=== PATIENT | male | born 1930 | race Caucasian/White ===

== ENCOUNTER 2017-01-30 18:55 | Inpatient (IN) | payer MEDICARE ==
[2017-01-30] VITALS (7 sets, daily range): BP systolic 107–142; BP diastolic 37–59; PULSE 84–94; RESP 16–20; O2SAT 94–99
[~2017-01-30] VITALS: Ht 172.7 cm; Wt 78.3 kg
[~2017-01-30 18:55] MED LIST: ATOR40TA69 PO; CITA10TA9 PO; CLOP75TA28 PO; DORZ10DR20 BOTH_EYES; GLIP2.5T2 PO; METO25TA6 PO; OMEP20CA11 PO; PRD5T PO; WARF1TAB6 PO; ZYL100 PO
--- NOTE | 2017-01-30 19:24 | ED.REPORT ---
HPI-General Illness Date of Service January 30, 2017 ED Provider: Matt Wheat DO An 86 year old male on Coumadin with a history of cerebellar CVA, diabetes, atrial fibrillation and hyperlipidemia is brought to the ED via EMS due to a possible fall. The pt was found down in his bedroom by paramedics today, laying on the floor. The pt's ex last spoke to him two days ago and states that he was acting normally at that time. She did not hear from him yesterday but did not think anything of it. She called the pt several times today without a reply, and asked the pt's grandson to check on him. The grandson found his car in the driveway but there was no reply when he knocked on the door. Paramedics were called and found the pt on the floor in his bedroom. He was febrile and disoriented with no recollection of the event. Nursing Notes Stated Complaint: FOUND DOWN Chief Complaint: General Complaint Nursing Notes Reviewed: Yes Allergies: Coded Allergies: Penicillins (Verified Allergy, Severe, HIVES, 01/30/17) Scheduled Allopurinol (Allopurinol) 100 Mg Tablet 100 MG PO BID Atorvastatin Calcium (Atorvastatin Calcium) 40 Mg Tablet 40 MG PO DAILY Citalopram (Citalopram) 10 Mg Tablet 10 MG PO DAILY Clopidogrel (Clopidogrel) 75 Mg Tablet 75 MG PO DAILY Dorzolamide HCl/Timolol Maleat (Dorzolamide-Timolol Eye Drops) 10 Ml Drops 1 DROP BOTH_EYES BID Glipizide ER (Glipizide ER) 2.5 Mg Tab.er.24 2.5 MG PO QAM Metoprolol Tartrate (Metoprolol Tartrate) 25 Mg Tablet 12.5 MG PO BID Omeprazole (Omeprazole) 20 Mg Capsule.dr 20 MG PO BID Prednisone (PredniSONE) 5 Mg Tab 5 MG PO QAM Tamsulosin (Flomax) 0.4 Mg Capsule 0.4 MG PO DAILY Warfarin Sodium (Warfarin Sodium) 1 Mg Tablet 3.5 MG PO HS General Time Seen by MD: 19:20 Chief Complaint Other (Found down) Hx Obtained From: Patient, Other family..., EMS Arrived By: Ambulance Sudden in Onset?: Yes Recent Healthcare: Recent doctor visit, Recent hospitalization Similar Sx Previous: No Past Medical History Past Medical History cerebellar CVA type 2 diabetes mellitus atrial fibrillation on Coumadin Gout polymyalgia rheumatica and giant cell arteritis Reports: GERD, Hyperlipidemia Past Surgical History TURP Smoking History Unknown if Ever Smoker Social History Other Social History: Good social support, Local resident Ambulatory Status Independent Review of Systems Unable to Obtain ROS Patient condition Physical Exam Vital Signs Vital Signs Date Time Temp Pulse Resp B/P Pulse Ox O2 Delivery O2 Flow Rate FiO2 01/30/17 21:27 91 18 121/37 99 Nasal Cannula 2 01/30/17 19:11 39.1 94 16 135/46 97 Nasal Cannula 2 Initial VS: Reviewed General/Constitutional: Awake, Alert somnolent but arousable no recollection of what happened slow to respond Head / Eyes: Normocephalic, PERRL, EOMI bruising to the left side of the face exudate in eyelashes ENT: Atraumatic, Airway patent, Mucous membranes moist Neck: Atraumatic, Supple, No meningismus, Full range of motion Respiratory / Chest: Breath sounds NL, Breath sounds = bilat, No respiratory distress Cardiovascular: Heart rate NL, Regular rhythm, Heart sounds NL Abdomen: Atraumatic, Soft epigastric tenderness Back: Atraumatic, Full range of motion Upper Extremities Upper Extremity / MS: Atraumatic, Full range of motion Lower Extremity / Pelvis / MS: No deformity, Neurologic intact, Vascular intact pain with range of motion of the hips Skin: Color NL, No rash, Warm, Dry 10 cm x 4 cm area of erythema and blistering on the left lateral chest Neurologic: Speech NL, No motor deficits, No sensory deficits Psychiatric: Affect NL, Mood NL Interpretation & Diagnostics Interpretation & Diagnostics: Pelvis X-Ray: IMPRESSION: 1. No definite fracture or dislocation, with evaluation of the right femoral neck slightly limited. If clinical concern persists, recommend further evaluation with CT. Dictated by: Jacob Mckeon M.D. on 01/30/2017 at 20:48 Approved by: Jacob Mckeon M.D. on 01/30/2017 at 20:50 Lab Results Interpretation Result Diagram: 01/30/17190901/30/171909 Test 01/30/17 19:10 01/30/17 20:05 01/30/17 20:30 White Blood Count 10.8th/mm3 (3.8-10.1) Red Blood Count 4.18mil/mm3 (4.40-5.80) Hemoglobin 9.1g/dL (13.8-17.2) Hematocrit 31.0% (41.0-50.0) Mean Corpuscular Volume 74.2fL (81-100) Mean Corpuscular Hemoglobin 21.8pg (27.0-35.0) Mean Corpuscular Hemoglobin Concent 29.4% (32.0-37.0) Red Cell Distribution Width 17.4% (12.3-15.4) Platelet Count 328bil/L (150-400) Neutrophils (%) (Auto) 81.0% (40-74) Lymphocytes (%) (Auto) 8.4% (14-46) Monocytes (%) (Auto) 10.5% (4-12) Eosinophils (%) (Auto) 0% (0-5) Basophils (%) (Auto) 0.1% (0-3) Prothrombin Time 12.6sec (8.1-12.5) Prothromb Time International Ratio 1.17ratio Sodium Level 135mEq/L (134-144) Potassium Level 4.1mEq/L (3.5-5.2) Chloride Level 98mEq/L (97-108) Carbon Dioxide Level 19mmol/L (18-29) Blood Urea Nitrogen 25mg/dL (8-27) Creatinine 1.38mg/dL (0.76-1.27) Estimat Glomerular Filtration Rate 52mL/min (>59) Glucose Level 187mg/dL (60-99) Calcium Level 9.0mg/dL (8.5-10.1) Phosphorus Level 1.7mg/dL (2.5-4.9) Magnesium Level 2.2mg/dL (1.6-2.6) Total Bilirubin 0.9mg/dL (0.0-1.2) Aspartate Amino Transf (AST/SGOT) 43U/L (0-50) Alanine Aminotransferase (ALT/SGPT) 18U/L (0-44) Alkaline Phosphatase 66U/L (25-160) Total Creatine Kinase 996U/L (21-232) Troponin T < 0.010ug/L (0.0-0.011) Total Protein 7.7g/dL (6.4-8.4) Albumin 3.6g/dL (3.4-5.0) Procalcitonin 0.75ng/mL (0.00-0.08) Lactic Acid Level 1.9mmol/L (0.4-2.0) Urine Color Yellow (YELLOW) Urine Appearance Clear (CLEAR,HAZY) Urine pH 5.5 (5.0-8.0) Urine Specific [place] 1.030 (1.003-1.035) Urine Protein 100mg/dL (NEG,TRACE) Urine Glucose (UA) Negativemg/dL (NEGATIVE) Urine Ketones 15mg/dL (NEGATIVE) Urine Occult Blood Moderate (NEGATIVE) Urine Nitrite Negative (NEGATIVE) Urine Bilirubin Negative (NEGATIVE) Urine Urobilinogen Normalmg/dL (NORMAL) Urine Leukocyte Esterase Negative (NEGATIVE) Urine RBC 3-10/hpf (0-2) Urine WBC 0-5/hpf (0-5) Urine Epithelial Cells None/hpf (NONE-MOD) Urine Crystals None seen (NONE SEEN) Urine Bacteria Few/hpf (NONE-FEW) Urine Hyaline Casts None/lpf (NONE) Urine Granular Casts None seen (NONE SEEN) Urine Waxy Casts None seen (NONE SEEN) Urine Red Blood Cell Casts None seen (NONE SEEN) Urine White Blood Cell Casts None seen (NONE SEEN) Urine Mucus None seen (None Seen) Urine Trichomonas None seen (NONE SEEN) Urine Yeast None (NONE SEEN) Urinalysis Comment None Pulse Oximetry Interpretation Pulse Oximetry Interpretation: 97% on nasal cannula Pulse Oximetry: Pulse Ox normal ECG Interpretation ECG Interpretation: normal sinus rhythm with a rate of [address] segments no signs of ischemia Time: 19:34 Interpreted by: ED physician X-Ray Chest Interpretation Chest Xray Interpretation: IMPRESSION: 1. No acute traumatic abnormality. Dictated by: Jacob Mckeon M.D. on 01/30/2017 at 19:51 Approved by: Jacob Mckeon M.D. on 01/30/2017 at 19:51 Interpretation / Wet Read by: Interpret - Radiologist CT Head Interpretation IMPRESSION: 1. No acute intracranial abnormality. 2. Mild chronic white matter small vessel ischemic changes and moderate cerebral volume loss. 3. Mild sinus mucosal disease. Dictated by: Jacob Mckeon M.D. on 01/30/2017 at 20:01 Approved by: Jacob Mckeon M.D. on 01/30/2017 at 20:03 CT Abd / Pelvis Interpretation IMPRESSION: 1. Right lower lobe consolidation consistent with pneumonia given clinical history. Consider followup x-ray to demonstrate resolution. 2. 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 Dictated by: Jcaob Mckeon M.D. on 01/30/2017 at 21:06 Approved by: Jacob Mckeon M.D. on 01/30/2017 at 21:13 Interpretation / Wet Read by: Interpret - Radiologist Re-Eval/Medical Decision Source of Hx: Old records Time of Eval: 19:20 Patient Status: Condition improved Re-Evaluation/Progress Note: Pt and family informed of the plan for admission during the initial interview. The pt and his family understand and agree with the plan. All questions are addressed at this time. Consultation : Referral / Consult Name: Lesli Amor DO Consulted With: Hospitalist Call Returned at: 21:55 Staffing Coordinator: Agrees with eval, Agrees with plan, Accepts admit Note: Spoke with Dr. Amor, hospitalist, regarding pt's case. Dr. Amor agrees with the evaluation and agrees to admit the pt. Counseled Regarding: Diagnosis, Lab results, Need for admission Discharge & Departure Primary Impression: Sepsis Sepsis type: sepsis due to unspecified organism Qualified Code: A41.9 - Sepsis, unspecified organism Additional Impressions: Pneumonia Pneumonia type: due to unspecified organism Laterality: right Lung location : lower lobe of lung Qualified Code: J18.1 - Lobar pneumonia, unspecified organism Injury to chest wall Encounter type: initial encounter Qualified Code: S29.9XXA - Unspecified injury of thorax, initial encounter Disposition: ADMITTED TO HOSPITAL Discharge Condition All VS Reviewed: Yes Condition: Stable Referrals: Alexandro Lao MD (PCP) Crit Care Except Billable Proc Time Spent: 165-194 minutes Services Performed: Patient management by me, Time spent at bedside, Reviewing test results, Reviewing imaging, Discussing patient care, Documentation in record, Time with fam/surrogate Scribe Attestation Portions of this note were transcribed by Franco Pope. I, Dr. Wheat personally performed the history, physical exam and medical decision-making; I reviewed and confirmed the accuracy of the information in the transcribed note. Signed by: Jed Fam, 01/30/17 and 2245. copies to: Alexandro Lao MD, Todd P DO January 30, 2017 19:24 FRANCO POPE January 30, 2017 20:10
[2017-01-30] MEDS ORDERED: cefTRIAXone Inj 2,000 MG in Dextrose 5% Minibag Plus 50 ML IV ONE (19:25)
[2017-01-30] MEDS ORDERED: 0.9% Sodium Chloride 1,000 ML IV ONE (19:25)
[2017-01-30] MEDS ORDERED: TAMS0.4C98 PO (19:27)
[2017-01-30 19:29] LABS: BASOPHILS % (AUTO) 0.1 % (0-3); EOSINOPHILS % (AUTO) 0 % (0-5); MONOCYTES % (AUTO) 10.5 % (4-12); Mean Corpuscular Hemoglobin 21.8 pg (27.0-35.0); Mean Corpuscular Volume 74.2 fL (81-100); Platelet Count 328 bil/L (150-400)
--- NOTE | 2017-01-30 19:53 | DRSVH ---
PROCEDURE: X-RAY CHEST ONE VIEW, PORTABLE ([id number]) INDICATIONS: fall TECHNIQUE: One view of the chest was acquired. COMPARISON: [facility], CR, XR CHEST 1VW (PORTABLE), 08/20/2016, 16:24. FINDINGS: Surgical changes and devices: None. Lungs and pleura: No pleural effusions or pneumothorax. Lungs are clear. Mediastinum: Mediastinal contours appear normal. Heart size is normal. Bones and chest wall: No displaced fractures. No suspicious bony lesions. Overlying soft tissues a ppear unremarkable. IMPRESSION: 1. No acute traumatic abnormality. Dictated by: Jacob Mckeon M.D. on 01/30/2017 at 19:51 Approved by: Jacob Mckeon M.D. on 01/30/2017 at 19:51
[2017-01-30 19:55] LABS: INR 1.17 ratio
[2017-01-30 20:02] LABS: Magnesium 2.2 mg/dL (1.6-2.6)
[2017-01-30 20:03] LABS: TROPONIN T < 0.010 ug/L (0.0-0.011)
--- NOTE | 2017-01-30 20:05 | DRSVH ---
PROCEDURE: CT BRAIN WITHOUT CONTRAST ([id number]) INDICATIONS: altered mental status TECHNIQUE: Noncontrast 4.5 mm thick angled axial sections acquired from the foramen magnum to the vertex, with c oronal reformats. COMPARISON: [facility], CT, BRAIN W/O CONTRAST, 03/04/2009, 21:27. FINDINGS: Image quality: Excellent. CSF spaces: Basal cisterns are patent. No extra-axial fluid collections. The ventricles are symmet amos in size and shape. There is moderate cerebral volume loss, with resultant ventricular and sulcal prominence. Brain: No intracranial hemorrhage, mass, or mass effect. There are subcortical, periventricular and deep white matter hypodensities consistent with mild chronic small vessel ischemic changes. There i s intracranial internal carotid artery atherosclerosis. Skull and face: Calvarium and visualized facial bones appear intact, without suspicious lesions. Sinuses: Visualized sinuses demonstrate mild mucosal thickening in the frontal, ethmoid, and sphenoi d sinuses. Mastoid air cells are clear. IMPRESSION: 1. No acute intracranial abnormality. 2. Mild chronic white matter small vessel ischemic changes and moderate cerebral volume loss. 3. Mild sinus mucosal disease. Dictated by: Jacob Mckeon M.D. on 01/30/2017 at 20:01 Approved by: Jacob Mckeon M.D. on 01/30/2017 at 20:03
--- NOTE | 2017-01-30 20:57 | DRSVH ---
PROCEDURE: X-RAY PELVIS, ONE OR TWO VIEWS ([id number]) INDICATIONS: fall TECHNIQUE: 2 AP views of the pelvis acquired. COMPARISON: None. FINDINGS: Bones: No definite fractures or dislocations. Evaluation of right femoral neck is limited due to sl ight rotation. Soft tissues: Visualized bowel gas pattern is normal. No suspicious soft tissue calcifications. IMPRESSION: 1. No definite fracture or dislocation, with evaluation of the right femoral neck slightly limited. If clinical concern persists, recommend further evaluation with CT. Dictated by: Jacob Mckeon M.D. on 01/30/2017 at 20:48 Approved by: Jacob Mckeon M.D. on 01/30/2017 at 20:50
[2017-01-30 21:03] LABS: APPEARANCE,URINE CLEAR (CLEAR,HAZY); COLOR,URINE YELLOW (YELLOW); OCCULT BLOOD,URINE MODERATE (NEGATIVE); PH,URINE 5.5 (5.0-8.0); UROBILINOGEN,URINE NORMAL (NORMAL)
--- NOTE | 2017-01-30 21:20 | DRSVH ---
PROCEDURE: CT ABDOMEN AND PELVIS WITH CONTRAST ([id number]) INDICATIONS: sepsis, abdominal pain, epigastric region TECHNIQUE: After the administration of oral and intravenous contrast, 5 mm thick sections acquired from the diap hragms to the symphysis. 5 mm thick coronal and sagittal reformats were performed. For radiation do se reduction, the following was used: automated exposure control, adjustment of mA and/or kV accordi ng to patient size. COMPARISON: [facility], CR, XR CHEST 1VW (PORTABLE), 01/30/2017, 19:16. [facility], CT, ABD/PELVIS W/CON (PNL), 05/21/2008, 0:00. FINDINGS: Image quality: Excellent. ABDOMEN: Lung bases: There is confluent consolidation within the right lower lobe. Mild atelectasis is also d emonstrated bilaterally in the lung bases. Heart size is normal. Solid organs: Liver and spleen are normal in size and enhancement. Gallbladder is surgically absent . Biliary system is non-dilated. Pancreas enhances normally. No adrenal nodules. Kidneys are norm al in size and enhancement, without hydronephrosis. Peritoneum and bowel: Stomach, small bowel, and colon loops are normal in caliber and wall thickness . The appendix is not discretely identified and likely surgically absent. No free fluid or air. Nodes and vessels: No retroperitoneal or mesenteric adenopathy. Aorta and inferior vena cava are no rmal in caliber. There is a short segment dissection or penetrating atherosclerotic ulcer redemonstr ated in the infrarenal abdominal aorta with interval increased thrombosis within the false lumen. Miscellaneous: No ventral hernias. PELVIS: Genitourinary: Bladder wall thickness is normal. There is an enlarged prostate redemonstrated with a small surgical defect centrally. There is hypoattenuation of the peripheral zone of the prostate a gain noted. Miscellaneous: No inguinal hernias or adenopathy. Bones: No suspicious bony lesions. No vertebral body compression fractures. IMPRESSION: 1. Right lower lobe consolidation consistent with pneumonia given clinical history. Consider follow up x-ray to demonstrate resolution. 2. 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 Dictated by: Jacob Mckeon M.D. on 01/30/2017 at 21:06 Approved by: Jacob Mckeon M.D. on 01/30/2017 at 21:13
[2017-01-30] MEDS ORDERED: Polyethylene Glycol (PEG) 17 Gm Powder PO PRN (22:40)
[2017-01-30] MEDS ORDERED: Alum-Mag Hydrox-Simeth 30 mL Suspension PO PRN (22:40)
[2017-01-30] MEDS: 0.9% Sodium Chloride 1,000 ML IV SCH (23:54)
[2017-01-31] VITALS (9 sets, daily range): BP systolic 84–124; BP diastolic 42–62; PULSE 76–98; RESP 20–28; O2SAT 90–97
--- NOTE | 2017-01-31 00:24 | PCM.HPMED ---
Subjective Date of Service January 30, 2017 Primary Provider: Admitting Physician: Lesli Amor DO Primary Care Physician: Alexandro Lao MD Attending Physician: Lesli Amor DO Chief Complaint: Found down at home. History of Present Illness: Mr. Bao Russell (Ted) is an 86 year old gentleman on Coumadin with a history of cerebellar CVA, diabetes, NSTEMI with angioplasty 2016 to the RCA, atrial fibrillation and hyperlipidemia is brought to the ED via EMS due to being found down at home. The pt was found down in his bedroom by paramedics , laying face down on the floor. The pt's ex last spoke to him two days ago and states that he was acting normally at that time. She did not hear from him yesterday but did not think anything of it. She called the pt several times 01/29/17 without a reply, and asked the pt's grandson to check on him. The grandson found his car in the driveway but there was no reply when he knocked on the door. Paramedics were called and found the pt on the floor in his bedroom. He was febrile and disoriented with no recollection of the event. Upon interview on the [facility], patient was moderately alert, oriented to person and president (Trump) not time or place. Patient complains of no pain at this time nor has any other complaints when questioned. However on physical exam he has marked decreased strength and range of motion in his left shoulder and very tender to palpation on the anterior left shoulder. He has no recollection of events leading up to a possible fall or passing out. In the emergency department patient was febrile at 37.6, peak of 38.1 pulse remained around 90, respiratory rate 18, blood pressure 121/37 now stabilized at 142/60, 99% on 2 L nasal cannula. Initial labs white count 10.8, neutrophils 81%, lymphs 8.4, hemoglobin 9.1, electrolytes including calcium mag normal, creatinine 1.38, glucose 187, troponins negative TLT normal, phosphorus 1.7, lactic acid 1.9, CK 996 and pro calcitonin 0.75. Blood cultures 2 were taken and influenza screen was negative. Review of Systems: A comprehensive review of systems was conducted with the patient and found to be negative except as above in the History of Present Illness. Allergies Coded Allergies: Penicillins (Verified Allergy, Severe, HIVES, 01/30/17) Home Medications Allopurinol 100 mg Atorvastatin 40 mg daily Citalopram 10 mg daily Clopidogrel 75 mg daily Bernard some mild/timolol 10 mL drops both eyes twice a day Glipizide 2.5 mg by mouth every morning ER Metoprolol tartrate 25 mg twice a day Omeprazole 20 mg twice a day Prednisone 5 mg in the morning Tamsulosin 0.4 mg daily Warfarin 1 mg tablets at 3.5 mg at night PMH cerebellar CVA type 2 diabetes mellitus atrial fibrillation on Coumadin Gout polymyalgia rheumatica and giant cell arteritis Reports: GERD, Hyperlipidemia Surgical History TURP Family History Patient unable to relay family information at this time. Social History Hx Alcohol Use: No Hx Substance Use: No Hx Tobacco Use: No Smoking Status: Unknown if Ever Smoker Exam Vital Signs Vital Sign - Last Date Time Temp Pulse Resp B/P Pulse Ox O2 Delivery O2 Flow Rate FiO2 01/30/17 23:20 84 142/59 01/30/17 22:45 38.1 20 94 Nasal Cannula 2.00 Exam General: No acute distress unless palpated, well-developed, well-nourished, appropriately interactive HEENT: Normocephalic, atraumatic. External ears without defect. Pupils equal, round, and reactive to light and accommodation. Anicteric sclerae, moist conjunctivae, mildly encrusted discharge of eyelids bilaterally, and no lid lag. Oropharynx free of erythema, copious thrush of oral mucous. Neck: Supple with full range of motion. No jugular venous distension. No bruits. No lymphadenopathy or thyromegaly. Cardiovascular: Mildly tachycardic rate and regular rhythm with no murmurs, rubs , or gallops appreciated Pulmonary: Clear to auscultation bilaterally with no crackles, wheezes, or rhonchi. Normal respiratory effort with no use of accessory muscles. GI: Bowel tones present. Soft, nontender, nondistended. No hepatosplenomegaly or masses appreciated. Extremities: No clubbing, cyanosis, edema, or lymphadenopathy appreciated. Left shoulder TTP anteriorly with marked decrease in ROM. Skin: Normal temperature, turgor, and texture; no rash, ulcers, or subcutaneous nodules appreciated. Lymph: no cervical or supraclavicular lymphadenopathy Neurological: Cranial nerves grossly intact. Normal muscle strength on the right upper extremity, decreased in the left, tone, and bulk. Sensory function within normal limits. Walks with a cane to ambulate. Psychiatric: Normal mood and affect. Alert and oriented to person and presided ( POTUS), Not oriented to place, and time. Lab and Diagnostics Result Diagram: 01/30/17190901/30/171909 X-Rays, CTs and MRIs Patient Name: BAO RUSSELL MR#: [id number] [place] [facility] [place] Phys: Matt Wheat DO Date of Service: 01/30/172044 PROCEDURE: CT ABDOMEN AND PELVIS WITH CONTRAST ([id number]) INDICATIONS: sepsis, abdominal pain, epigastric region TECHNIQUE: After the administration of oral and intravenous contrast, 5 mm thick sections acquired from the diaphragms to the symphysis. 5 mm thick coronal and sagittal reformats were performed. For radiation dose reduction, the following was used : automated exposure control, adjustment of mA and/or kV according to patient size. COMPARISON: [facility], CR, XR CHEST 1VW (PORTABLE), 01/30/2017, 19: 16. [facility], CT, ABD/PELVIS W/CON (PNL), 05/21/2008, 0:00. FINDINGS: Image quality: Excellent. ABDOMEN: Lung bases: There is confluent consolidation within the right lower lobe. Mild atelectasis is also demonstrated bilaterally in the lung bases. Heart size is normal. Solid organs: Liver and spleen are normal in size and enhancement. Gallbladder is surgically absent. Biliary system is non-dilated. Pancreas enhances normally. No adrenal nodules. Kidneys are normal in size and enhancement, without hydronephrosis. Peritoneum and bowel: Stomach, small bowel, and colon loops are normal in caliber and wall thickness. The appendix is not discretely identified and likely surgically absent. No free fluid or air. Nodes and vessels: No retroperitoneal or mesenteric adenopathy. Aorta and inferior vena cava are normal in caliber. There is a short segment dissection or penetrating atherosclerotic ulcer redemonstrated in the infrarenal abdominal aorta with interval increased thrombosis within the false lumen. Miscellaneous: No ventral hernias. PELVIS: Genitourinary: Bladder wall thickness is normal. There is an enlarged prostate redemonstrated with a small surgical defect centrally. There is hypoattenuation of the peripheral zone of the prostate again noted. Miscellaneous: No inguinal hernias or adenopathy. Bones: No suspicious bony lesions. No vertebral body compression fractures. IMPRESSION: 1. Right lower lobe consolidation consistent with pneumonia given clinical history. Consider followup x-ray to demonstrate resolution. 2. 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 Dictated by: Jacob Mckeon M.D. on 01/30/2017 at 21:06 Approved by: Jacob Mckeon M.D. on 01/30/2017 at 21:13 Patient Name: BAO RUSSELL MR#: [id number] [place] [facility] [place]ing Phys: ANT GARCES MD Date of Service: 01/30/171918 PROCEDURE: X-RAY CHEST ONE VIEW, PORTABLE ([id number]) INDICATIONS: fall TECHNIQUE: One view of the chest was acquired. COMPARISON: [facility], CR, XR CHEST 1VW (PORTABLE), 08/20/2016, 16 :24. FINDINGS: Surgical changes and devices: None. Lungs and pleura: No pleural effusions or pneumothorax. Lungs are clear. Mediastinum: Mediastinal contours appear normal. Heart size is normal. Bones and chest wall: No displaced fractures. No suspicious bony lesions. Overlying soft tissues appear unremarkable. IMPRESSION: 1. No acute traumatic abnormality. Dictated by: Jacob Mckeon M.D. on 01/30/2017 at 19:51 Approved by: Jacob Mckeon M.D. on 01/30/2017 at 19:51 Assessment & Plan She did Mr. Bao Russell (Ted) is an 86 year old gentleman on Coumadin with a history of cerebellar CVA, diabetes, NSTEMI with angioplasty Aug 2016 to the RCA , atrial fibrillation and hyperlipidemia is brought to the ED via EMS due to being found down at home. The pt was found down in his bedroom by paramedics , laying face down on the floor. The pt's ex last spoke to him two days ago and states that he was acting normally at that time. She did not hear from him 01/28/17, Paramedics were called and found the pt on the floor in his bedroom. He was febrile and disoriented with no recollection of the event. Upon interview in the [facility], patient was moderately alert, oriented to person and president (Trthalia) not time or place. Patient complains of no pain at this time nor has any other complaints when questioned. However on physical exam he has marked decreased strength and range of motion in his left shoulder and very tender to palpation on the anterior left shoulder and wrist. He has no recollection of events leading up to a possible fall or passing out. In the emergency department patient was febrile at 37.6, peak of 38.1 pulse remained around 90, respiratory rate 18, blood pressure 121/37 now stabilized at 142/60, 99% on 2 L nasal cannula. Initial labs white count 10.8, neutrophils 81%, lymphs 8.4, hemoglobin 9.1, electrolytes including calcium mag normal, creatinine 1.38, glucose 187, troponins negative AST/ALT normal, phosphorus 1.7, lactic acid 1.9, CK 996 and procalcitonin 0.75. Blood cultures 2 were taken and influenza screen was negative. 1. Altered mental status, present on admission, improving. - Pelvis X-Ray negative,reviewed on admission - CT brain - no acute inter-cranial process - Blood Cx pending - Consider Swallow study in the AM, then Carb consistent diet. 2. Acute kidney Injury - Follow I/O's closely, Guallpa in place. - IV fluids as above. - Nephrology consult - Repeat AM labs 3. Pneumonia, present on admission, Active. - CT Abdomen - RLL consolidation consistent with pneumonia. - Sputum cx pending - Flu negative - Viral PCR - Procalcitonin - 0.75. - S. Pneumo / Legionella urine antigen - Received Ceftriaxone In ED. Started Ceftriaxone and Azithromycin. - Droplet precautions. 4. Rhabdomyolysis, present on admission. Active. - CK 996 - UA yellow, protein 100, RBC 3-10, occult blood moderate, - NS 500 ml bolus then maintenance NS at 150 ml / hour - Repeat CK in the AM. 5. Anemia, present on admission, Stable. - Hgb 9.1 - Type and cross. - CT abdomen negative. - Stool Guaiac ordered. - Follow H&H. 6. Aortic dissection, present on admission, active. - CT Abdomen - Short segment dissection or penetrating atherosclerotic ulcer redemonstrated within the aorta with increased thrombus within the false lumen. Previous imaging 05/20/2008 Focal dissection versus ulcerated plaque involving the distal abdominal aorta - Bilateral BPs/ pulses - Cardiology consult. 7. Non insulin using type II Diabetes, present on admission, active - Continue home glipizide. - Diabetic diet. - A1c pending. 8. Chronic Anticoagulation, Subtherapeutic, present on admission, Active. - Per records, placed on Warfarin for Afib, currently sinus rhythm - INR 1.17 - Continue home warfarin. - Hold Clopidgrel, Per Cardiology notes 3-6 mo of Clopidogrel from aug 2016, then d/c and restart ASA with warfarin. - Other chronic conditions Gout - Continue home allopurinol BPH - Continue home Flomax Chronic Afib - currently Sinus rhythm - On tele - continue home metoprolol when appropriate Acetaminophen for mild pain when necessary. Bowel regimen Senna and MiraLAX scheduled and PRN. Zofran when necessary for nausea and vomiting. SubQ heparin held for now. SCDs in place. Disposition: Likely here for > 2 midnights. Dependent upon functional status. Will be discharged home. Pain Evaluation: Adequate Pain Control Resuscitation Status: CPR: Attempt Resuscitation Attending Statement The patient was seen and examined together with house staff on 01/30/2017 and I agree with the history, exam and plan as outlined in the note above. HALI TEE DO January 30, 2017 23:35 Lesli Amor DO January 31, 2017 06:51
--- NOTE | 2017-01-31 01:19 | NUR ---
Admit Patient admitted to [facility] 2002 at 2230. Patient heavily somnolent on arrival and unable to follow directions, not arousable to repeated or painful stimuli. Shortly after arrival, patient did arouse to repeated stimuli and was able to answer some questions. Oriented to self; unable to give correct date. Knows he is in the hospital after being told. SpO2 stable on 2L O2 via nasal cannula. NS running at 150. Guallpa catheter placed for strict I&Os. Continue to monitor.
[2017-01-31] MEDS: 0.9% Sodium Chloride 1,000 ML IV SCH ×4 (05:53→23:39)
[2017-01-31] MEDS: cefTRIAXone Inj 1,000 MG in Dextrose 5% Minibag Plus 50 ML IV SCH ×2 (07:49→21:35)
[2017-01-31] MEDS: Azithromycin Inj 500 MG in Dextrose 5% w/Vial Mate 250 ML IV SCH (10:05)
--- NOTE | 2017-01-31 10:06 | DRSVH ---
PROCEDURE: X-RAY LEFT SHOULDER, MINIMUM TWO VIEWS ([id number]) INDICATIONS: decreased ROM and pain TECHNIQUE: 3 views of the shoulder were acquired. COMPARISON: None. FINDINGS: Bones: No fractures or dislocations. No suspicious bony lesions. Visualized ribs appear intact. S evere AC joint degeneration. There is glenohumeral degenerative spurring Soft tissues: No suspicious soft tissue calcifications. IMPRESSION: No fracture. Degenerative changes as above Dictated by: Joao Obrien M.D. on 01/31/2017 at 10:02 Approved by: Joao Obrien M.D. on 01/31/2017 at 10:04
--- NOTE | 2017-01-31 10:08 | DRSVH ---
PROCEDURE: X-RAY LEFT WRIST, TWO VIEWS ([id number]) INDICATIONS: decreased ROM and pain TECHNIQUE: 2 views of the wrist were acquired. COMPARISON: None. FINDINGS: Bones: No fractures or dislocations. No suspicious bony lesions. First CMC and triscaphe joint dege neration is present. Soft tissues: No suspicious soft tissue calcifications. IMPRESSION: No fracture Dictated by: Joao Obrien M.D. on 01/31/2017 at 10:04 Approved by: Joao Obrien M.D. on 01/31/2017 at 10:06
--- NOTE | 2017-01-31 11:24 | NUR ---
Social Work Note - Initial Assessment: D: See Initial Assessment. The Pt is an 86 y/o male that was admitted for sepsis, pneumonia, aortic dissection. The Pt's PCP is MD Alexandro Lao and his primary insurance is Medicare with an [employer] [facility] supplement, no LTC or VA benefits reported. EMR reviewed. SW met with the Pt and the Pt's to explain role and discuss discharge planning, SW telephone number written on white board. Pt resting, information provided to SW from the Pt's . The Pt does not have an Advanced Directive, Pt's reports that they have been given copies to complete. The Pt alone lives independently in [place]. The Pt has two homes, one mobile home with 3 steps leading into the home in [place] and another one story home in [place] where his resides. The Pt's reported that he will stay with her in the home in [place] after discharge. The Pt continues to drive, does not use any DME, and has no HH history. The Pt had a 19 day stay at [facility] in 2003. The Pt's is declining the need SNF services at this time, but would possibly be interested in HH if needed. Cardiology consult placed. Pt is currently on IV Abx. PT and swallow eval pending. SW will continue to follow. A: Pt who is independently at baseline. P: The Pt is not medically stable for discharge, likely to be hospitalized for another 2-3 days as per morning rounds. Cardiology to be involved. Pt currently on IV Abx. PT and swallow eval pending. SW will continue to follow. ANGELA Vargas Aircraft Engine Technician ANGELA Hdz Addendum: 01/31/17 at 1134 by [facility] Amended: Links added.
[2017-01-31 12:13] LABS: BASOPHILS % (AUTO) 0.2 % (0-3); EOSINOPHILS % (AUTO) 0 % (0-5); Mean Corpuscular Hemoglobin 21.8 pg (27.0-35.0); Mean Corpuscular Volume 75.4 fL (81-100); NEUTROPHILS % (AUTO) 82.6 % (40-74); Platelet Count 251 bil/L (150-400)
[2017-01-31 12:41] LABS: Phosphorus 1.1 mg/dL (2.5-4.9)
--- NOTE | 2017-01-31 13:23 | NUR ---
Evaluation completed. Please go to "Notes" then click on "Assessments and Notes" (bottom left corner of screen). Then select appropriate discipline tab on top of screen.
[2017-01-31] MEDS ORDERED: SODIUM PHOSPHATE IV ONE (14:35)
[2017-01-31] MEDS ORDERED: DEXTROSE 5% IV ONE (14:35)
--- NOTE | 2017-01-31 15:38 | NUR ---
Evaluation completed. Please go to "Notes" then click on "Assessments and Notes" (bottom left corner of screen). Then select appropriate discipline tab on top of screen.
--- NOTE | 2017-01-31 15:48 | PCM.PNMED ---
Subjective Date of Service January 31, 2017 Subjective Mr. Min Russell (Ted) is an 86 year old gentleman on Coumadin with a history of cerebellar CVA, diabetes, NSTEMI with angioplasty 2016 to the RCA, atrial fibrillation and hyperlipidemia is brought to the ED via EMS due to being found down at home. Today is hospital day 1. Mr. Russell states that he does not feel well. He is fatigued and has generalized weakness. He does not have any chest pain, abdominal pain, or dyspnea. He continues to be disoriented. He knows his name and age but does not know where he is located right now. Exam Vital Signs Vital Sign - Last Date Time Temp Pulse Resp B/P Pulse Ox O2 Delivery O2 Flow Rate FiO2 01/31/17 14:47 39.3 90 24 103/42 90 Nasal Cannula 2.00 Intake and Output 01/30/17 01/30/17 01/31/17 Cumulative From/Thru 15:00 23:00 07:00 01/30/17 19:11 - 01/31/17 06:03 Intake Total 1000 ml 881 ml 1881 ml Output Total 400 ml 400 ml Balance 1000 ml 481 ml 1481 ml Intake Oral 0 ml 0 ml IV Total 1000 ml 881 ml 1881 ml Output Urine Total 400 ml 400 ml # Voids 1 1 Exam General: Elderly man laying in bed, mild distress secondary to confusion, well- developed, well-nourished, appropriately interactive HEENT: Bruise left mosque. Normocephalic. External ears without defect. Anicteric sclerae, moist conjunctivae, mildly encrusted discharge of eyelids bilaterally, and no lid lag. Neck: Supple with full range of motion. Cardiovascular: Regular rate and rhythm with no murmurs, rubs, or gallops appreciated Pulmonary: Clear to auscultation bilaterally with no crackles, wheezes, or rhonchi. Normal respiratory effort with no use of accessory muscles. GI: Bowel tones present. Soft, nontender, nondistended. No hepatosplenomegaly or masses appreciated. Extremities: Left shoulder TTP anteriorly. Skin: Normal temperature, turgor, and texture; no rash appreciated. Neurological: Cranial nerves grossly intact. Normally walks with a cane to ambulate. Psychiatric: Normal mood and affect. Drowsy, oriented to person and his age, disoriented to place or to time. IVs and Medications Medications Reviewed: Medications were reviewed in detail Lab and Diagnostics Result Diagram: 01/31/17 1205 01/31/17 1205 X-Rays, CTs and MRIs PROCEDURE: CT ABDOMEN AND PELVIS WITH CONTRAST IMPRESSION: 1. Right lower lobe consolidation consistent with pneumonia given clinical history. Consider followup x-ray to demonstrate resolution. 2. 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 Approved by: Jacob Mckeon M.D. on 01/30/2017 at 21:13 PROCEDURE: X-RAY CHEST ONE VIEW, PORTABLE IMPRESSION: 1. No acute traumatic abnormality. Approved by: Jacob Mckeon M.D. on 01/30/2017 at 19:51 PROCEDURE: CT BRAIN WITHOUT CONTRAST IMPRESSION: 1. No acute intracranial abnormality. 2. Mild chronic white matter small vessel ischemic changes and moderate cerebral volume loss. 3. Mild sinus mucosal disease. Approved by: Jacob Mckeon M.D. on 01/30/2017 at 20:03 PROCEDURE: X-RAY PELVIS, ONE OR TWO VIEWS IMPRESSION: 1. No definite fracture or dislocation, with evaluation of the right femoral neck slightly limited. If clinical concern persists, recommend further evaluation with CT. Approved by: Jacob Mckeon M.D. on 01/30/2017 at 20:50 PROCEDURE: X-RAY LEFT WRIST, TWO VIEWS IMPRESSION: No fracture Approved by: Joao Obrien M.D. on 01/31/2017 at 10:06 PROCEDURE: X-RAY LEFT SHOULDER, MINIMUM TWO VIEWS IMPRESSION: No fracture. Degenerative changes as above Approved by: Joao Obrien M.D. on 01/31/2017 at 10:04 Assessment & Plan Mr. Min Russell (Ted) is an 86 year old gentleman on Coumadin with a history of cerebellar CVA, diabetes, NSTEMI with angioplasty Aug 2016 to the RCA , atrial fibrillation and hyperlipidemia is brought to the ED via EMS due to being found down at home. Hospital day 1. 1. Acute encephalopathy, present on admission, improving. - Most likely septic encephalopathy due to pneumonia below in combination with chronic small vessel ischemic changes as seen on CT brain - Pelvis X-Ray negative, reviewed on admission - CT brain - no acute intra-cranial process - Blood Cx pending - Swallow study ordered, then Carb consistent diet. 2. Acute kidney failure, present on admission, improving - Follow I/O's closely, Guallpa in place. - IV fluids as above. - Consider nephrology consult tomorrow - Repeat AM labs 3. Acute community acquired pneumonia, present on admission, Active. - CT Abdomen - RLL consolidation consistent with pneumonia. - Sputum cx pending - Flu negative - Viral PCR negative - S. Pneumo / Legionella urine antigens negative - Procalcitonin - 0.75. - MRSA presumptive positive - Received Ceftriaxone In ED. Continued Ceftriaxone and Azithromycin. If MRSA confirmed positive, will adjust antibiotics accordingly. - Continue droplet precautions until MRSA confirmed. 4. Rhabdomyolysis, present on admission. Active. - CK 996, increased to 1228 - UA yellow, protein 100, RBC 3-10, occult blood moderate, - NS 500 ml bolus then maintenance NS at 150 ml / hour - Repeat CK in the AM. - Consider nephrology consult tomorrow morning. 5. Anemia, present on admission, Stable. - Hgb 9.1 initially - Type and cross. - CT abdomen negative. - Stool Guaiac ordered. - Follow H&H and consider transfusing 6. Aortic dissection, present on admission, active. - CT Abdomen - Short segment dissection or penetrating atherosclerotic ulcer redemonstrated within the aorta with increased thrombus within the false lumen. Previous imaging 05/20/2008 Focal dissection versus ulcerated plaque involving the distal abdominal aorta - Bilateral BPs/ pulses - Consider cardiology consult tomorrow morning - Monitor blood pressure 7. Non insulin using type II Diabetes, present on admission, active - Hold home glipizide for now as patient was NPO and monitor blood glucose - Swallow evaluation as above - A1c pending. 8. Chronic Anticoagulation, Subtherapeutic, present on admission, Active. - Per records, placed on Warfarin for Afib, currently sinus rhythm - INR 1.17 - Continue home warfarin, pharmacy to order - Hold Clopidgrel, Per Cardiology notes 3-6 mo of Clopidogrel from aug 2016, then d/c and restart ASA with warfarin. 9. Status post possible ground level fall - Likely related to encephalopathy as above - Pt was found down on ground - CT brain without contrast did not show any intracranial hemorrhage - Chest, pelvic, left shoulder and left wrist x-rays did not show any fractures - Continue to monitor Other chronic conditions Gout - Hold home allopurinol due to possible JESSE as above BPH - Hold home Flomax and monitor urine output and blood pressure for now and resume if blood pressure stable Chronic Afib - currently Sinus rhythm - On tele - Hold home metoprolol and continue when appropriate Acetaminophen for mild pain when necessary. Bowel regimen Senna and MiraLAX scheduled and PRN. Zofran when necessary for nausea and vomiting. SubQ heparin held for now. SCDs in place. Disposition: Likely here for > 2 midnights. Dependent upon functional status. Will be discharged home. Pain Evaluation: Adequate Pain Control VTE Prophylaxis: SCDs Resuscitation Status: CPR: Attempt Resuscitation Attending Statement The patient was seen and examined together with Dr. Castañeda on 01/31/27 and I agree with the history, exam and plan as outlined in the note above. . Linda Castañeda DO January 31, 2017 15:03 Harry Negron MD January 31, 2017 17:26
--- NOTE | 2017-01-31 16:10 | PCM.CONPHA ---
Subjective Requesting Provider: Linda Castañeda DO Found down at home. Reason for Pharmacy Consult: Anticoagulation Management Assessment/Plan Assessment/Plan Pharmacy Warfarin Management: Patient with a history of A-Fib and current pneumonia admitted after being down for possibly as much as 2 days. INR is subtherapeutic at 1.17 today. The patient's home warfarin dose is 3.5mg every night. Orders have been entered for warfarin 5mg tonight, INRs have been ordered for 10 consecutive mornings. Pharmacy will monitor INR and dose warfarin daily until INR is within the goal range of 2-3. Drug/drug interaction with azithromycin will tend to raise INR. Preethi Will [facility] January 31, 2017 16:10
--- NOTE | 2017-01-31 19:53 | NUR ---
Neuro status/temperature/CBGs Pt will answer "yes" or "no" to questions but often does not appear to understand what you are asking. Very confused and lethargic. Difficult time pronouncing his name. Unsure of where he is or date or why. Temp this AM 38.8. MD notified. Temp increased to 39.4. 325mg APAP given per new MD order. APAP needed to be crushed. Pt able to swallow very small bites very slowly with much prompting. Temp increased to 39.6. An additional 325mg APAP given per order. Temp decreased to 39.0. notified that pt had a difficult time taking pills crushed PO. new order for IV APAP. Noc RN notified. Pt NPO most of shift. CBG 147, 152, and 173.
[2017-01-31] MEDS: Acetaminophen IV 1,000 MG in IV Premix 1 EACH IV PRN (21:57)
[2017-01-31] MEDS ORDERED: Linezolid Inj 600 MG in IV Premix 1 EACH IV SCH (23:08)
[2017-01-31] MEDS ORDERED: 0.9% Sodium Chloride 1,000 ML IV ONE (23:10)
[2017-01-31] MEDS: Linezolid Inj 600 MG in IV Premix 1 EACH IV SCH (23:39)
[2017-02-01] VITALS (9 sets, daily range): BP systolic 99–140; BP diastolic 45–96; PULSE 72–101; RESP 22–32; O2SAT 92–98
[2017-02-01 00:18] LABS: Phosphorus 2.7 mg/dL (2.5-4.9)
--- NOTE | 2017-02-01 01:05 | ABG ---
DateTimeAnalyzed 01:01:00 -_ pH ____7.373 - 7.350 7.450 pCO2 ___33.4__ -mmHg 35.0 45.0 pO2 ___78.8__ -mmHg 69.0 116 HCO3- ___19.0__ -mmol/L 22.0 26.0 ABE ___-5.2__ -mmol/L -2.0 2.0 tHb ____6.8__ -g/dL O2Hb ___94.2__ -% COHb ____1.8__ -% MetHb ____0.4__ -% sO2 ___96.3__ -% 25.0 FIO2 ___40.0__ -% Drawn By blf - Date/Time Notified____ 01:04:00 -_ Spontaneous_RR ___20.0__ -b/min Liter_Flow ____6.0__ -L/min Oxygen Device 1 _OXY MASK - Notified By blf - Notified Whom ___DR. MCCART - B 748 -mmHg tO2 ____9.2__ -Vol% Samir test _Positive -
[2017-02-01] MEDS ORDERED: 0.9% Sodium Chloride 1,000 ML IV ONE (01:20)
[2017-02-01 01:39] LABS: BASOPHILS % (AUTO) 0.3 % (0-3); EOSINOPHILS % (AUTO) 0 % (0-5); MONOCYTES % (AUTO) 7.9 % (4-12); Mean Corpuscular Hemoglobin 21.2 pg (27.0-35.0); Mean Corpuscular Volume 76.4 fL (81-100); NEUTROPHILS % (AUTO) 80.5 % (40-74); Platelet Count 222 bil/L (150-400)
[2017-02-01 04:41] LABS: BASOPHILS % (AUTO) 0.2 % (0-3); EOSINOPHILS % (AUTO) 0 % (0-5); MONOCYTES % (AUTO) 7.5 % (4-12); Mean Corpuscular Hemoglobin 21.3 pg (27.0-35.0); Mean Corpuscular Volume 75.8 fL (81-100); NEUTROPHILS % (AUTO) 82.9 % (40-74); Platelet Count 263 bil/L (150-400)
[2017-02-01] MEDS ORDERED: Furosemide 10 mg/mL 2 mL Inj IVPUSH ONE (04:45)
[2017-02-01 04:51] LABS: INR 1.2 ratio
[2017-02-01 05:02] LABS: Phosphorus 2.6 mg/dL (2.5-4.9)
--- NOTE | 2017-02-01 05:44 | NUR ---
Transfer to CCU At HS, oral temperature 39.5C; MD leyva, 1 gram IV Tylenol administered with temperature reassessment of 38.8C. Cool washcloths applied to forehead for additional comfort. Pt alert to self, does not verbalize needs though responds "yes" and "no" to questions. Follows commands but does not hold attention for longer than several seconds. At 2300, pt BP decreased to 84/50 despite IVF of NS @ 150ml/hr. pageesme, one-time 500ml fluid bolus administered and Linezolid ordered. BP remained largely unchanged on reassessment after bolus infusion; slight decrease in DBP to 41. Additional 500ml bolus ordered and administered, with increase in BP to 96/42 after completion. orders placed for transfer to CCU; pt transported via bed to CCU room 2020 - report given to Dottie Coyle and transfer of care initiated. Temperature and blood pressure on arrival to CCU room were 37.7C and 107/45.
--- NOTE | 2017-02-01 06:18 | NUR ---
CCU transfer Assumed care of pt after transferring to CCU ~ at 0045. Pt was transferred due to hypotension and possible septicemia. Pt received NS boluses prior to transfer (please refer to previous RN note). Pt BP improved after 1L NS bolus per DR. Hernandez's orders. Later on pt became SOB and appears on respiratory distress. Lungs crackly. Dr. Hernandez notified. Received order for Lasix. Pt improved after Lasix. Breathing effort improved. No further distress noted. VSS. No further overt complications noted. Please refer to CCU flowsheet, VS, nursing note for further details.
[2017-02-01] MEDS: Acetaminophen IV 1,000 MG in IV Premix 1 EACH IV PRN (07:36)
[2017-02-01] MEDS: cefTRIAXone Inj 1,000 MG in Dextrose 5% Minibag Plus 50 ML IV SCH ×2 (07:57→20:50)
[2017-02-01 08:18] LABS: Unsaturated Iron Binding 230.8 ug/dL
[2017-02-01] MEDS: Azithromycin Inj 500 MG in Dextrose 5% w/Vial Mate 250 ML IV SCH (08:53)
[2017-02-01] MEDS ORDERED: Sodium Chloride LOK Flush 10 mL Syringe IVFLUSH PRN ×2 (08:55)
--- NOTE | 2017-02-01 09:22 | DRSVH ---
PROCEDURE: X-RAY CHEST ONE VIEW, PORTABLE ([id number]) INDICATIONS: weezing TECHNIQUE: One view of the chest was acquired. COMPARISON: [facility], CR, XR CHEST 1VW (PORTABLE), 01/30/2017, 19:16. [facility], CT, CT ABD PELVIS W CON, 01/30/2017, 21:02. FINDINGS: Surgical changes and devices: Cholecystectomy clips. Lungs and pleura: No pleural effusions or pneumothorax. Bibasilar airspace opacity present, right g reater than left and there is chronic elevation of the right hemidiaphragm. Mediastinum: Mediastinal contours appear normal. Heart size is normal. Bones and chest wall: No suspicious bony lesions. Overlying soft tissues appear unremarkable. IMPRESSION: Bibasilar atelectasis versus aspiration or pneumonia. Correlate clinically. Dictated by: Cleveland Martinez A Interpreted: Michelle Mancia MD on 02/01/2017 at 9:19 Transcribed by: SHAHZAD on 02/01/2017 at 9:21 Approved by: Michelle Mancia MD, PhD on 02/01/2017 at 15:04
[2017-02-01] MEDS ORDERED: MethylprednisoLONE Sodium Succinate 62.5 mg/mL 2 mL Inj IVPUSH ONE (10:25)
--- NOTE | 2017-02-01 10:26 | NUR ---
Pt transferred to CCU. Discussed PO intake and pt's status with RN. RN reported no s/s of aspiration with breakfast. Pt scheduled for multiple procedures today. RN will call NET LEAD DEVELOPER when pt is ready and appropriate for follow up assessment.
[2017-02-01] MEDS: Linezolid Inj 600 MG in IV Premix 1 EACH IV SCH ×2 (10:58→22:09)
--- NOTE | 2017-02-01 11:09 | PCM.PNMED ---
Subjective Date of Service February 01, 2017 Subjective Mr. Min Russell (Ted) is an 86 year old gentleman on Coumadin with a history of cerebellar CVA, diabetes, NSTEMI with angioplasty 2016 to the RCA, atrial fibrillation and hyperlipidemia is brought to the ED via EMS due to being found down at home. Today is hospital day 2. Overnight: Blood cultures came back with gram positive cocci and his MRSA screen is presumptively positive. Linezolid was added. Patient's MAP was in the 60s and he received 2 fluid boluses without any improvement. An ABG was then done. A third fluid bolus was given and he improved. However, his lungs had crackles on exam. He then received a 20 mg Lasix dose once. His lungs improved. This morning, he does not have subjective fever, chest pain, dyspnea, cough, or abdominal pain. He is oriented to person and to place. He is not oriented to time. Exam Vital Signs Vital Sign - Last Date Time Temp Pulse Resp B/P Pulse Ox O2 Delivery O2 Flow Rate FiO2 02/01/17 04:30 37.5 85 30 127/96 92 OxyMask 6.00 Intake and Output 01/31/17 01/31/17 02/01/17 Cumulative From/Thru 15:00 23:00 07:00 01/30/17 19:11 - 02/01/17 06:03 Intake Total 1600 ml 3476 ml 6957 ml Output Total 900 ml 800 ml 2100 ml Balance 700 ml 2676 ml 4857 ml Intake Oral 0 ml 0 ml 0 ml IV Total 1600 ml 3476 ml 6957 ml Output Urine Total 900 ml 800 ml 2100 ml # Voids 0 1 Exam General: Elderly man laying in bed with oxymask in place, alert, no acute distress, well-developed, well-nourished, appropriately interactive HEENT: Ecchymosis left mu-ism. Normocephalic. External ears without defect. Anicteric sclerae, moist conjunctivae, mildly encrusted discharge of eyelids bilaterally with erythema, and no lid lag. Neck: Supple with full range of motion. Cardiovascular: Regular rate and rhythm with no murmurs, rubs, or gallops appreciated Pulmonary: Bilateral diffuse crackles worse on the left. Normal respiratory effort with no use of accessory muscles. GI: Bowel tones present. Soft, nontender, nondistended. Midline bruit. Extremities: Left shoulder TTP anteriorly. Skin: 4 cm abrasion on lateral left forearm with surrounding erythema and warmth extending from lateral wrist to mid forearm. Neurological: Cranial nerves grossly intact. Normally walks with a cane to ambulate. Psychiatric: Normal mood and affect. Alert, oriented to person and to place, disoriented to time. IVs and Medications Medications Reviewed: Medications were reviewed in detail Lab and Diagnostics Result Diagram: 02/01/1742402/01/17424 X-Rays, CTs and MRIs PROCEDURE: CT ABDOMEN AND PELVIS WITH CONTRAST IMPRESSION: 1. Right lower lobe consolidation consistent with pneumonia given clinical history. Consider followup x-ray to demonstrate resolution. 2. 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 Approved by: Jacob Mckeon M.D. on 01/30/2017 at 21:13 PROCEDURE: X-RAY CHEST ONE VIEW, PORTABLE IMPRESSION: 1. No acute traumatic abnormality. Approved by: Jacob Mckeon M.D. on 01/30/2017 at 19:51 PROCEDURE: CT BRAIN WITHOUT CONTRAST IMPRESSION: 1. No acute intracranial abnormality. 2. Mild chronic white matter small vessel ischemic changes and moderate cerebral volume loss. 3. Mild sinus mucosal disease. Approved by: Jacob Mckeon M.D. on 01/30/2017 at 20:03 PROCEDURE: X-RAY PELVIS, ONE OR TWO VIEWS IMPRESSION: 1. No definite fracture or dislocation, with evaluation of the right femoral neck slightly limited. If clinical concern persists, recommend further evaluation with CT. Approved by: Jacob Mckeon M.D. on 01/30/2017 at 20:50 PROCEDURE: X-RAY LEFT WRIST, TWO VIEWS IMPRESSION: No fracture Approved by: Joao Obrien M.D. on 01/31/2017 at 10:06 PROCEDURE: X-RAY LEFT SHOULDER, MINIMUM TWO VIEWS IMPRESSION: No fracture. Degenerative changes as above Approved by: Joao Obrien M.D. on 01/31/2017 at 10:04 PROCEDURE: X-RAY CHEST ONE VIEW, PORTABLE IMPRESSION: Bibasilar atelectasis versus aspiration or pneumonia. Correlate clinically. Approved by: Michelle Mancia MD, PhD on 02/01/2017 at 15:04 Assessment & Plan Mr. Min Russell (Ted) is an 86 year old gentleman on Coumadin with a history of cerebellar CVA, diabetes, NSTEMI with angioplasty Aug 2016 to the RCA , atrial fibrillation and hyperlipidemia is brought to the ED via EMS due to being found down at home. Hospital day 2. Septic shock, acute. - Patient met criteria with fever, respiratory rate, and heart rate. Patient has positive blood cultures and pneumonia. - Patient was hypotensive on 01/31/17 in the evening and remained hypotensive until receiving 3 liters of fluid - Patient initially started on ceftriaxone and azithromycin. Linezolid was added last night (01/31/17) because of presumptive MRSA. - Continue antibiotics per infectious disease - Infectious disease consulted and following, their time and recommendations are appreciated. Acute encephalopathy, present on admission, improving. - Most likely septic encephalopathy due to pneumonia below in combination with chronic small vessel ischemic changes as seen on CT brain. Possible encephalitis. - Pelvis x-ray negative, reviewed on admission - CT brain - no acute intra-cranial process - Blood cultures are positive for gram positive cocci, probable coagulase negative Staph - Swallow study ordered and puree diet currently - Antibiotics as above - Consider a lumbar puncture if patient's mental status does not continue to improve Acute community acquired pneumonia, present on admission, Active. - CT Abdomen - Right lower lobe consolidation consistent with pneumonia. - Sputum cultures ordered - Flu negative - Viral PCR negative - S. Pneumo / Legionella urine antigens negative - Procalcitonin - 0.75 and decreased to 0.54 - MRSA presumptive positive - Received Ceftriaxone In ED. Continued Ceftriaxone and Azithromycin. Linezolid added 01/31/2017. - Continue droplet precautions until MRSA confirmed. Bacteremia, acute. - Blood cultures shows gram positive cocci, probable coagulase negative Staph - HIV and hepatitis C screens ordered - Repeat blood cultures today - Echocardiogram to evaluate for possible endocarditis Possible left forearm cellulitis, acute. - Erythema and edema surrounding an abrasion on his left forearm - Wound consultation requested - Continue to monitor - Antibiotics as above Rhabdomyolysis, present on admission. Active. - CK 996, increased to 1240 - Initial UA yellow, protein 100, RBC 3-10, occult blood moderate, - NS 500 ml bolus then maintenance NS at 150 ml / hour - Repeat CK in the AM. Acute kidney failure, present on admission, improving - Follow I/O's closely, Guallpa in place. - IV fluids as above. - Repeat AM labs Anemia, present on admission, stable. - Iron studies show low iron and low TIBC, more consistent with anemia of chronic disease - Hgb 9.1 initially - Veronica and christy. - CT abdomen negative. - Stool Guaiac negative - Follow H&H and consider transfusing Chronic polymyalgia rheumatica and giant cell arteritis - Patient was taking 5 mg prednisone daily intermediate card tender. Possibly adrenal insufficiency contributing to above hypotension. - Pt started on stress dosing of steroids today. Given 1 dose of methylprednisolone 125 mg IV once and then 40 mg IV every 8 hours. - Monitor patient's response to steroids and will adjust dose accordingly Aortic dissection, present on admission, active. - CT Abdomen - Short segment dissection or penetrating atherosclerotic ulcer redemonstrated within the aorta with increased thrombus within the false lumen. Previous imaging 05/20/2008 Focal dissection versus ulcerated plaque involving the distal abdominal aorta - Bilateral BPs/ pulses - Consider cardiology consult - Monitor blood pressure Non insulin using type II Diabetes, present on admission, active - Swallow evaluation as above - HgbA1c 6.2%. - Hold home glipizide for now as patient was NPO and monitor blood glucose Chronic Anticoagulation, Subtherapeutic, present on admission, Active. - Per records, placed on Warfarin for Afib, currently sinus rhythm - INR 1.17 initially - Continue home warfarin, pharmacy to order - Hold Clopidgrel, Per Cardiology notes 3-6 mo of Clopidogrel from aug 2016, then d/c and restart ASA with warfarin. Status post possible ground level fall - Likely related to encephalopathy as above - Pt was found down on ground - CT brain without contrast did not show any intracranial hemorrhage - Chest, pelvic, left shoulder and left wrist x-rays did not show any fractures - Continue to monitor Other chronic conditions: Gout - Hold home allopurinol due to possible acute kidney injury as above BPH - Hold home Flomax and monitor urine output and blood pressure for now and resume if blood pressure stable Chronic Atrial fibrillation - currently sinus rhythm - on telemetry - Hold home metoprolol and continue when appropriate Acetaminophen for mild pain when necessary. Bowel regimen Senna and MiraLAX scheduled and PRN. Zofran when necessary for nausea and vomiting. SubQ heparin held for now. SCDs in place. Disposition: Likely here for > 2 midnights. Dependent upon functional status. Pain Evaluation: Adequate Pain Control VTE Prophylaxis: SCDs VTE Mechanical Devices: Intermittant Pneumatic CD Resuscitation Status: CPR: Attempt Resuscitation Attending Statement The patient was seen and examined together with Dr. Castañeda on 02/01/2017 and I agree with the history, exam and plan as outlined in the note above. . Linda Castañeda DO February 01, 2017 06:47 Harry Negron MD February 01, 2017 16:03
--- NOTE | 2017-02-01 11:20 | NUR ---
Social Work Note - Continued Discharge Planning: D/A: The Pt is an 86 y/o male that was admitted for sepsis, pneumonia, aortic dissection. PT eval completed 01/31/17, recommending discharge to SNF. SW met with the Pt and the Pt's to review PT recommendations, SNF choice list provided to . declining the need for this service but would be agreeable to HH if needed. would like time to review list, SW to follow up with the Pt and regarding HH choice. ID following, Pt currently on IV Abx. SW to follow up regarding IV Abx needs. Swallow study completed, see note. Progress notes also reflect the consideration of Cardiology and Nephrology. SW will continue to follow. P: The Pt is not medically stable for discharge, will likely discharge home with family POV and HH when medically stable. PT eval completed, declining the need for this service but agreeable to HH if needed. HH list provided, SW to follow up with regarding choice. ID following, SW to follow for IV Abx needs. SW will continue to follow. Scott Block MSW Dianetic Counselor ANGELA Hdz
--- NOTE | 2017-02-01 11:42 | NUR ---
NUTRITION ASSESSMENT Assess: 86 YO M admitted with sepsis, pneumonia, and aortic dissection. Pt transferred to CCU for hypotension and sepsis. Pt confused and lethargic per notes. PMHX: Cerebellar CVA, type 2 DM, afib, gout, polymyalgia rheumatica, GERD, HLD. DIET: Pureed, nectar thick liquids. PO intake refusal X [address] LABS: Cr 1.36, Glu 152, Ca 7.2, AST 59, Alb 3.0 MEDICATIONS: Reviewed. Coumadin. GI: No BM noted. SKIN: No issues noted. ANTHROPOMETRICS: Wt 80.3 kg, BMI 26.9 kg/m2, Admit wt: 74.6 kg. ESTIMATED NEEDS: Calories: 7222-6678 kcal/day (25-30 kcal/kg BW) Protein: 64-120 g/day (0.8-1.5 g/kg BW) NUTRITION DIAGNOSIS: 1) Inadequate oral intake related to decreased ability to consume sufficient energy as evidenced by poor PO intake. INTERVENTION: 1) Diet advancement per speech therapy. 2) If pt's PO intake remains poor, will add nutrition supplements to encourage adequate nutrition. MONITOR/EVALUATE: PO intake, diet advance/tolerance, labs, GI/nutrition status. Follow per moderate nutrition risk guidelines.
--- NOTE | 2017-02-01 12:48 | CONS ---
[address] [address] CONSULTATION REPORT PATIENT: BAO SAN : 1930 MR#: [id number] ADMIT: 01/30/2017 JOB ID: [id number] DATE OF SERVICE: 02/01/2017 REQUESTING PHYSICIAN: I thank Dr. Castañeda for this timely consult. REASON FOR CONSULTATION: High fevers in a gentleman who was found on floor in his home two days ago. HISTORY OF PRESENT ILLNESS: The patient is an 86-year-old gentleman with multiple medical problems, but his , who is with him in the room, states that he is usually very functional and gets around and is able to do things on his own without difficulty. His past medical history is notable for a variety of problems, but particularly diabetes, some atrial fibrillation, and a history of CVA. He is also on chronic low-dose prednisone for temporal arteritis. The patient's said she saw him Tuesday which was January 28, and he was doing extremely well. She did not see him again until the and then became concerned when she was unable to get a hold of him and had a grandson go over and check on him. Grandson was unable to get him to answer the doorbell, so paramedics were called, and they eventually found the patient on the floor face down. It was unknown how long he had been down with the longus possible interval being two days, but possible of course he was there a much shorter period of time. When he was found on the floor, he had a profoundly altered mental status and was, therefore, emergently transported to the hospital where an extensive series of investigations have taken place over the past 36 hours. These investigations have turned up evidence that he may have a right lower lobe pneumonia, but he has continued to have rather severe hypotension, as well as high fevers which are very sustained in an almost linear fashion. Today, the patient has awakened from whatever occurred to him over the weekend. He tells us he has very little in the way of symptoms. He denies headache or any visual change. Denies pain. Denies sore throat. Denies stiff neck or confusion. He likewise states that he has minimal cough or shortness of breath. No chest pain. He does have a bit of a cough, but this is not impressive or terribly disconcerting to him. He denies nausea, vomiting, or diarrhea. He denies having had dysuria, urgency, or frequency before admission, and since then he has had a Guallpa. He denies pain in his legs or arms or other focal complaints. PAST MEDICAL HISTORY: 1. Organic heart disease. a. Atrial fibrillation. b. Coronary artery disease, status post stent placement in the RCA in August 30. 2. Cerebral CVA. 3. Insulin-dependent diabetes. 4. Gout. 5. PMR/temporal arteritis controlled with prednisone 5 a day. 6. GERD. SOCIAL HISTORY: The patient is a nonsmoker for 40 years and currently a nondrinker. He lives with his off and on, as they have two residences, and sometimes they co-existence sometimes they live separately which unfortunately was the case over this weekend when they were not together. The patient has never resided outside the [place]. He did serve in the [place] during the [place] but did not leave the [address] [place] [address]. FAMILY HISTORY: Negative for tuberculosis according to the , but she is not clear about which relatives are negative. REVIEW OF SYSTEMS: Done. The patient states he has no headache, no acute visual change. No sore throat. No stiff neck. He has a cough which is minimally productive and not especially severe. No pleuritic chest pain. No substernal chest pain. No nausea, vomiting, diarrhea. No dysuria or urgency prior to the Guallpa insertion. No new problems with his joints. Remainder of the review of systems is negative. PHYSICAL EXAMINATION: Reveals a febrile gentleman, temperature 38.6 this morning. He has had sustained high fevers over the past 40 hours, starting off at 39 degrees and basically bouncing between 38 to 39.5 degrees. He has essentially never been afebrile which is interesting. The patient's mental status is alert and oriented x1. Though he is able to provide some history, he is not clear on location or dates. Examination of the head reveals no trauma or temporal wasting. Eyes without conjunctivitis, though he does have some conjunctival pallor. Nose is normal. Oral cavity: No thrush or hairy leukoplakia. Neck is supple without JVD or adenopathy. His lungs are notable for decreased breath sounds and rales at the right base posteriorly. Cardiac tones: Regular rate and rhythm. I do not appreciate a murmur but the isolation quality stethoscope. Patient's abdomen is distended and perhaps a bit doughy. Despite this, he insists it is nontender except right in the epigastrium where there is some very minimal tenderness with horrendous palpation. No organomegaly is noted. No obvious ascites. No abnormalities of the penis or scrotum. A Guallpa catheter is present. His extremities are free of synovitis or cellulitis with two notable exceptions. In the left lateral chest, there is about a 6 x 5 area of erythematous nontender scan with a large fluid-filled bullous present over the inferior portion of this lesion. He also has a left forearm similar-appearing erythematous lesion with a much smaller bullae. No peripheral stigmata of endocarditis. Patient is neurologically grossly intact, and he can move everything, but we did not do a formal neuro exam. No skin rashes appreciated except for those two erythematous areas with bullae as mentioned above. LABORATORIES: Include white count 8800, hematocrit 30, platelet count 263. Creatinine 1.36. AST is 59, ALT 34, alk phos 55. CPK was 12,200. When he came in, it has really not changed much since then. Procalcitonin 0.54 down from 0.75 two days ago. Urinalysis without white cells. Serologic studies include hep C studies which are pending. It is unclear why a genotype and has been ordered in addition to the hep C, as I am not aware of any history of hep C. HIV has been ordered as well. Urine Legionella and pneumococcal antigens are negative. MRSA screen of the nares positive. 2/4 of initial blood cultures, both from one set, are growing a coag-negative staph. Influenza screen and respiratory viral PCR panel negative, and repeat blood cultures pending. X-rays include a chest x-ray which shows bibasilar atelectasis or pneumonia. The abdominal CT is more interesting in that one can clearly see right lower lobe consolidation. 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 Brain CT was unremarkable. IMPRESSION: This is a complex case of an 86-year-old gentleman whose overall health is fair. He was found down after an extended absence from his family without clear etiology. The differential diagnosis here includes altered mental status and loss of consciousness due to right lower lobe pneumonia or perhaps infection of the abdominal aortic aneurysm. I doubt that the abdominal aortic aneurysm is infected, as one would expect relatively constant and consistently positive blood cultures, and we only have 2/4 so far and these are growing coagulase-negative Staphylococcus. Another possibility in this patient as he has underlying clot such as a PE, as he is under-anticoagulated. Yet another possibility here is that his fevers are on the basis of abrupt steroid withdrawal. The tells us he has been on steroids for many years and that he gets quickly ill once steroids are stopped. His sustained fevers could be consistent with this diagnosis, but I think they are bit high for steroid withdrawal, and his electrolytes do not look addisonian, but I do think that it is important get him back on replacement doses of steroids. RECOMMENDATIONS: 1. I concur with the current antibiotics which includes Zyvox and ceftriaxone. 2. We await our cultures and studies which are pending. 3. I would strongly consider adding in stress dose steroids such as 100 mg q.8 h. of hydrocortisone or some similar replacement regimen while we sort this case out. If his fevers and other symptoms abruptly resolve with the replacement steroids, that would give us the diagnosis basically of acute adrenal insufficiency. 4. Ordinarily, patients with fever and confusion would get a lumbar puncture, but I think we do have another explanation that he does appear to have an infiltrate producing his fever and elevated procalcitonin. It would not be wrong, however, to subject the patient to a lumbar puncture and send it for the BioFire assay as well as cell count, glucose, and protein. The possibility of encephalitis is difficult to exclude in a patient like this. 5. Will continue to closely follow this patient with you. FORTUNATO
--- NOTE | 2017-02-01 13:41 | DRSVH ---
PROCEDURE: X-RAY PICC LINE PLACEMENT BY NURSE ([id number]) INDICATIONS: IV access for possible vasopressors COMPARISON: [facility], , PICC LINE PLACE BY NURSE (RISA), 05/21/2008, 11:27. FINDINGS: PICC was placed by the intravenous therapy team from the right side. Fluoroscopic spot fi lm demonstrates tip projected over the cavoatrial junction. IMPRESSION: Tip of PICC projected over the cavoatrial junction. Dictated by: Cleveland Martinez [facility] Interpreted: Michelle Mancia MD on 02/01/2017 at 13:40 Transcribed by: SHAHZAD on 02/01/2017 at 13:41 Approved by: Michelle Mancia MD, PhD on 02/01/2017 at 15:11
--- NOTE | 2017-02-01 15:02 | NUR ---
spiritual care; follow up supportive listening to pt's spouse as she shared updates and coping. continuing to follow as needed
--- NOTE | 2017-02-01 16:38 | PCM.PHAPRO ---
Progress Date of Service: February 01, 2017 Found down at home. Warfarin management per pharmacy Indication: atrial fibrillation Home warfarin dose: 3.5 mg daily Pertinent info: - Admitted to CCU. - Pneumonia, JESSE, rhabdo Date February 01-January INR 1.17 1.2 INR change 0.03 Warf Dose 5mg XXXXX INR remains subtherapeutic. Will order additional bolus dose. Give warfarin 5 mg PO once this evening. Pharmacy to continue to monitor and dose warfarin daily. Thank you, Emely Lanier Pharmacist Emely Lanier February 01, 2017 16:38
--- NOTE | 2017-02-01 18:02 | DRSVH ---
[facility] [address] [place] [address] Echocardiogram Report Name: BAO SAN Date: Height: 68 in Hospital Exam Location: [facility] Weight: 177 lb Gender: Male BSA: 1.9 m2 : 1930 Age: 86 yrs BP: 95/48 mm Hg Reason For Study: Pneumonia Ordering Physician: HOSPITALIST [facility] Performed By: Veronica Boyle Referring Physician: Dr. Jose Genao Interpretation Summary The left ventricle is normal in size, wall thickness, and systolic function without any focal wall motion abnormalities with the ejection fraction visually estimated to be 65-70%. Assessment of diastolic parameters indicates normal left ventricular diastolic function and normal filling pressures. There has been no significant change since the previous study. The right ventricle is normal in size and function and is unchanged compared to the previous study. The right ventricular systolic pressure is estimated at 30 mmHg assuming a right atrial pressure of 3 mm Hg. Comparison with the previous study is not possible because this was unable to be assessed on the previous study. The left atrium is mildly dilated and the right atrium is borderline dilated. Both atria have mildly increased in size since the prior echo exam. There is no significant valvular heart disease. There is trace mitral regurgitation that is less prominent compared to the previous study. Procedure: A two-dimensional transthoracic echocardiogram with color flow and Doppler was performed. The study quality was technically adequate. Comparison is made with the echocardiogram of 08-22-16. The patient was in normal sinus rhythm during the exam. Left Ventricle: The left ventricle is normal in size, wall thickness, and systolic function without any focal wall motion abnormalities. The ejection fraction is estimated to be 65-70%. Assessment of diastolic parameters indicates normal left ventricular diastolic function and normal filling pressures. There has been no significant change since the previous study. Right Ventricle: The right ventricle is normal in size and function. This is unchanged compared to the previous study. Atria: The left atrium is mildly dilated. Both atria have mildly increased in size since the prior echo exam. The right atrium is borderline dilated. The interatrial septum is intact with no evidence for an atrial septal defect. Mitral Valve: There is mild mitral annular calcification. The mitral valve leaflets appear mildly thickened, but open well. There is trace mitral regurgitation. This is less prominent compared to the previous study. Aortic Valve: The aortic valve is trileaflet. The aortic valve is slightly calcified. The aortic valve opens well. No aortic regurgitation is present. Tricuspid Valve: The tricuspid valve is normal in structure and function. There is a trace or physiologic amount of tricuspid regurgitation. The right ventricular systolic pressure is estimated at 30 mmHg assuming a right atrial pressure of 3 mm Hg. Comparison with the previous study is not possible because this was unable to be assessed on the previous study. Pulmonic Valve: The pulmonic valve is not well seen, but is grossly normal. There is no pulmonic valvular regurgitation. There is no significant valvular heart disease. Great Vessels: The aortic root is normal size. The dimensions of the ascending aorta are normal. The IVC is of normal diameter and collapses greater than 50% with a sniff. This suggests a low right atrial pressure of 3 mm Hg. Pericardium/ Pleura There is no pericardial effusion. There is no pleural effusion. MMode/2D Measurements & Calculations LVIDd: 4.4 cm LA dimension: 4.0 cm RA long axis Ao root diam LVIDs: 2.5 cm FS: 42.0 % LA A2 area: 22.4 cm RA area Aortic Jxn: 2.7 cm IVSd: 1.00 cm LA A4 area: 21.2 cm asc Aorta Diam LVPWd: 0.69 cm LA length (vol) : 19.3 cm RA vol Ao Arch Diam (Prox LA vol: 73.5 ml : 60.4 ml Trans): 2.8 cm LA vol index RA : 31.1 mm/ RVDd major IVC diam: 1.4 cm : 5.6 cm LV zheng. diameter/BSA LV sys. diameter/BSA RVD1 (basal) RVD2 (mid): 3.0 cm (cm/m^2): 2.2 (cm/m^2): 1.3 Doppler Measurements & Calculations Ao V2 max MV E max geoffrey MV E/A: 1.0 TR max geoffrey : 133.2 cm/sec : 121.7 cm/sec Med Peak E' Geoffrey : 262.0 cm/sec Ao max PG MV A max geoffrey TR max PG : 7.1 mmHg : 119.0 cm/sec E/E' med: 16.5 : 27.4 mmHg Ao mean PG MV P1/2t: 64.6 msec Lat Peak E' Geoffrey PA V2 max : 4.0 mmHg : 123.9 cm/sec E/E' lat: 13.0 PA mean PG E/e' average: 14.8 MV A dur: 0.12 sec PA Accel Time : 0.16 sec MV dec time MV P1/2t max geoffrey Ao V2 mean PA V2 mean : 0.22 sec : 92.7 cm/sec : 84.7 cm/sec MVA(P1/2t): 3.4 cm2 Ao V2 VTI: 29.8 cm Reading Physician:06:01 PM
--- NOTE | 2017-02-01 18:41 | NUR ---
Wound Care Wound orders for left forearm skin issue received. 86 yo male found down at home for unknown period of time. left volar forearm presents with open area probably related to a blister formation, measures 3 cm x 2 cm x 0.1 cm, this was cleaned and covered with xeroform and wrapped with gauze, can be changed prn. Patient also has a large blister at his left pectoral area into his axilla, this was drained, loose skin to act as dressing for now. Wound will follow up in 24 hours.
[2017-02-01] MEDS ORDERED: MethylprednisoLONE Sodium Succinate 40 mg/mL Inj IVPUSH SCH (20:30)
[2017-02-02] VITALS (8 sets, daily range): BP systolic 111–140; BP diastolic 44–98; PULSE 70–83; RESP 17–24; O2SAT 95–98
[2017-02-02 05:01] LABS: BASOPHILS % (AUTO) 0 % (0-3); EOSINOPHILS % (AUTO) 0 % (0-5); MONOCYTES % (AUTO) 2.7 % (4-12); Mean Corpuscular Hemoglobin 21.5 pg (27.0-35.0); Mean Corpuscular Volume 75.1 fL (81-100); NEUTROPHILS % (AUTO) 92.5 % (40-74); Platelet Count 215 bil/L (150-400)
--- NOTE | 2017-02-02 05:14 | NUR ---
Tele/pain/Mentation Oriented to self and place not time , [facility] [employer] [facility] [employer]лександр Ernandez was President, seems to be in good spirits, does not express pain, says he feels lousy . Has diverse bruising , skin tears , . NS@ TKO, Oxy Mask @ 5 L O2 Telemetry SR-80's.
[2017-02-02 05:18] LABS: INR 1.58 ratio
[2017-02-02] MEDS: MethylprednisoLONE Sodium Succinate 40 mg/mL Inj IVPUSH SCH ×2 (06:43→14:51)
[2017-02-02] MEDS: Linezolid Inj 600 MG in IV Premix 1 EACH IV SCH ×2 (08:30→21:43)
[2017-02-02] MEDS: Azithromycin Inj 500 MG in Dextrose 5% w/Vial Mate 250 ML IV SCH (09:41)
[2017-02-02] MEDS ORDERED: 0.9% Sodium Chloride 250 ML ONE ×2 (11:45→21:39)
[2017-02-02] MEDS: cefTRIAXone Inj 1,000 MG in Dextrose 5% Minibag Plus 50 ML IV SCH ×2 (11:52→21:43)
[2017-02-02] MEDS ORDERED: Glucose 40% Oral Gel 15 Gm Tube PO PRN (12:10)
[2017-02-02] MEDS: Insulin LISPRO 300 Unit/3 mL Inj SUBQ SCH ×3 (14:01→21:59)
--- NOTE | 2017-02-02 16:04 | NUR ---
SW - Continued Discharge Planning SW met with pt at bedside to attempt follow up re: PT's SNF recommendation. Pt's was not present and pt appeared disoriented, stated that it was best SW speak to . Pt stated will be back in room mid-late tomorrow morning (02/03). SW will follow up again tomorrow. ANGELA Gutierrez
--- NOTE | 2017-02-02 16:15 | NUR ---
Insulin, Orthostatic Blood Pressures, Multidisciplinary Communication 1207 - Noted his blood glucose at breakfast was 206 and at lunch was about 305. He was asymptomatic and did not have any insulin ordered. Spoke to Dr. Castañeda on the phone who said she would order some. It was ordered. 1240 - Asked Pharmacist Harsha Minor to change the insulin order to start at lunch instead of dinner like it had been ordered. Asked if it could be sent up as soon as possible for his high blood glucose. 1401 - His insulin came and was given to him by Divya Franz RN after she rechecked his blood glucose which was 251. This nurse was on a lunch break. 1545 - The CONTROL PANEL ASSEMBLER went in to assist him and attempted to take a set of orthostatic blood pressures. He was unable to sit and they were not completed. Notified Dr. Castañeda at 1600 and said the blood pressures could be attempted again tomorrow. Care continues.
--- NOTE | 2017-02-02 16:57 | PCM.PNMED ---
Subjective Date of Service February 02, 2017 Subjective Mr. Min Russell (Ted) is an 86 year old gentleman on Coumadin with a history of cerebellar CVA, diabetes, NSTEMI with angioplasty 2016 to the RCA, atrial fibrillation and hyperlipidemia is brought to the ED via EMS due to being found down at home. Today is hospital day 3. Today, he feels better. He continues to have a cough. He does not have fever, chills, chest pain, dyspnea, or abdominal pain. He states that he remembers falling from his bed and people breaking into his house. He is oriented to person, place, and time today. He was missing his eye glasses until his brought them in this morning. Exam Vital Signs Vital Sign - Last Date Time Temp Pulse Resp B/P Pulse Ox O2 Delivery O2 Flow Rate FiO2 02/02/17 03:47 37.2 78 20 113/48 97 OxyMask 5.00 Intake and Output 02/01/17 02/01/17 02/02/17 Cumulative From/Thru 15:00 23:00 07:00 01/30/17 19:11 - 02/02/17 06:54 Intake Total 850 ml 404 ml 8211 ml Output Total 1050 ml 450 ml 3600 ml Balance -200 ml -46 ml 4611 ml Intake Oral 0 ml IV Total 850 ml 404 ml 8211 ml Output Urine Total 1050 ml 450 ml 3600 ml # Voids 1 Exam General: Elderly man siting in bed with oxymask in place, alert, no acute distress, well-developed, well-nourished, appropriately interactive HEENT: Ecchymosis left buddhist. Normocephalic. External ears without defect. Anicteric sclerae, moist conjunctivae, mildly encrusted discharge of eyelids bilaterally with erythema, and no lid lag. Neck: Supple with full range of motion. Cardiovascular: Regular rate and rhythm with no murmurs, rubs, or gallops appreciated Pulmonary: Diffuse crackles on the right. Normal respiratory effort with no use of accessory muscles. GI: Bowel tones present. Soft, nontender, nondistended. Midline bruit. Extremities: Left shoulder TTP anteriorly. Skin: 4 cm abrasion on lateral left forearm with surrounding erythema and warmth extending from lateral wrist to mid forearm now with wound dressing in place. Mild erythema left pectoralis approximately 6 cm in diameter. Neurological: Cranial nerves grossly intact. Normally walks with a cane to ambulate. Psychiatric: Normal mood and affect. Alert, oriented to person, place. and time. IVs and Medications Medications Reviewed: Medications were reviewed in detail Lab and Diagnostics Result Diagram: 02/02/1744402/02/17444 X-Rays, CTs and MRIs PROCEDURE: CT ABDOMEN AND PELVIS WITH CONTRAST IMPRESSION: 1. Right lower lobe consolidation consistent with pneumonia given clinical history. Consider followup x-ray to demonstrate resolution. 2. 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 Approved by: Jacob Mckeon M.D. on 01/30/2017 at 21:13 PROCEDURE: X-RAY CHEST ONE VIEW, PORTABLE IMPRESSION: 1. No acute traumatic abnormality. Approved by: Jacob Mckeon M.D. on 01/30/2017 at 19:51 PROCEDURE: CT BRAIN WITHOUT CONTRAST IMPRESSION: 1. No acute intracranial abnormality. 2. Mild chronic white matter small vessel ischemic changes and moderate cerebral volume loss. 3. Mild sinus mucosal disease. Approved by: Jacob Mckeon M.D. on 01/30/2017 at 20:03 PROCEDURE: X-RAY PELVIS, ONE OR TWO VIEWS IMPRESSION: 1. No definite fracture or dislocation, with evaluation of the right femoral neck slightly limited. If clinical concern persists, recommend further evaluation with CT. Approved by: Jacob Mckeon M.D. on 01/30/2017 at 20:50 PROCEDURE: X-RAY LEFT WRIST, TWO VIEWS IMPRESSION: No fracture Approved by: Joao Obrien M.D. on 01/31/2017 at 10:06 PROCEDURE: X-RAY LEFT SHOULDER, MINIMUM TWO VIEWS IMPRESSION: No fracture. Degenerative changes as above Approved by: Joao Obrien M.D. on 01/31/2017 at 10:04 PROCEDURE: X-RAY CHEST ONE VIEW, PORTABLE IMPRESSION: Bibasilar atelectasis versus aspiration or pneumonia. Correlate clinically. Approved by: Michelle Mancia MD, PhD on 02/01/2017 at 15:04 Cardiac Echo Impressions Echocardiogram Report Interpretation Summary The left ventricle is normal in size, wall thickness, and systolic function without any focal wall motion abnormalities with the ejection fraction visually estimated to be 65-70%. Assessment of diastolic parameters indicates normal left ventricular diastolic function and normal filling pressures. There has been no significant change since the previous study. The right ventricle is normal in size and function and is unchanged compared to the previous study. The right ventricular systolic pressure is estimated at 30 mmHg assuming a right atrial pressure of 3 mm Hg. Comparison with the previous study is not possible because this was unable to be assessed on the previous study. The left atrium is mildly dilated and the right atrium is borderline dilated. Both atria have mildly increased in size since the prior echo exam. There is no significant valvular heart disease. There is trace mitral regurgitation that is less prominent compared to the previous study. Reading Physician:06: 01 PM Assessment & Plan Mr. Min Russell (Ted) is an 86 year old gentleman on Coumadin with a history of cerebellar CVA, diabetes, NSTEMI with angioplasty Aug 2016 to the RCA , atrial fibrillation and hyperlipidemia is brought to the ED via EMS due to being found down at home. Hospital day 3. Septic shock, acute, improving. - Patient met criteria with fever, respiratory rate, and heart rate. Patient has positive blood cultures and pneumonia. - Patient was hypotensive on 01/31/17 in the evening and remained hypotensive until receiving 3 liters of fluid - Patient initially started on ceftriaxone and azithromycin. Linezolid was added (01/31/17) for MRSA coverage - Infectious disease consulted and following, their time and recommendations are appreciated. Acute community acquired pneumonia, present on admission, Active. - CT Abdomen - Right lower lobe consolidation consistent with pneumonia. - Sputum cultures ordered - Flu negative - Viral PCR negative - S. Pneumo / Legionella urine antigens negative - Procalcitonin - 0.75 initially and 0.82 today - MRSA presumptive positive - Received Ceftriaxone In ED. Continued Ceftriaxone and Azithromycin. Linezolid added 01/31/2017. - Continue droplet precautions Acute encephalopathy, present on admission, improving. - Most likely septic encephalopathy due to pneumonia below in combination with chronic small vessel ischemic changes as seen on CT brain. Possible encephalitis. - Pelvis x-ray negative, reviewed on admission - CT brain - no acute intra-cranial process - Blood cultures are positive for gram positive cocci, probable coagulase negative Staph but repeat blood cultures show no growth to date - Swallow study ordered and puree diet currently - Antibiotics as above - Consider a lumbar puncture if patient's mental status does not continue to improve - Physical therapy to help with pt's weakness and mobility. Consider brain MRI if any focal neurological deficits noted with pt walking. Bacteremia, acute. - Blood cultures shows gram positive cocci, probable coagulase negative Staph - HIV and hepatitis C screens ordered - Repeat blood cultures show no growth to date - Echocardiogram as above did not show any signs of endocarditis Possible left forearm cellulitis and left anterior chest blister, acute, improving. - Erythema and edema surrounding an abrasion on his left forearm - Wound consulted and following. Their time and recommendations are appreciated. - Continue to monitor - Antibiotics as above Rhabdomyolysis, present on admission. improving. - CK 996, decreased to 545 today - Initial UA yellow, protein 100, RBC 3-10, occult blood moderate, - Discontinue normal saline - Repeat CK in the AM Acute kidney failure, present on admission, improving - Follow I/O's closely, Guallpa in place. - Repeat AM labs Anemia, present on admission, stable. - Iron studies show low iron and low TIBC, more consistent with anemia of chronic disease and likely a dilutional component from the amount of fluids patient has received. - Hgb 9.1 initially - Type and cross. - CT abdomen as above - Stool Guaiac negative - Follow H&H and consider transfusing Chronic polymyalgia rheumatica and giant cell arteritis - Patient was taking 5 mg prednisone daily snf. Possibly adrenal insufficiency contributing to above hypotension. - Pt started on stress dosing of steroids today. Given 1 dose of methylprednisolone 125 mg IV once and then 40 mg IV every 12 hours now - Monitor patient's response to steroids and will adjust dose accordingly Aortic dissection, present on admission, active. - CT Abdomen - Short segment dissection or penetrating atherosclerotic ulcer redemonstrated within the aorta with increased thrombus within the false lumen. Previous imaging 05/20/2008 Focal dissection versus ulcerated plaque involving the distal abdominal aorta - Consider cardiology consult - Monitor blood pressure Non insulin using type II Diabetes, present on admission, active - Swallow evaluation as above - HgbA1c 6.2%. - Hold home glipizide for now as patient was NPO and monitor blood glucose Chronic Anticoagulation, Subtherapeutic, present on admission, Active. - Per records, placed on Warfarin for Afib, currently sinus rhythm - INR 1.17 initially - Continue home warfarin, pharmacy to order - Hold Clopidgrel, Per Cardiology notes 3-6 mo of Clopidogrel from aug 2016, then d/c and restart ASA with warfarin. Status post possible ground level fall - Likely related to encephalopathy as above - Pt was found down on ground - CT brain without contrast did not show any intracranial hemorrhage - Chest, pelvic, left shoulder and left wrist x-rays did not show any fractures - Continue to monitor - Orthostatic vital signs when pt is able to stand Low phosphorus level, acute, present on admission, resolved. -Phosphorous level 1.1 but increased to 2.7 -Replenished with IV phosphorous Other chronic conditions: Gout - Hold home allopurinol due to possible acute kidney injury as above BPH - Hold home Flomax and monitor urine output and blood pressure for now and resume if blood pressure stable Chronic Atrial fibrillation - currently sinus rhythm - Hold home metoprolol and continue when appropriate Depression - Continue citalopram 10 mg once daily Acetaminophen for mild pain when necessary. Bowel regimen Senna and MiraLAX scheduled and PRN. Zofran when necessary for nausea and vomiting. SubQ heparin held for now. SCDs in place. Disposition: Likely here for > 2 midnights. Dependent upon functional status. Pain Evaluation: Adequate Pain Control VTE Prophylaxis: SCDs VTE Mechanical Devices: Intermittant Pneumatic CD Resuscitation Status: CPR: Attempt Resuscitation Attending Statement The patient was seen and examined together with Dr. Castañeda on 02/02/2017 and I agree with the history, exam and plan as outlined in the note above. . Linda Castañeda DO February 02, 2017 08:28 Harry Negron MD February 04, 2017 07:54
[2017-02-03 03:27] VITALS: BP 126/43; PULSE 65; RESP 20; O2SAT 97
[2017-02-03 05:49] LABS: BASOPHILS % (AUTO) 0.1 % (0-3); EOSINOPHILS % (AUTO) 0 % (0-5); MONOCYTES % (AUTO) 5.4 % (4-12); Mean Corpuscular Hemoglobin 21.5 pg (27.0-35.0); Mean Corpuscular Volume 74.8 fL (81-100); NEUTROPHILS % (AUTO) 88.8 % (40-74); Platelet Count 237 bil/L (150-400)
--- NOTE | 2017-02-03 06:05 | NUR ---
Fluid/No Tele NS @ TKO, 5 L O2 per NC , A&O x 3 , 02/03/17, triple lumen PICC , No C/O pain Not on Telemetry, could transfer t Addendum: 02/03/17 at 0607 by FRANKY OWENS RN Could transfer to another floor
[2017-02-03 06:12] LABS: INR 2.14 ratio
[2017-02-03 08:30] VITALS: BP 136/44; PULSE 61; RESP 18; O2SAT 100
[2017-02-03] MEDS ORDERED: MethylprednisoLONE Sodium Succinate 40 mg/mL Inj IVPUSH SCH (08:30)
[2017-02-03] MEDS: Insulin LISPRO 300 Unit/3 mL Inj SUBQ SCH ×4 (08:33→19:57)
[2017-02-03] MEDS: Azithromycin Inj 500 MG in Dextrose 5% w/Vial Mate 250 ML IV SCH (08:34)
[2017-02-03] MEDS: cefTRIAXone Inj 1,000 MG in Dextrose 5% Minibag Plus 50 ML IV SCH (08:34)
[2017-02-03] MEDS: Linezolid Inj 600 MG in IV Premix 1 EACH IV SCH ×2 (09:22→19:57)
--- NOTE | 2017-02-03 09:55 | PCM.PHAPRO ---
Progress Found down at home. WARFARIN Indication: AFIB Home dose 3.5mg/d Date February 01-February 02-February 03-February 04-February 05-February 06-February 07-February 08-January INR 1.17 1.2 1.58 2.14 INR change 0.03 0.38 0.56 Warf Dose 5mg 5 MG 3.5 2 a/ INR jump >0.5. Concern for overshooting on home dose. Perhaps related to 2 x 5mg doses earlier this week. p/ Two mg today, likely to resume home dose tomorrow./Sunny Hubbard S Pharm D February 03, 2017 09:55
[2017-02-03] MEDS: Piper-Tazo 3.375 Gm/50 mL D5W Minibag Plus - Q8H over 4 hrs IV SCH ×4 (10:19→17:30)
--- NOTE | 2017-02-03 11:01 | PROG NOTE ---
[address] [address] PROGRESS NOTE PATIENT: BAO SAN : 1930 MR#: [id number] ADMIT: 01/30/2017 JOB ID: [id number] DATE: 02/03/2017 INFECTIOUS DISEASE FOLLOW UP NOTE: REASON FOR FOLLOW UP: A right-sided pulmonary infiltrate in a patient who was found down at home. INTERVAL HISTORY: Today, the patient is much more awake and conversant though he still has some trouble piecing together his recent history and a bit of trouble with word finding. He states today he has no fevers, chills or sweats. He states his breathing is better though he still has some cough. He denies abdominal pain, nausea, vomiting or diarrhea. The fact he denies diarrhea is a bit problematic because the nurse's report he actually does have diarrhea. PHYSICAL EXAMINATION: Reveals an afebrile gentleman, recalling he had high spiking fevers for about two days, and since then, for the last few days has been completely afebrile. Pulse 65, respiratory rate 20, blood pressure 126/43, saturating well but on 4 L. He is awake, alert, conversational. Still has some facial discoloration secondary to being face-down in his home for an extended period. Eyes without conjunctivitis. Oral cavity negative. Lungs: Crackles at the right base. Cardiac tones without new murmur. Abdomen benign, but distended. The patient is just finishing up a fairly hearty breakfast at the time we examined him. No skin rash noted. LABORATORIES: Include white count 9000, platelets 237. He has 89% segs, but he is on steroids. Creatinine 1.3. AST and ALT both around 50. Otherwise alk phos and bilirubin are normal. Procalcitonin is 0.6 today, which is about what it has been since admission on four separate measurements. His urinalysis had no white cells. Hep C is pending. HIV is negative. Micro reveals two of four blood cultures positive for coag-negative Staph on admission. This is oxacillin sensitive coag-negative Staph. Respiratory viral PCR panel negative. MRSA PCR screen is positive. Follow up blood cultures all negative. IMAGING: Shows unimpressive bibasilar infiltrates which look to me more like atelectasis than pneumonia. IMPRESSION: This is a confusing case of an elderly gentleman who is apparently estranged from his and, therefore, live in different homes. He was found down after a period of somewhere between 12 and 48 hours. After his admission, the patient was found to have pulmonary infiltrates as well as high spiking fevers. The patient is on chronic steroids for temporal arteritis and so one consideration yesterday was whether he may have suffered an addisonian crisis related to sudden withdrawal of steroids or whether he more likely had a pulmonary infection due to aspiration. The patient was started on Zyvox and ceftriaxone on the basis of his positive PCR screen and he has improved dramatically over the past couple days. At this point, it is not completely clear to me what is going on though I think it is reasonable to treat him for a short course for aspiration pneumonia while we work up his diarrhea and replace his steroids. RECOMMENDATIONS: 1. Continues Zyvox and ceftriaxone for a few more days. 2. Will add in some Flagyl with dual intent. Flagyl will help complete the treatment for aspiration pneumonia and will also be a treatment for possible C. difficile. 3. Will check stool for C. difficile. 4. Will continue to follow this patient with you.
[2017-02-03 11:11] VITALS: BP 133/56; PULSE 63; RESP 18; O2SAT 96
[2017-02-03] MEDS: Vancomycin 125 mg Oral Capsule PO SCH ×3 (11:35→19:57)
[2017-02-03 12:30] VITALS: BP 133/56; PULSE 63; RESP 18; O2SAT 96
--- NOTE | 2017-02-03 14:12 | NUR ---
P: Weakness I: Up to chair with meals and with PT. Pt uses walker and is stronger today then yesterday. Pt is very tired. O2 at 4L/NC with sats stable. No tele. Right PICC patent. NS TKOx2 with IV meds. No stool yet to guaiac or send for c-diff. Taking bites of pureed diet. Taking pills in applesauce without difficulty. Ex is insistent that the pt will not go to a SNF and will be coming home. No c/o pain. No SOB with activity. VSS. blood sugars 171 and 247 with sliding scale insulin. Pt has some scrotal swelling. E: Stable and getting stronger S: Alert and forgetful, somewhat confused at times. Uses call light appropriately. Frequent rounding.
--- NOTE | 2017-02-03 14:23 | NUR ---
Social Work: Continued Discharge Planning D: Pt discussed in am rounds. Pt is not medically stable for discharge at this time but is anticipated to be ready in 1-2 days. EMR reviewed; current recommendation is for SNF as pt is ambulating less than 10 feet. Per MD and previous case management notes, pt's is not agreeable to SNF and wishes to take the pt home with HH. FILTER WORKER attempted to engage the pt however he is confused and disoriented. Pt's was not present at bedside. FILTER WORKER left a message for pt's requesting return phone call to discuss HH preference and discuss SNF recommendation. A: Pt who lives with his in [place]. P: Anticipate pt to discharge home with HH versus SNF once medically stable; FILTER WORKER to continue to attempt to make contact with pt's for planning purposes. ANGELA Keane
--- NOTE | 2017-02-03 15:52 | PCM.PNMED ---
Subjective Date of Service February 03, 2017 Subjective Mr. Mni Russell (Ted) is an 86 year old gentleman on Coumadin with a history of cerebellar CVA, diabetes, NSTEMI with angioplasty 2016 to the RCA, atrial fibrillation and hyperlipidemia is brought to the ED via EMS due to being found down at home. Today is hospital day 4. This morning, he reports that he feels better. He did not sleep well last night. He has a cough but does not feel like he has trouble breathing. He does not have a good appetite. He feels weak when trying to walk. He reports a loose bowel movement but does not think he has diarrhea. Exam Vital Signs Vital Sign - Last Date Time Temp Pulse Resp B/P Pulse Ox O2 Delivery O2 Flow Rate FiO2 02/03/17 12:55 Nasal Cannula 4.00 02/03/17 12:30 36.6 63 18 133/56 96 Intake and Output 02/02/17 02/02/17 02/03/17 Cumulative From/Thru 15:00 23:00 07:00 01/30/17 19:11 - 02/03/17 05:31 Intake Total 838 ml 379 ml 9428 ml Output Total 350 ml 425 ml 4375 ml Balance 488 ml -46 ml 5053 ml Intake Oral 150 ml 250 ml 400 ml IV Total 688 ml 129 ml 9028 ml Output Urine Total 350 ml 425 ml 4375 ml # Voids 1 # Bowel Movements 2 2 4 Exam General: Elderly man siting in bed with nasal cannula in place, alert, no acute distress, well-developed, well-nourished, appropriately interactive HEENT: Ecchymosis left bahai and right cheek. Normocephalic. External ears without defect. Anicteric sclerae, moist conjunctivae, mildly encrusted discharge of eyelids bilaterally, and no lid lag. Neck: Supple with full range of motion. Cardiovascular: Regular rate and rhythm with no murmurs, rubs, or gallops appreciated Pulmonary: Diffuse crackles on the right. Normal respiratory effort with no use of accessory muscles. GI: Bowel tones present. Soft, nontender, nondistended. Midline bruit. Extremities: Left shoulder TTP anteriorly. Skin: 4 cm abrasion on lateral left forearm with wound dressing in place. Trace erythema left pectoralis approximately 6 cm in diameter. Neurological: Cranial nerves grossly intact. Normally walks with a cane to ambulate. Psychiatric: Normal mood and affect. Alert, oriented to person, place, and time. Lab and Diagnostics Result Diagram: 02/03/17 0502/03/17 0520 X-Rays, CTs and MRIs PROCEDURE: CT ABDOMEN AND PELVIS WITH CONTRAST IMPRESSION: 1. Right lower lobe consolidation consistent with pneumonia given clinical history. Consider followup x-ray to demonstrate resolution. 2. 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 Approved by: Jacob Mckeon M.D. on 01/30/2017 at 21:13 PROCEDURE: X-RAY CHEST ONE VIEW, PORTABLE IMPRESSION: 1. No acute traumatic abnormality. Approved by: Jacob Mckeon M.D. on 01/30/2017 at 19:51 PROCEDURE: CT BRAIN WITHOUT CONTRAST IMPRESSION: 1. No acute intracranial abnormality. 2. Mild chronic white matter small vessel ischemic changes and moderate cerebral volume loss. 3. Mild sinus mucosal disease. Approved by: Jacob Mckeon M.D. on 01/30/2017 at 20:03 PROCEDURE: X-RAY PELVIS, ONE OR TWO VIEWS IMPRESSION: 1. No definite fracture or dislocation, with evaluation of the right femoral neck slightly limited. If clinical concern persists, recommend further evaluation with CT. Approved by: Jacob Mckeon M.D. on 01/30/2017 at 20:50 PROCEDURE: X-RAY LEFT WRIST, TWO VIEWS IMPRESSION: No fracture Approved by: Joao Obrien M.D. on 01/31/2017 at 10:06 PROCEDURE: X-RAY LEFT SHOULDER, MINIMUM TWO VIEWS IMPRESSION: No fracture. Degenerative changes as above Approved by: Joao Obrien M.D. on 01/31/2017 at 10:04 PROCEDURE: X-RAY CHEST ONE VIEW, PORTABLE IMPRESSION: Bibasilar atelectasis versus aspiration or pneumonia. Correlate clinically. Approved by: Michelle Mancia MD, PhD on 02/01/2017 at 15:04 Cardiac Echo Impressions Echocardiogram Report Interpretation Summary The left ventricle is normal in size, wall thickness, and systolic function without any focal wall motion abnormalities with the ejection fraction visually estimated to be 65-70%. Assessment of diastolic parameters indicates normal left ventricular diastolic function and normal filling pressures. There has been no significant change since the previous study. The right ventricle is normal in size and function and is unchanged compared to the previous study. The right ventricular systolic pressure is estimated at 30 mmHg assuming a right atrial pressure of 3 mm Hg. Comparison with the previous study is not possible because this was unable to be assessed on the previous study. The left atrium is mildly dilated and the right atrium is borderline dilated. Both atria have mildly increased in size since the prior echo exam. There is no significant valvular heart disease. There is trace mitral regurgitation that is less prominent compared to the previous study. Reading Physician:06: 01 PM Assessment & Plan Mr. Min Russell (Ted) is an 86 year old gentleman on Coumadin with a history of cerebellar CVA, diabetes, NSTEMI with angioplasty Aug 2016 to the RCA , atrial fibrillation and hyperlipidemia is brought to the ED via EMS due to being found down at home. Hospital day 3. Acute community acquired pneumonia, present on admission, Active. - CT Abdomen - Right lower lobe consolidation consistent with pneumonia. - Sputum cultures ordered - Flu negative - Viral PCR negative - S. Pneumo / Legionella urine antigens negative - Procalcitonin - 0.75 initially and 0.57 today - MRSA positive - Received Ceftriaxone In ED. Continued Ceftriaxone and Azithromycin. Linezolid added 01/31/2017. - Continue droplet precautions Septic shock, acute, resolved. - Patient met criteria with fever, respiratory rate, and heart rate. Patient has positive blood cultures and pneumonia. - Patient was hypotensive on 01/31/17 in the evening and remained hypotensive until receiving 3 liters of fluid - Patient initially started on ceftriaxone and azithromycin. Linezolid was added (01/31/17) for MRSA coverage. Pt started on Zosyn and PO vancomycin today to cover for aspiration pneumonia and possible C.difficile infection today.. - Infectious disease consulted and following, their time and recommendations are appreciated. - C.difficile PCR ordered Acute encephalopathy, present on admission, improving. - Most likely septic encephalopathy due to pneumonia below in combination with chronic small vessel ischemic changes as seen on CT brain. Possible encephalitis. - Pelvis x-ray negative, reviewed on admission - CT brain - no acute intra-cranial process - Blood cultures are positive for gram positive cocci, probable coagulase negative Staph but repeat blood cultures show no growth to date - Swallow study ordered and puree diet currently - Antibiotics per infectious disease - Consider a lumbar puncture if patient's mental status does not continue to improve - Physical therapy to help with pt's weakness and mobility. Consider brain MRI if any focal neurological deficits noted with pt walking. Bacteremia, acute, improved. - Blood cultures shows gram positive cocci, probable coagulase negative Staph - HIV and hepatitis C screens ordered - Repeat blood cultures show no growth to date - Echocardiogram as above did not show any signs of endocarditis Anemia, present on admission, stable. - Iron studies show low iron and low TIBC, more consistent with anemia of chronic disease and likely a dilutional component from the amount of fluids patient has received. - Hgb 9.1 initially - Type and cross. - CT abdomen as above - Stool Guaiac negative - Follow H&H and consider transfusing Acute kidney failure, present on admission, improving - Follow I/O's closely - Repeat AM labs - Discontinued Ugallpa Chronic polymyalgia rheumatica and giant cell arteritis - Patient was taking 5 mg prednisone daily mcfp. Possibly adrenal insufficiency contributing to above hypotension. - Pt started on stress dosing of steroids. Given 1 dose of methylprednisolone 125 mg IV once and then 40 mg IV every 12 hours. Started taper to prednisone 40 mg once daily. - Monitor patient's response to steroids and will adjust dose accordingly Rhabdomyolysis, present on admission, resolved. - CK 996, decreased to 192 on 02/03/17 - Initial UA yellow, protein 100, RBC 3-10, occult blood moderate - Discontinued normal saline Non insulin using type II Diabetes, present on admission, active - Swallow evaluation as above - HgbA1c 6.2%. - Hold home glipizide during hospital stay - Low dose correctional Lispro insulin scale with basal insulin Lantus 5 units once daily Possible left forearm cellulitis and left anterior chest blister, acute, improving. - Erythema and edema surrounding an abrasion on his left forearm. Pt also had a blister on his left upper chest. - Wound consulted and following. Their time and recommendations are appreciated. - Continue to monitor - Antibiotics as above Aortic dissection, present on admission, active. - CT Abdomen - Short segment dissection or penetrating atherosclerotic ulcer redemonstrated within the aorta with increased thrombus within the false lumen. Previous imaging 05/20/2008 Focal dissection versus ulcerated plaque involving the distal abdominal aorta - Monitor blood pressure Chronic Anticoagulation, Subtherapeutic, present on admission, Active. - Per records, placed on Warfarin for Afib, currently sinus rhythm - INR 1.17 initially - Continue home warfarin, pharmacy to order - Hold Clopidgrel, Per Cardiology notes 3-6 mo of Clopidogrel from aug 2016, then d/c and restart ASA with warfarin. Status post possible ground level fall - Likely related to encephalopathy as above - Pt was found down on ground - CT brain without contrast did not show any intracranial hemorrhage - Chest, pelvic, left shoulder and left wrist x-rays did not show any fractures - Continue to monitor - Orthostatic vital signs when pt is able to stand Low phosphorus level, acute, present on admission, resolved. -Phosphorous level 1.1 but increased to 2.7 -Replenished with IV phosphorous Other chronic conditions: Gout - Hold home allopurinol due to possible acute kidney injury as above BPH - Hold home Flomax and monitor urine output and blood pressure for now and resume if blood pressure stable Chronic Atrial fibrillation - currently sinus rhythm - Hold home metoprolol and continue when appropriate Depression - Continue citalopram 10 mg once daily Acetaminophen for mild pain when necessary. Bowel regimen Senna and MiraLAX scheduled and PRN. Zofran when necessary for nausea and vomiting. SCDs in place. Pain Evaluation: Adequate Pain Control VTE Prophylaxis: SCDs VTE Mechanical Devices: Intermittant Pneumatic CD Resuscitation Status: CPR: Attempt Resuscitation Attending Statement The patient was seen and examined together with Dr. Castañeda on 02/03/2017 and I agree with the history, exam and plan as outlined in the note above. . Linda Castañeda DO February 03, 2017 15:52 Harry Negron MD February 04, 2017 07:54
[2017-02-03 16:12] VITALS: BP 114/48; PULSE 80; RESP 18; O2SAT 100
--- NOTE | 2017-02-03 18:37 | NUR ---
Assumed care Assumed care of Pt from Sarah Rodríguez RN at ~1430 this afternoon, Pt sleeping comfortably on 4L O2 via nasal cannula with not s/s of resp distress/pain. Addendum: 02/03/17 at 1933 by JELANI PEARSON RN Pt's dickson catheter removed at ~1745, Pt in brief, denies bladder discomfort, oncflorencia WAN RN made aware.
[2017-02-03 19:52] VITALS: BP 121/47; PULSE 68; RESP 14; O2SAT 100
[2017-02-03] MEDS: Insulin GLARgine 100 Unit/mL Syringe SUBQ SCH (19:57)
[2017-02-03] MEDS ORDERED: predniSONE 20 mg Tablet PO SCH (20:30)
[2017-02-04] MEDS: Piper-Tazo 3.375 Gm/50 mL D5W Minibag Plus - Q8H over 4 hrs IV SCH ×8 (00:48→23:44)
[2017-02-04 01:11] LABS: BASOPHILS % (AUTO) 0.1 % (0-3); EOSINOPHILS % (AUTO) 0 % (0-5); MONOCYTES % (AUTO) 7.2 % (4-12); Mean Corpuscular Hemoglobin 21.5 pg (27.0-35.0); Mean Corpuscular Volume 74.8 fL (81-100); NEUTROPHILS % (AUTO) 83.3 % (40-74); Platelet Count 269 bil/L (150-400)
--- NOTE | 2017-02-04 01:32 | NUR ---
MENTATION Pt had an uneventful night, no pain, VVS. Pt slightly confused but able to answer questions appropriately. Pt cooperative with care, but still very weak throughout the night.
[2017-02-04 03:00] LABS: INR 2.56 ratio
[2017-02-04 03:16] VITALS: BP 138/55; PULSE 71; O2SAT 96
[2017-02-04] MEDS: Vancomycin 125 mg Oral Capsule PO SCH (05:56)
[2017-02-04] MEDS: Insulin LISPRO 300 Unit/3 mL Inj SUBQ SCH ×4 (08:00→20:38)
[2017-02-04] MEDS ORDERED: predniSONE 20 mg Tablet PO SCH (08:30)
[2017-02-04 08:55] VITALS: BP 157/64; PULSE 75; RESP 18; O2SAT 96
[2017-02-04] MEDS: Azithromycin Inj 500 MG in Dextrose 5% w/Vial Mate 250 ML IV SCH (09:07)
[2017-02-04] MEDS: Linezolid Inj 600 MG in IV Premix 1 EACH IV SCH ×2 (09:10→20:35)
--- NOTE | 2017-02-04 10:18 | DRSVH ---
PROCEDURE: X-RAY CHEST ONE VIEW, PORTABLE ([id number]) INDICATIONS: dyspnea TECHNIQUE: One view of the chest was acquired. COMPARISON: [facility], CR, XR CHEST 1VW (PORTABLE), 02/01/2017, 4:41. FINDINGS: Surgical changes and devices: Cholecystectomy clips. Right PICC present projected over the mid super ior vena cava Lungs and pleura: No pleural effusions or pneumothorax. Bibasilar airspace opacity present, right g reater than left and there is chronic elevation of the right hemidiaphragm. Mediastinum: Mediastinal contours appear normal. Heart size is normal. Bones and chest wall: No suspicious bony lesions. Overlying soft tissues appear unremarkable. IMPRESSION: 1. Placement right PICC and persistent biasilar patchy consolidative opacity, right greater than left suggestive of pneumonia. Dictated by: Cleveland Martinez [facility] Interpreted: Joao Obrien MD on 02/04/2017 at 10:17 Transcribed by: ROYER on 02/04/2017 at 10:18 Approved by: Joao Obrien M.D. on 02/04/2017 at 14:28
[2017-02-04] MEDS ORDERED: Iron Sucrose Inj 200 MG in 0.9% Sodium Chloride 100 ML IV ONE (10:20)
--- NOTE | 2017-02-04 11:08 | NUR ---
NUTRITION FOLLOW-UP: Assess: 86 YO M admitted with sepsis, pneumonia, bacteremia, hypotension, JESSE and aortic dissection after being found down at home. Rhabdo, sepsis resolved. Acute encephalopathy, JESSE improved somewhat. He is not tolerating his pureed diet well, bites - 25% trays. PMHX:Cerebellar CVA, type 2 DM, A-fib, gout, polymyalgia rheumatica, GERD, HLD. DIET: Pureed, thin liquids, per ST order. PO intake poor, bites - 25% trays. LABS: BUN 29, Glu 178, Ca 7.6, AST 167, ALT 126, Alb 2.8. MEDICATIONS: Reviewed. Coumadin, insulin, prednisone. GI: Loose BM (02/03). SKIN: Left volar forearm presents with open area probably related to a blister formation, measures 3 cm x 2 cm x 0.1 cm, cleaned and covered with xeroform. Patient also has a large blister at his left pectoral area into his axilla, which was drained, ANTHROPOMETRICS: Wt 79.3 kg, BMI 26.0 kg/m2, Admit wt: 74.6 kg. ESTIMATED NEEDS: Calories: 8677-5489 kcal/day (25-30 kcal/kg BW) Protein: 64-120 g/day (0.8-1.5 g/kg BW) NUTRITION DIAGNOSIS: 1) Inadequate oral intake related to decreased ability to consume sufficient energy as evidenced by poor PO intake - PERSISTS. INTERVENTION: 1) Diet advancement per speech therapy. 2) Will add Glucerna to all trays. MONITOR/EVALUATE: PO intake, diet advance/tolerance, labs, GI/nutrition status. Follow per high nutrition risk guidelines.
--- NOTE | 2017-02-04 11:18 | PROG NOTE ---
[address] [address] PROGRESS NOTE PATIENT: BAO SAN : 1930 MR#: [id number] ADMIT: 01/30/2017 JOB ID: [id number] DATE: 02/04/2017 INFECTIOUS DISEASE FOLLOW UP NOTE: REASON FOR FOLLOWUP: Right greater than left pulmonary infiltrate possibly secondary to aspiration pneumonia. INTERVAL HISTORY: The patient reports he has no fevers, chills or sweats. This morning he is still having a cough and some respiratory difficulty and using nasal oxygen. He denies abdominal pain, but it is noted that he does have episodic loose bowel movements. No abdominal pain. No . No nausea, vomiting, and no skin rash. PHYSICAL EXAMINATION: Reveals an afebrile gentleman, temperature 36.6. He was very febrile the first 2-1/2 days in the hospital and has now been 2-1/2 days completely afebrile. Temperature 36.6, as mentioned. Pulse 71, respiratory rate 14-18, blood pressure 138/55. He is saturating well but on 4 L. Even across the room, one can hear the upper airway rattles on this patient. Though he does not appear to be in any respiratory distress really. Mental status is clear. Eyes without conjunctivitis. The oral cavity without thrush. Lungs with lots of transmitted upper airway sounds and rales at the right base. Cardiac tones: Regular rate and rhythm. The abdomen is distended but soft and relatively nontender. He does not have significant peripheral edema or evidence of cellulitis. LABORATORIES: Include white count 7000, platelet count 269. Creatinine is 1.19 and declining. Liver function tests continue to rise. AST is 167, ALT 126. Alk phos normal at 67. This is a cholestatic hepatitis. Procalcitonin is falling, highest though was 0.8 and now it is 0.4 so it is a little hard to know how significant all that is. Urinalysis did not have white cells. Hep C is pending. C difficile was done twice yesterday for unclear reasons. Both are negative. Blood cultures negative. Respiratory viral PCR negative. A single blood culture back on the day of admission, now five days ago, yielded 1/4 for coag-negative staph, which was a contaminant. MRSA screen of the nares was positive. IMAGING: Includes a chest x-ray last done now three days ago shows bibasilar atelectasis versus pneumonia. IMPRESSION: Confusing case of an elderly gentleman who was found down at home after a period of half a day to two days on the ground. The patient had pulmonary infiltrates with fevers when he came in and has improved considerably. It is also notable that he is on chronic steroids for temporal arteritis which were stopped and now restarted so it is unclear if his problem was mainly a steroid withdrawal, aspiration pneumonia or something else. RECOMMENDATIONS: 1. Will stop the azithromycin tomorrow after five days of therapy. 2. We are continuing with Zyvox but this could be changed to oral at any time. Anticipated course of Zyvox would be 10 days for possible MRSA pneumonia. 3. Will continue with Zosyn in the short term as well. 4. The patient remains on prednisone as part of his steroid replacement program. 5. No oral vanco as C. difficile negative x2. 6. Repeat chest x-ray would be reasonable at this point. 7. Ultrasound of the right upper quadrant will be indicated if his liver function tests continue to climb.
--- NOTE | 2017-02-04 14:31 | NUR ---
Social Work: Readiness for Discharge D: Pt discussed in am rounds. Pt is not medically stable for discharge at this time but is anticipated to be ready to go in another day. Per MD and team at rounds, recommendation still remains for skilled rehab. The pt's has been resistant to the idea of SNF. FINANCE BUSINESS PARTNER met with pt and at bedside. Pt's states that the pt has a history at [facility] and that experience is why she is resistant to rehab. FINANCE BUSINESS PARTNER reviewed SNF CHOICE LIST and [employer] SNF ratings with the pt's . She is willing to consider taking a tour of [facility] as they have the highest star rating and is close to the pt's PCP. [facility] has provided referral to [facility] PPW on Chart PASSR Completed A: Pt who would qualify for skilled rehab for continued strengthening and functional mobility improvement. P: [facility]; [facility] is reviewing. FINANCE BUSINESS PARTNER to follow up with pt's after she tours facility. Pt to either d/c to SNF versus home with home health. ANGELA Keane
--- NOTE | 2017-02-04 14:36 | NUR ---
Gave access and faxed facehseet to [facility] per [employer]
[2017-02-04 15:16] VITALS: PULSE 63; RESP 24; O2SAT 93
[2017-02-04 16:31] VITALS: BP 136/66; PULSE 64; RESP 24; O2SAT 93
--- NOTE | 2017-02-04 19:27 | PCM.PNMED ---
Subjective Date of Service February 04, 2017 Subjective Mr. Min Russell (Ted) is an 86 year old gentleman on Coumadin with a history of cerebellar CVA, diabetes, NSTEMI with angioplasty 2016 to the RCA, atrial fibrillation and hyperlipidemia is brought to the ED via EMS due to being found down at home. Today is hospital day 5. He reports increased fatigue today and lightheadedness with positional changes. He also continues to have a cough with some trouble breathing. He does not have any abdominal pain, nausea, or vomiting. Exam Vital Signs Vital Sign - Last Date Time Temp Pulse Resp B/P Pulse Ox O2 Delivery O2 Flow Rate FiO2 02/04/17 05:29 Supplement Oxygen 02/04/17 03:16 71 138/55 96 4.00 02/03/17 19:52 36.6 14 Intake and Output 02/03/17 02/03/17 02/04/17 Cumulative From/Thru 15:00 23:00 07:00 01/30/17 19:11 - 02/04/17 06:21 Intake Total 1085 ml 450 ml 80148 ml Output Total 600 ml 350 ml 5325 ml Balance 485 ml 100 ml 5638 ml Intake Oral 240 ml 100 ml 740 ml IV Total 845 ml 350 ml 42111 ml Output Urine Total 600 ml 350 ml 5325 ml # Voids 1 # Bowel Movements 1 3 8 Exam General: Elderly man siting in bed with nasal cannula in place, alert, no acute distress, well-developed, well-nourished, appropriately interactive HEENT: Ecchymosis left christian and right cheek. Normocephalic. External ears without defect. Anicteric sclerae, moist conjunctivae, mildly encrusted discharge of eyelids bilaterally, and no lid lag. Neck: Supple with full range of motion. Cardiovascular: Regular rate and rhythm with no murmurs, rubs, or gallops appreciated Pulmonary: Upper airway congestion. Diffuse crackles on the right and crackles at left base. Normal respiratory effort with no use of accessory muscles. GI: Bowel tones present. Soft, nontender, nondistended. Midline bruit. Skin: Abrasion on lateral left forearm with wound dressing in place. Trace erythema left pectoralis approximately 6 cm in diameter that is stable. Neurological: Cranial nerves grossly intact. Normally walks with a cane to ambulate. Psychiatric: Normal mood and affect. Alert, oriented to person, place, and time. IVs and Medications Medications Reviewed: Medications were reviewed in detail Lab and Diagnostics Result Diagram: 02/04/17 01002/04/17 010 X-Rays, CTs and MRIs PROCEDURE: CT ABDOMEN AND PELVIS WITH CONTRAST IMPRESSION: 1. Right lower lobe consolidation consistent with pneumonia given clinical history. Consider followup x-ray to demonstrate resolution. 2. 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 Approved by: Jacob Mckeon M.D. on 01/30/2017 at 21:13 PROCEDURE: X-RAY CHEST ONE VIEW, PORTABLE IMPRESSION: 1. No acute traumatic abnormality. Approved by: Jacob Mckeon M.D. on 01/30/2017 at 19:51 PROCEDURE: CT BRAIN WITHOUT CONTRAST IMPRESSION: 1. No acute intracranial abnormality. 2. Mild chronic white matter small vessel ischemic changes and moderate cerebral volume loss. 3. Mild sinus mucosal disease. Approved by: Jacob Mckeon M.D. on 01/30/2017 at 20:03 PROCEDURE: X-RAY PELVIS, ONE OR TWO VIEWS IMPRESSION: 1. No definite fracture or dislocation, with evaluation of the right femoral neck slightly limited. If clinical concern persists, recommend further evaluation with CT. Approved by: Jacob Mckeon M.D. on 01/30/2017 at 20:50 PROCEDURE: X-RAY LEFT WRIST, TWO VIEWS IMPRESSION: No fracture Approved by: Joao Obrien M.D. on 01/31/2017 at 10:06 PROCEDURE: X-RAY LEFT SHOULDER, MINIMUM TWO VIEWS IMPRESSION: No fracture. Degenerative changes as above Approved by: Joao Obrien M.D. on 01/31/2017 at 10:04 PROCEDURE: X-RAY CHEST ONE VIEW, PORTABLE IMPRESSION: Bibasilar atelectasis versus aspiration or pneumonia. Correlate clinically. Approved by: Michelle Mancia MD, PhD on 02/01/2017 at 15:04 PROCEDURE: X-RAY CHEST ONE VIEW, PORTABLE IMPRESSION: 1. Placement right PICC and persistent biasilar patchy consolidative opacity, right greater than left suggestive of pneumonia. Approved by: Joao Obrien M.D. on 02/04/2017 at 14:28 Cardiac Echo Impressions Echocardiogram Report Interpretation Summary The left ventricle is normal in size, wall thickness, and systolic function without any focal wall motion abnormalities with the ejection fraction visually estimated to be 65-70%. Assessment of diastolic parameters indicates normal left ventricular diastolic function and normal filling pressures. There has been no significant change since the previous study. The right ventricle is normal in size and function and is unchanged compared to the previous study. The right ventricular systolic pressure is estimated at 30 mmHg assuming a right atrial pressure of 3 mm Hg. Comparison with the previous study is not possible because this was unable to be assessed on the previous study. The left atrium is mildly dilated and the right atrium is borderline dilated. Both atria have mildly increased in size since the prior echo exam. There is no significant valvular heart disease. There is trace mitral regurgitation that is less prominent compared to the previous study. Reading Physician:06: 01 PM Assessment & Plan Mr. Min Russell (Ted) is an 86 year old gentleman on Coumadin with a history of cerebellar CVA, diabetes, NSTEMI with angioplasty Aug 2016 to the RCA , atrial fibrillation and hyperlipidemia is brought to the ED via EMS due to being found down at home. Hospital day 3. Acute community acquired pneumonia or possible aspiration pneumonia, present on admission, Active. - CT Abdomen - Right lower lobe consolidation consistent with pneumonia. - Repeat CXR did not show significant change today - MRSA positive - Sputum cultures ordered - Flu negative - Viral PCR negative - S. Pneumo / Legionella urine antigens negative - Procalcitonin - 0.75 initially and 0.38 today - Swallow study ordered and puree diet currently - Received Ceftriaxone In ED. Discontinued ceftriaxone 02/03/17 and azithromycin on 02/04/17. Linezolid added 01/31/2017 and will continue for total of 10 days. IV Zosyn added 02/03/17 for aspiration pneumonia coverage - Continue droplet precautions - Started incentive spirometer and acapella Acute encephalopathy, present on admission, improving. - Most likely septic encephalopathy due to pneumonia below in combination with chronic small vessel ischemic changes as seen on CT brain. Possible encephalitis. - Pelvis x-ray negative, reviewed on admission - CT brain - no acute intra-cranial process - Blood cultures are positive for gram positive cocci, probable coagulase negative Staph but repeat blood cultures show no growth to date - Antibiotics per infectious disease - Physical therapy to help with pt's weakness and mobility. Consider brain MRI if any focal neurological deficits noted with pt walking. Iron deficiency anemia, present on admission, stable. - Iron studies show low iron and low TIBC. - Hgb 9.1 initially - Typed and crossed. - CT abdomen as above - Stool Guaiac negative - Follow H&H - IV iron infusion 200 mg once today - Start PO ferrous 325 mg once daily with vitamin C 500 mg once daily on - Scheduled Senna to prevent constipation from iron supplement Transaminitis, acute, active. - AST 167, ALT 126 - Alk phos within normal limits - Likely toxic hepatitis - Pt does not have abdominal pain or abdominal tenderness on exam - Discontinued acetaminophen - Possibly secondary to Zosyn - Discuss with pharmacy other possible medications that could contribute - Continue to monitor - Consider abdominal ultrasound if continued concern Acute kidney failure, present on admission, improving - Follow I/O's closely - Repeat AM labs - Discontinued Guallpa Septic shock, acute, resolved. - Patient met criteria with fever, respiratory rate, and heart rate. Patient has positive blood cultures and pneumonia. - Patient was hypotensive on 01/31/17 in the evening and remained hypotensive until receiving 3 liters of fluid - Patient initially started on ceftriaxone and azithromycin both now discontinued. Linezolid was added (01/31/17) for MRSA coverage. Pt started on Zosyn and PO vancomycin today to cover for aspiration pneumonia and possible C.difficile infection on 02/03/17. - Infectious disease consulted and following, their time and recommendations are appreciated. - Discontinued PO vancomycin because C.diff was negative times two Status post possible ground level fall - Likely related to encephalopathy as above - Pt was found down on ground - CT brain without contrast did not show any intracranial hemorrhage - Chest, pelvic, left shoulder and left wrist x-rays did not show any fractures - Continue to monitor - Orthostatic vital signs to assess for possible orthostatic hypotension Chronic polymyalgia rheumatica and giant cell arteritis - Patient was taking 5 mg prednisone daily technician terminal and repeater. Possibly adrenal insufficiency contributing to above hypotension. - Pt started on stress dosing of steroids. Given 1 dose of methylprednisolone 125 mg IV once and then 40 mg IV every 12 hours. Started taper to prednisone 40 mg once daily, then prednisone 20 mg once daily. - Monitor patient's response to steroids and will adjust dose accordingly Bacteremia, acute, improved. - Blood cultures shows gram positive cocci, probable coagulase negative Staph - HIV and hepatitis C screens ordered - Repeat blood cultures show no growth to date - Echocardiogram as above did not show any signs of endocarditis Rhabdomyolysis, present on admission, resolved. - CK 996, decreased to 192 on 02/03/17 - Initial UA yellow, protein 100, RBC 3-10, occult blood moderate - Discontinued normal saline Non insulin using type II Diabetes, present on admission, active - Swallow evaluation as above - HgbA1c 6.2%. - Hold home glipizide during hospital stay - Low dose correctional Lispro insulin scale with basal insulin Lantus 5 units once daily Possible left forearm cellulitis and left anterior chest blister, acute, improving. - Erythema and edema surrounding an abrasion on his left forearm. Pt also had a blister on his left upper chest. - Wound consulted and following. Their time and recommendations are appreciated. - Continue to monitor - Antibiotics as above Aortic dissection, present on admission, active. - CT Abdomen - Short segment dissection or penetrating atherosclerotic ulcer redemonstrated within the aorta with increased thrombus within the false lumen. Previous imaging 05/20/2008 Focal dissection versus ulcerated plaque involving the distal abdominal aorta - Monitor blood pressure Chronic Anticoagulation, Subtherapeutic, present on admission, Active. - Per records, placed on Warfarin for Afib, currently sinus rhythm - INR 1.17 initially - Continue home warfarin, pharmacy to order - Hold Clopidgrel, Per Cardiology notes 3-6 mo of Clopidogrel from aug 2016, then d/c and restart ASA with warfarin. Low phosphorus level, acute, present on admission, resolved. -Phosphorous level 1.1 but increased to 2.7 -Replenished with IV phosphorous Other chronic conditions: Gout - Hold home allopurinol due to possible acute kidney injury as above BPH - Hold home Flomax and monitor urine output and blood pressure for now and resume if blood pressure stable Chronic Atrial fibrillation - currently sinus rhythm - Hold home metoprolol and continue when appropriate Depression - Continue citalopram 10 mg once daily Acetaminophen for mild pain when necessary. Bowel regimen Senna and MiraLAX scheduled and PRN. Zofran when necessary for nausea and vomiting. SCDs in place. Disposition: Discharge to SNF for physical therapy in the next 1-3 days pending continued improvement. Pain Evaluation: Adequate Pain Control VTE Prophylaxis: SCDs VTE Mechanical Devices: Intermittant Pneumatic CD Resuscitation Status: CPR: Attempt Resuscitation Attending Statement The patient was seen and examined together with Dr. Castañeda on 02/04/2017 and I agree with the history, exam and plan as outlined in the note above. . Linda Castañeda DO February 04, 2017 07:17 Harry Negron MD February 05, 2017 16:44
[2017-02-04 20:30] VITALS: BP 143/53; PULSE 63; RESP 20; O2SAT 95
[2017-02-04] MEDS: Insulin GLARgine 100 Unit/mL Syringe SUBQ SCH (20:38)
[2017-02-05] VITALS (11 sets, daily range): BP systolic 143–173; BP diastolic 60–75; PULSE 58–69; RESP 18–21; O2SAT 89–96
--- NOTE | 2017-02-05 01:32 | NUR ---
REST Pt had a good night sleep, uneventful night. Pt extremely weak and needing 2PA @ times. VSS, no pain, no issues noted at this time.
[2017-02-05 02:30] LABS: INR 3.36 ratio
[2017-02-05] MEDS: Insulin LISPRO 300 Unit/3 mL Inj SUBQ SCH ×4 (08:00→20:53)
--- NOTE | 2017-02-05 08:06 | PCM.PHAPRO ---
Progress Found down at home. Date February 01-February 02-February 03-February 04-February 05-January INR 1.17 1.2 1.58 2.14 2.56 3.36 INR change 0.03 0.38 0.56 0.42 0.8 Warf Dose 5mg 5 MG 3.5 2 1 HOLD Andrew Torres Pharm.D February 05, 2017 08:06
[2017-02-05] MEDS: Ascorbic Acid 500 mg Tablet PO SCH (08:12)
[2017-02-05] MEDS: Piper-Tazo 3.375 Gm/50 mL D5W Minibag Plus - Q8H over 4 hrs IV SCH ×6 (08:12→23:53)
[2017-02-05] MEDS: Linezolid Inj 600 MG in IV Premix 1 EACH IV SCH ×2 (08:13→19:49)
[2017-02-05] MEDS: predniSONE 20 mg Tablet PO SCH (08:22)
--- NOTE | 2017-02-05 09:05 | NUR ---
[facility] Llanos to follow.
[2017-02-05] MEDS ORDERED: diphenhydrAMINE 25 mg Capsule PO ONE (10:25)
[2017-02-05] MEDS ORDERED: Furosemide 10 mg/mL 2 mL Inj IV ONE ×2 (10:25→18:50)
[2017-02-05] MEDS: 0.9% Sodium Chloride 250 ML IV SCH (11:57)
--- NOTE | 2017-02-05 14:03 | PCM.PNMED ---
Subjective Date of Service February 05, 2017 Subjective Mr. Min Russell (Ted) is an 86 year old gentleman on Coumadin with a history of cerebellar CVA, diabetes, NSTEMI with angioplasty 2016 to the RCA, atrial fibrillation and hyperlipidemia is brought to the ED via EMS due to being found down at home. Today is hospital day 6. He continues to feel fatigued and generalized weakness. He has some lightheadedness with walking. He does not have chest pain or abdominal pain. He continues to have a productive cough. Exam Vital Signs Vital Sign - Last Date Time Temp Pulse Resp B/P Pulse Ox O2 Delivery O2 Flow Rate FiO2 02/05/17 13:03 36.9 68 20 152/64 02/05/17 12:53 96 Nasal Cannula 4.00 Intake and Output 02/04/17 02/04/17 02/05/17 Cumulative From/Thru 15:00 23:00 07:00 01/30/17 19:11 - 02/05/17 06:38 Intake Total 250 ml 708 ml 520 ml 70936 ml Output Total 275 ml 250 ml 5850 ml Balance 250 ml 433 ml 270 ml 6591 ml Intake Oral 100 ml 60 ml 900 ml IV Total 250 ml 608 ml 460 ml 16767 ml Output Urine Total 275 ml 250 ml 5850 ml # Voids 3 2 6 # Bowel Movements 2 1 11 Exam General: Elderly man siting in bed with nasal cannula in place, alert, no acute distress, well-developed, well-nourished, appropriately interactive HEENT: Ecchymosis left yazdanism and right cheek that are improving. Normocephalic. External ears without defect. Anicteric sclerae, moist conjunctivae, minimally encrusted discharge of eyelids bilaterally, and no lid lag. Neck: Supple with full range of motion. Cardiovascular: Regular rate and rhythm with no murmurs, rubs, or gallops appreciated Pulmonary: Upper airway congestion. Diffuse crackles bilaterally. Normal respiratory effort with no use of accessory muscles. GI: Bowel tones present. Soft, nontender, nondistended. Midline bruit. Skin: Abrasion on lateral left forearm with wound dressing in place. Trace round area of erythema without warmth on left pectoralis approximately 6 cm in diameter that is stable. Neurological: Cranial nerves grossly intact. Normally walks with a cane to ambulate. Psychiatric: Normal mood and affect. Alert, oriented to person, place, and time. IVs and Medications Medications Reviewed: Medications were reviewed in detail Lab and Diagnostics Result Diagram: 02/05/17 [id number] X-Rays, CTs and MRIs PROCEDURE: CT ABDOMEN AND PELVIS WITH CONTRAST IMPRESSION: 1. Right lower lobe consolidation consistent with pneumonia given clinical history. Consider followup x-ray to demonstrate resolution. 2. 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 Approved by: Jacob Mckeon M.D. on 01/30/2017 at 21:13 PROCEDURE: X-RAY CHEST ONE VIEW, PORTABLE IMPRESSION: 1. No acute traumatic abnormality. Approved by: Jacob Mckeon M.D. on 01/30/2017 at 19:51 PROCEDURE: CT BRAIN WITHOUT CONTRAST IMPRESSION: 1. No acute intracranial abnormality. 2. Mild chronic white matter small vessel ischemic changes and moderate cerebral volume loss. 3. Mild sinus mucosal disease. Approved by: Jacob Mckeon M.D. on 01/30/2017 at 20:03 PROCEDURE: X-RAY PELVIS, ONE OR TWO VIEWS IMPRESSION: 1. No definite fracture or dislocation, with evaluation of the right femoral neck slightly limited. If clinical concern persists, recommend further evaluation with CT. Approved by: Jacob Mckeon M.D. on 01/30/2017 at 20:50 PROCEDURE: X-RAY LEFT WRIST, TWO VIEWS IMPRESSION: No fracture Approved by: Joao Obrien M.D. on 01/31/2017 at 10:06 PROCEDURE: X-RAY LEFT SHOULDER, MINIMUM TWO VIEWS IMPRESSION: No fracture. Degenerative changes as above Approved by: Joao Obrien M.D. on 01/31/2017 at 10:04 PROCEDURE: X-RAY CHEST ONE VIEW, PORTABLE IMPRESSION: Bibasilar atelectasis versus aspiration or pneumonia. Correlate clinically. Approved by: Michelle Mancia MD, PhD on 02/01/2017 at 15:04 PROCEDURE: X-RAY CHEST ONE VIEW, PORTABLE IMPRESSION: 1. Placement right PICC and persistent biasilar patchy consolidative opacity, right greater than left suggestive of pneumonia. Approved by: Joao Obrien M.D. on 02/04/2017 at 14:28 Cardiac Echo Impressions Echocardiogram Report Interpretation Summary The left ventricle is normal in size, wall thickness, and systolic function without any focal wall motion abnormalities with the ejection fraction visually estimated to be 65-70%. Assessment of diastolic parameters indicates normal left ventricular diastolic function and normal filling pressures. There has been no significant change since the previous study. The right ventricle is normal in size and function and is unchanged compared to the previous study. The right ventricular systolic pressure is estimated at 30 mmHg assuming a right atrial pressure of 3 mm Hg. Comparison with the previous study is not possible because this was unable to be assessed on the previous study. The left atrium is mildly dilated and the right atrium is borderline dilated. Both atria have mildly increased in size since the prior echo exam. There is no significant valvular heart disease. There is trace mitral regurgitation that is less prominent compared to the previous study. Reading Physician:06: 01 PM Assessment & Plan Mr. Min Russell (Ted) is an 86 year old gentleman on Coumadin with a history of cerebellar CVA, diabetes, NSTEMI with angioplasty Aug 2016 to the RCA , atrial fibrillation and hyperlipidemia is brought to the ED via EMS due to being found down at home. Hospital day 3. Acute community acquired pneumonia or possible aspiration pneumonia, present on admission, Active. - CT Abdomen - Right lower lobe consolidation consistent with pneumonia. - Repeat CXR did not show significant change today - MRSA positive - Sputum cultures ordered - Flu negative - Viral PCR negative - S. Pneumo / Legionella urine antigens negative - Procalcitonin - 0.75 initially and 0.38 today - Swallow study ordered and puree diet currently - Received Ceftriaxone In ED. Discontinued ceftriaxone on 02/03/17 and azithromycin on 02/04/17. Linezolid added 01/31/2017 and will continue for total of 10 days. IV Zosyn added on 02/03/17 for aspiration pneumonia coverage. Linezolid IV for MRSA coverage on 01/31/17. - Continue droplet precautions - Continue incentive spirometer and acapella Iron deficiency anemia, present on admission, stable. - Iron studies show low iron and low TIBC. - Hgb 9.1 initially - Typed and crossed. - CT abdomen as above - Stool Guaiac negative - Follow H&H - IV iron infusion 200 mg once today - Start PO ferrous 325 mg once daily with vitamin C 500 mg once daily on - Scheduled Senna to prevent constipation from iron supplement - Blood transfusion of two units of PRBCs. Consent obtained from patient and verbal consent from patient's obtained over the phone at 12:31 PM on 2016. - Recheck hemoglobin and hematocrit today after transfusion and continue to monitor Transaminitis, acute, improving. - AST 167, ALT 126 on 02/04/17, AST 79, ALT 131 today - Alk phos within normal limits - Patient had a previous cholecystectomy - Likely toxic hepatitis - Possibly secondary to Zosyn - Pt does not have abdominal pain or abdominal tenderness on exam - Discuss with pharmacy other possible medications that could contribute - Hold acetaminophen - Continue to monitor - Consider abdominal ultrasound if continued concern or no improvement Orthostatic hypotension - Orthostatic vital signs showed BP taken in sitting 133/56, standing 99/46 during physical therapy on 02/05/17, which is at least a 20 mmHg fall in systolic pressure and at least a 10 mmHg fall in diastolic pressure - Continue to hold beta td at this time - Continue to encourage PO intake with supplements and snacks Status post possible ground level fall - Pt was found down on ground - Likely related to septic encephalopathy and orthostatic hypotension - CT brain without contrast did not show any intracranial hemorrhage - Chest, pelvic, left shoulder and left wrist x-rays did not show any fractures - Continue to monitor Acute encephalopathy, present on admission, improved. - Most likely septic encephalopathy due to pneumonia below in combination with chronic small vessel ischemic changes as seen on CT brain. Possible encephalitis. - Pelvis x-ray negative, reviewed on admission - CT brain - no acute intra-cranial process - Blood cultures are positive for gram positive cocci, probable coagulase negative Staph but repeat blood cultures show no growth to date - Antibiotics per infectious disease - Physical therapy to help with pt's weakness and mobility. Consider brain MRI if any focal neurological deficits noted with pt walking. - Continue to monitor Acute kidney failure, present on admission, resolved. - Cr 1.38 on admission, 1.01 today - Follow I/O's closely - Repeat AM labs - Discontinued [place]pa Septic shock, acute, resolved. - Patient met criteria with fever, respiratory rate, and heart rate. Patient has positive blood cultures and pneumonia. - Patient was hypotensive on 01/31/17 in the evening and remained hypotensive until receiving 3 liters of fluid - Patient initially started on ceftriaxone and azithromycin both now discontinued. Linezolid was added (01/31/17) for MRSA coverage. Pt started on Zosyn and PO vancomycin today to cover for aspiration pneumonia and possible C.difficile infection on 02/03/17. - Infectious disease consulted and following, their time and recommendations are appreciated. 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 Possibly adrenal insufficiency contributing to above hypotension. - Pt started on stress dosing of steroids. Given 1 dose of methylprednisolone 125 mg IV once on 01/31/17 and then 40 mg IV every 12 hours. Started taper to prednisone 40 mg once daily, then prednisone 20 mg once daily on 02/05/17. 02/05 would be day 5 of a prednisone burst, consider decreasing to patient's baseline prednisone of 5 mg once daily tomorrow - Monitor patient's response to steroids and will adjust dose accordingly Bacteremia, acute, resolved. - Blood cultures showed gram positive cocci, probable coagulase negative Staph , which was likely a contaminant - HIV and hepatitis C screens ordered - Repeat blood cultures show no growth to date - Echocardiogram as above did not show any signs of endocarditis Rhabdomyolysis, present on admission, resolved. - CK 996, decreased to 192 on 02/03/17 - Initial UA yellow, protein 100, RBC 3-10, occult blood moderate - Discontinued normal saline Non insulin using type II Diabetes, present on admission, active - Swallow evaluation as above - HgbA1c 6.2%. - Hold home glipizide during hospital stay - Low dose correctional Lispro insulin scale with basal insulin Lantus 5 units once daily Possible left forearm cellulitis and left anterior chest blister, acute, improving. - Erythema and edema surrounding an abrasion on his left forearm. Pt also had a blister on his left upper chest. - Wound consulted and following. Their time and recommendations are appreciated. - Continue to monitor - Antibiotics as above Aortic dissection, present on admission, active. - CT Abdomen - Short segment dissection or penetrating atherosclerotic ulcer redemonstrated within the aorta with increased thrombus within the false lumen. Previous imaging 05/20/2008 Focal dissection versus ulcerated plaque involving the distal abdominal aorta - Monitor blood pressure Chronic anticoagulation, Subtherapeutic, present on admission, Active. - Per records, placed on Warfarin for Afib, currently sinus rhythm - INR 1.17 initially - Continue home warfarin, pharmacy to order - Hold Clopidgrel, Per Cardiology notes 3-6 mo of Clopidogrel from aug 2016, then d/c and restart ASA with warfarin. Low phosphorus level, acute, present on admission, resolved. - Phosphorous level 1.1 but increased to 2.7 - Replenished with IV phosphorous Other chronic conditions: Coronary artery disease - NSTEMI in 08/2016 with 1 drug eluting stent to the RCA - Pt was discharged on atorvastatin, metoprolol, and clopidogrel - Hold Clopidgrel, Per Cardiology notes 3-6 mo of Clopidogrel from aug 2016, then d/c and restart ASA with warfarin. - Hold metoprolol as heart rate is in the 60s - Consider starting an ACEI/ARB now that kidney function has returned to normal Gout - Hold home allopurinol due to possible acute kidney injury as above BPH - Hold home Flomax and monitor urine output and blood pressure for now and resume if blood pressure stable Chronic Atrial fibrillation - currently sinus rhythm - Hold home metoprolol and continue when appropriate Depression - Continue citalopram 10 mg once daily Acetaminophen for mild pain when necessary. Bowel regimen Senna and MiraLAX scheduled and PRN. Zofran when necessary for nausea and vomiting. SCDs in place. Disposition: Discharge to SNF for physical therapy in the next 1-3 days pending continued improvement. Pain Evaluation: Adequate Pain Control VTE Prophylaxis: SCDs VTE Mechanical Devices: Intermittant Pneumatic CD Resuscitation Status: CPR: Attempt Resuscitation Attending Statement The patient was seen and examined together with Dr. Castañeda on 02/05/2017 and I agree with the history, exam and plan as outlined in the note above. . Linda Castañeda DO February 05, 2017 14:03 Harry Negron MD February 05, 2017 16:45
--- NOTE | 2017-02-05 16:35 | NUR ---
H&H/Blood tx Pt H&H 04/12 this morning. 2units PRBCs ordered, second unit infusing at this time; labs to be drawn post transfusion. Pt dizzy and orthostatic for PT this morning, has been bedrest for duration of transfusions. When up pt was 1PA with FWW.
[2017-02-05] MEDS: Insulin GLARgine 100 Unit/mL Syringe SUBQ SCH (20:53)
--- NOTE | 2017-02-05 21:35 | NUR ---
H&H Pt had 2 units PRBC during day shift, rechecked labs...7 Hg/25 Hct to 11 Hg/35.5 Hct after transfusion. Pt still very weak & tired @ this time.
[2017-02-06 04:20] LABS: INR 2.49 ratio
[2017-02-06 04:33] LABS: MONOCYTES % (AUTO) 9 % (4-12); Mean Corpuscular Hemoglobin 24.2 pg (27.0-35.0); Mean Corpuscular Volume 77.1 fL (81-100); NEUTROPHILS % (AUTO) 72 % (40-74); Platelet Count 340 bil/L (150-400)
[2017-02-06 04:34] LABS: BASOPHILS % (AUTO) 0 % (0-3); EOSINOPHILS % (AUTO) 0 % (0-5)
--- NOTE | 2017-02-06 06:36 | NUR ---
POTASSIUM/WBC Pt still very weak, morning labs showed a decrease in K+ 3.2 and an increase in WBC from 7 to 11.5.
--- NOTE | 2017-02-06 07:25 | PCM.PHAPRO ---
Progress Found down at home. Date February 01-February 02-February 03-February 04-February 05-February 06-January INR 1.17 1.2 1.58 2.14 2.56 3.36 2.49 INR change 0.03 0.38 0.56 0.42 0.8 -0.87 Warf Dose 5mg 5 MG 3.5 2 1 HOLD 0.5 Andrew Torres Pharm.D February 06, 2017 07:25
[2017-02-06] MEDS: Insulin LISPRO 300 Unit/3 mL Inj SUBQ SCH ×4 (08:00→21:35)
[2017-02-06 09:10] VITALS: BP 157/59; PULSE 65; RESP 22; O2SAT 95
[2017-02-06] MEDS: Ascorbic Acid 500 mg Tablet PO SCH (09:17)
[2017-02-06] MEDS: Piper-Tazo 3.375 Gm/50 mL D5W Minibag Plus - Q8H over 4 hrs IV SCH ×4 (09:17→17:53)
[2017-02-06] MEDS: predniSONE 20 mg Tablet PO SCH (09:17)
[2017-02-06] MEDS: Linezolid Inj 600 MG in IV Premix 1 EACH IV SCH (09:26)
[2017-02-06] MEDS ORDERED: KCl 40 mEq/D5W 500 mL 40 MEQ in IV Premix 500 EACH IV ONE (11:05)
[2017-02-06 11:45] VITALS: BP 151/64; PULSE 66; RESP 20; O2SAT 94
[2017-02-06] MEDS: 0.9% Sodium Chloride 250 ML IV SCH (11:55)
--- NOTE | 2017-02-06 12:04 | NUR ---
Verbal Consent for ISELA PEER TUTOR spoke with pt's over the phone to discuss ISELA. She states that she does not want PEER TUTOR to continue to contact her regarding pt's ISELA and that she understands his rights.
--- NOTE | 2017-02-06 13:40 | PROG NOTE ---
[address] [address] PROGRESS NOTE PATIENT: BAO SAN : 1930 MR#: [id number] ADMIT: 01/30/2017 JOB ID: [id number] DATE: 02/06/2017 REASON FOR FOLLOWUP: Aspiration pneumonia. INTERVAL HISTORY: Over the past couple days, the patient reports he is much improved. He denies any fevers, chills, or sweats. He states he has a minimal but productive cough and he does not examine the sputum but rather just throws it away. He states he has no abdominal pain and his appetite is quite good. He did have a bit of left-sided abdominal pain, either last night or yesterday but that is resolved completely, and at this point, he is feeling pretty good and able to get up and around the room some with a walker. PHYSICAL EXAMINATION: Reveals a comfortable gentleman, no acute distress. Temp 36.9, pulse 65, respiratory rate 22, blood pressure 157/59. Pulse ox, saturating 95% on 3 L. Examination of mental status reveals he is completely clear though he is hard of hearing. Oral cavity is negative. Lungs: A few crackles at the right base but not impressive. Cardiac tones without new murmur. Abdomen soft and nontender. No skin rash. LABORATORIES: Include white count 11,000, which actually has bumped up over the past day or so. Platelet count 340. Differential: White count interestingly includes two metamyelocytes. Creatinine 0.98 which is steadily declining. LFTs which had gone up late last week are now improving. AST has come all the way down to normal at 36. ALT is dropping but still 90. Procalcitonin 0.93. Serologic studies include negative HIV. Hep C is pending. Micro studies basically negative. We did have a single positive blood culture in the beginning for coag-negative staph, which was a contaminant almost certainly, and a nasal PCR positive for MRSA. Otherwise negative blood cultures and urine antigens. His most recent chest x-ray was done February 04. It shows persistent bibasilar patchy opacities, more so on the right. I examined this film and agree that this could be compatible with pneumonia, and if so, probably aspiration in this patient who was found down. IMPRESSION: The patient continues to steadily improve in this, his 8th hospital day. He probably has an aspiration type pneumonia. He received a full course of azithromycin, which has stopped, and he is continuing on Zyvox as well as Zosyn. RECOMMENDATIONS: 1. I would continue with the Zyvox through February 09, which would complete a 10-day course. Note that this can be changed to oral and I have asked the pharmacy to make this switch. 2. The Zosyn could reasonably be stopped as early as tomorrow, February 07, as this will complete eight days of broad-spectrum antibiotics, which would be pretty standard for an aspiration pneumonia. I would give the Zyvox a bit longer because there is some suggestion in the literature that MRSA pneumonia requires a bit longer course of therapy if, in fact, MRSA is the prevailing organism here. 3. I think the patient could be considered for discharge as early as tomorrow to complete a couple days of oral Zyvox at home or at the rehab facility, or wherever he is headed. The IV antibiotics could almost certainly be stopped tomorrow if the patient is stable and his procalcitonin continues its downward trend. 4. ID will go ahead and sign off at this time as there are no active issues, but thank you very much for this consult.
--- NOTE | 2017-02-06 15:56 | NUR ---
Social Work: Readiness for Discharge D: Pt discussed in am rounds. Pt is not medically stable for discharge at this time. Per MD, pt will require at least one more night of hospitalization before discharge to nursing home. MD will place order for PERSONAL LINES ACCOUNT MANAGER to arrange skilled rehab. Pt has already been accepted at [facility] with Dr. Llanos to follow if MD agrees with this plan. PPW and PASSR are completed. PERSONAL LINES ACCOUNT MANAGER spoke with patient's who continues to be in agreement that the patient will require skilled rehab at time of discharge and that their preference is for [facility]. At this time, PT recommendation is for SNF via BLS. A: pt who is from [place] with his . P: Evolving; Awaiting MD orders to finalize SNF referral. Pt has been accepted at [facility] with Dr. Llanos to follow ANGELA Keane
[2017-02-06 17:54] VITALS: BP 155/72; PULSE 64; RESP 20; O2SAT 96
--- NOTE | 2017-02-06 18:24 | NUR ---
Activity Patient up with PT, unable to to do more than stand due to dizziness. BP check SBP >130 and DBP >70s. MD made aware order to round on pt frequently. Ongoing care.
--- NOTE | 2017-02-06 19:53 | PCM.PNMED ---
Subjective Date of Service February 06, 2017 [facility] daily. No acute events overnight with the exception of continued mild to moderate hypertension, and the patient continues on nasal cannula oxygen supplementation. Please note that he did receive 2 units PRBC yesterday to which he had a significant good response on hemoglobin and hematocrit. Today he reports that he feels quite weak, and continues to just not feeling he has any strength. Physical therapy did work with him and noted that he was somewhat more tired than yesterday. He did have the very brief (30 seconds to 1 minute) episode of sharp, focal left-sided chest pain which resolved without intervention. He denies further complications or complaints. ROS otherwise negative Exam Vital Signs Vital Sign - Last Date Time Temp Pulse Resp B/P Pulse Ox O2 Delivery O2 Flow Rate FiO2 02/06/17 17:54 36.8 64 20 155/72 96 Nasal Cannula 02/06/17 09:10 3.00 Intake and Output 02/05/17 02/05/17 02/06/17 Cumulative From/Thru 15:00 23:00 07:00 01/30/17 19:11 - 02/06/17 06:49 Intake Total 350 ml 1544 ml 620 ml 46543 ml Output Total 825 ml 1100 ml 7775 ml Balance 350 ml 719 ml -480 ml 7180 ml Intake Oral 320 ml 200 ml 1420 ml IV Total 50 ml 904 ml 420 ml 54371 ml Packed Cells 300 ml 320 ml 620 ml Output Urine Total 825 ml 1100 ml 7775 ml # Voids 6 # Bowel Movements 11 Exam General: Elderly man siting in bed with nasal cannula in place, alert, no acute distress, well-developed, well-nourished, appropriately interactive HEENT: Ecchymosis left sikh and right cheek that are improving. Normocephalic. External ears without defect. Anicteric sclerae, moist conjunctivae, minimally encrusted discharge of eyelids bilaterally, and no lid lag. Neck: Supple with full range of motion. Cardiovascular: Regular rate and rhythm with no murmurs, rubs, or gallops appreciated Pulmonary: Upper airway congestion. Diffuse crackles bilaterally. Normal respiratory effort with no use of accessory muscles. GI: Bowel tones present. Soft, nontender, nondistended. Midline bruit. Skin: Abrasion on lateral left forearm with wound dressing in place. Trace round area of erythema without warmth on left pectoralis approximately 6 cm in diameter that is stable. Neurological: Cranial nerves grossly intact. Normally walks with a cane to ambulate. Psychiatric: Normal mood and affect. Alert, oriented to person, place, and time. Lab and Diagnostics Result Diagram: 02/06/17 0325 02/06/17 0325 X-Rays, CTs and MRIs PROCEDURE: CT ABDOMEN AND PELVIS WITH CONTRAST IMPRESSION: 1. Right lower lobe consolidation consistent with pneumonia given clinical history. Consider followup x-ray to demonstrate resolution. 2. 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 Approved by: Jacob Mckeon M.D. on 01/30/2017 at 21:13 PROCEDURE: X-RAY CHEST ONE VIEW, PORTABLE IMPRESSION: 1. No acute traumatic abnormality. Approved by: Jacob Mckeon M.D. on 01/30/2017 at 19:51 PROCEDURE: CT BRAIN WITHOUT CONTRAST IMPRESSION: 1. No acute intracranial abnormality. 2. Mild chronic white matter small vessel ischemic changes and moderate cerebral volume loss. 3. Mild sinus mucosal disease. Approved by: Jacob Mckeon M.D. on 01/30/2017 at 20:03 PROCEDURE: X-RAY PELVIS, ONE OR TWO VIEWS IMPRESSION: 1. No definite fracture or dislocation, with evaluation of the right femoral neck slightly limited. If clinical concern persists, recommend further evaluation with CT. Approved by: Jacob Mckeon M.D. on 01/30/2017 at 20:50 PROCEDURE: X-RAY LEFT WRIST, TWO VIEWS IMPRESSION: No fracture Approved by: Joao Obrien M.D. on 01/31/2017 at 10:06 PROCEDURE: X-RAY LEFT SHOULDER, MINIMUM TWO VIEWS IMPRESSION: No fracture. Degenerative changes as above Approved by: Joao Obrien M.D. on 01/31/2017 at 10:04 PROCEDURE: X-RAY CHEST ONE VIEW, PORTABLE IMPRESSION: Bibasilar atelectasis versus aspiration or pneumonia. Correlate clinically. Approved by: Michelle Mancia MD, PhD on 02/01/2017 at 15:04 PROCEDURE: X-RAY CHEST ONE VIEW, PORTABLE IMPRESSION: 1. Placement right PICC and persistent biasilar patchy consolidative opacity, right greater than left suggestive of pneumonia. Approved by: Joao Obrien M.D. on 02/04/2017 at 14:28 Cardiac Echo Impressions Echocardiogram Report Interpretation Summary The left ventricle is normal in size, wall thickness, and systolic function without any focal wall motion abnormalities with the ejection fraction visually estimated to be 65-70%. Assessment of diastolic parameters indicates normal left ventricular diastolic function and normal filling pressures. There has been no significant change since the previous study. The right ventricle is normal in size and function and is unchanged compared to the previous study. The right ventricular systolic pressure is estimated at 30 mmHg assuming a right atrial pressure of 3 mm Hg. Comparison with the previous study is not possible because this was unable to be assessed on the previous study. The left atrium is mildly dilated and the right atrium is borderline dilated. Both atria have mildly increased in size since the prior echo exam. There is no significant valvular heart disease. There is trace mitral regurgitation that is less prominent compared to the previous study. Reading Physician:06: 01 PM Assessment & Plan Mr. Min Russell ([place]) is an 86 year old gentleman on Coumadin with a history of cerebellar CVA, diabetes, NSTEMI with angioplasty Aug 2016 to the RCA , atrial fibrillation and hyperlipidemia is brought to the ED via EMS due to being found down at home. Hospital day 3. Acute community acquired pneumonia or possible aspiration pneumonia, present on admission, Active. - CT Abdomen - Right lower lobe consolidation consistent with pneumonia. - Repeat CXR did not show significant change today - MRSA positive - Sputum cultures ordered - Flu negative - Viral PCR negative - S. Pneumo / Legionella urine antigens negative - Procalcitonin - 0.75 initially and 0.38 today - Swallow study ordered and puree diet currently - Received Ceftriaxone In ED. Discontinued ceftriaxone on 02/03/17 and azithromycin on 02/04/17. Linezolid added 01/31/2017 and will continue for total of 10 days. IV Zosyn added on 02/03/17 for aspiration pneumonia coverage. Linezolid IV for MRSA coverage on 01/31/17. Please note that per ID recommendations, Zyvox can be switched to by mouth (has been today), and Zosyn stopped. - Continue droplet precautions - Continue incentive spirometer and acapella Iron deficiency anemia, present on admission, stable. - Iron studies show low iron and low TIBC. - Hgb 9.1 initially - Typed and crossed. - CT abdomen as above - Stool Guaiac negative - Follow H&H - IV iron infusion 200 mg once today - Start PO ferrous 325 mg once daily with vitamin C 500 mg once daily on - Scheduled Senna to prevent constipation from iron supplement - Blood transfusion of two units of PRBCs. Consent obtained from patient and verbal consent from patient's obtained over the phone at 12:31 PM on 2016. Transaminitis, acute, improving. - AST 167, ALT 126 on 02/04/17, AST 79, ALT 131 today - Alk phos within normal limits - Patient had a previous cholecystectomy - Likely toxic hepatitis - Possibly secondary to Zosyn - Pt does not have abdominal pain or abdominal tenderness on exam - Discuss with pharmacy other possible medications that could contribute - Hold acetaminophen - Continue to monitor - Consider abdominal ultrasound if continued concern or no improvement Orthostatic hypotension - Orthostatic vital signs showed BP taken in sitting 133/56, standing 99/46 during physical therapy on 02/05/17, which is at least a 20 mmHg fall in systolic pressure and at least a 10 mmHg fall in diastolic pressure - Continue to hold beta td at this time - Continue to encourage PO intake with supplements and snacks Status post possible ground level fall - Pt was found down on ground - Likely related to septic encephalopathy and orthostatic hypotension - CT brain without contrast did not show any intracranial hemorrhage - Chest, pelvic, left shoulder and left wrist x-rays did not show any fractures - Continue to monitor Acute encephalopathy, present on admission, improved. - Most likely septic encephalopathy due to pneumonia below in combination with chronic small vessel ischemic changes as seen on CT brain. Possible encephalitis. - Pelvis x-ray negative, reviewed on admission - CT brain - no acute intra-cranial process - Blood cultures are positive for gram positive cocci, probable coagulase negative Staph but repeat blood cultures show no growth to date - Antibiotics per infectious disease - Physical therapy to help with pt's weakness and mobility. Consider brain MRI if any focal neurological deficits noted with pt walking. - Continue to monitor Acute kidney failure, present on admission, resolved. - Cr 1.38 on admission, 1.01 today - Follow I/O's closely - Repeat AM labs - Discontinued Guallpa Septic shock, acute, resolved. - Patient met criteria with fever, respiratory rate, and heart rate. Patient has positive blood cultures and pneumonia. - Patient was hypotensive on 01/31/17 in the evening and remained hypotensive until receiving 3 liters of fluid - Patient initially started on ceftriaxone and azithromycin both now discontinued. Linezolid was added (01/31/17) for MRSA coverage. Pt started on Zosyn and PO vancomycin today to cover for aspiration pneumonia and possible C.difficile infection on 02/03/17. - Infectious disease consulted and following, their time and recommendations are appreciated. - Discontinued PO vancomycin because C.diff was negative times two Chronic polymyalgia rheumatica and giant cell arteritis - Patient was taking 5 mg prednisone daily alf. Possibly adrenal insufficiency contributing to above hypotension. - Pt started on stress dosing of steroids. Given 1 dose of methylprednisolone 125 mg IV once on 01/31/17 and then 40 mg IV every 12 hours. Started taper to prednisone 40 mg once daily, then prednisone 20 mg once daily on 02/05/17. 02/05 would be day 5 of a prednisone burst, consider decreasing to patient's baseline prednisone of 5 mg once daily tomorrow - Monitor patient's response to steroids and will adjust dose accordingly Bacteremia, acute, resolved. - Blood cultures showed gram positive cocci, probable coagulase negative Staph , which was likely a contaminant - HIV and hepatitis C screens ordered - Repeat blood cultures show no growth to date - Echocardiogram as above did not show any signs of endocarditis Rhabdomyolysis, present on admission, resolved. - CK 996, decreased to 192 on 02/03/17 - Initial UA yellow, protein 100, RBC 3-10, occult blood moderate - Discontinued normal saline Non insulin using type II Diabetes, present on admission, active - Swallow evaluation as above - HgbA1c 6.2%. - Hold home glipizide during hospital stay - Low dose correctional Lispro insulin scale with basal insulin Lantus 5 units once daily Possible left forearm cellulitis and left anterior chest blister, acute, improving. - Erythema and edema surrounding an abrasion on his left forearm. Pt also had a blister on his left upper chest. - Wound consulted and following. Their time and recommendations are appreciated. - Continue to monitor - Antibiotics as above Aortic dissection, present on admission, active. - CT Abdomen - Short segment dissection or penetrating atherosclerotic ulcer redemonstrated within the aorta with increased thrombus within the false lumen. Previous imaging 05/20/2008 Focal dissection versus ulcerated plaque involving the distal abdominal aorta - Monitor blood pressure Chronic anticoagulation, Subtherapeutic, present on admission, Active. - Per records, placed on Warfarin for Afib, currently sinus rhythm - INR 1.17 initially - Continue home warfarin, pharmacy to order - Hold Clopidgrel, Per Cardiology notes 3-6 mo of Clopidogrel from aug 2016, then d/c and restart ASA with warfarin. Low phosphorus level, acute, present on admission, resolved. - Phosphorous level 1.1 but increased to 2.7 - Replenished with IV phosphorous Other chronic conditions: Coronary artery disease - NSTEMI in 08/2016 with 1 drug eluting stent to the RCA - Pt was discharged on atorvastatin, metoprolol, and clopidogrel - Hold Clopidgrel, Per Cardiology notes 3-6 mo of Clopidogrel from aug 2016, then d/c and restart ASA with warfarin. - Hold metoprolol as heart rate is in the 60s - Consider starting an ACEI/ARB now that kidney function has returned to normal Gout - Hold home allopurinol due to possible acute kidney injury as above BPH - Hold home Flomax and monitor urine output and blood pressure for now and resume if blood pressure stable Chronic Atrial fibrillation - currently sinus rhythm - Hold home metoprolol and continue when appropriate Depression - Continue citalopram 10 mg once daily Acetaminophen for mild pain when necessary. Bowel regimen Senna and MiraLAX scheduled and PRN. Zofran when necessary for nausea and vomiting. Patient is admitted under inpatient status with expected length of stay greater than 2 midnights due to severity of presenting symptoms, risk of adverse event, and complexity of treatment plan. Disposition: Discharge to SNF for physical therapy and nursing support in the next 1-2 days pending continued improvement. Pain Evaluation: Adequate Pain Control VTE Prophylaxis: SCDs VTE Mechanical Devices: Intermittant Pneumatic CD Resuscitation Status: CPR: Attempt Resuscitation Attending Statement The patient was seen and examined together with Dr. Dueñas on 02/06/2017 and I agree with the history, exam and plan as outlined in the note above. . North Webb DO February 06, 2017 19:53 Harry Negron MD February 07, 2017 14:54
[2017-02-06] MEDS ORDERED: Linezolid Inj 600 MG in IV Premix 1 EACH IV SCH (20:30)
[2017-02-06 21:14] VITALS: BP 155/61; PULSE 68; RESP 20; O2SAT 94
[2017-02-06] MEDS: Insulin GLARgine 100 Unit/mL Syringe SUBQ SCH (21:35)
--- NOTE | 2017-02-06 23:00 | NUR ---
Transfer [place] [facility] Report given to NATA HARDWICK. Transferred via own bed. All belongings with pt. Pt alert and orientated. No telemetry.
[2017-02-07] MEDS: Piper-Tazo 3.375 Gm/50 mL D5W Minibag Plus - Q8H over 4 hrs IV SCH ×6 (01:08→16:54)
[2017-02-07 01:09] VITALS: BP 184/76; PULSE 54; RESP 18; O2SAT 97
[2017-02-07 06:09] VITALS: BP 184/73; PULSE 53; RESP 18; O2SAT 95
--- NOTE | 2017-02-07 06:47 | NUR ---
NOC note: Pt was able to sleep much of the night. Turned and positioned in bed with assistance, although pt also noted to be turning independently. Bed alarm on for safety. Calmoseptine applied to buttock for maceration.
[2017-02-07 07:32] LABS: BASOPHILS % (AUTO) 0.2 % (0-3); EOSINOPHILS % (AUTO) 0 % (0-5); MONOCYTES % (AUTO) 6.1 % (4-12); Mean Corpuscular Hemoglobin 24.5 pg (27.0-35.0); Mean Corpuscular Volume 78.3 fL (81-100); NEUTROPHILS % (AUTO) 73.9 % (40-74); Platelet Count 312 bil/L (150-400)
[2017-02-07 07:44] LABS: Magnesium 1.8 mg/dL (1.6-2.6); Phosphorus 2.7 mg/dL (2.5-4.9)
[2017-02-07] MEDS: Insulin LISPRO 300 Unit/3 mL Inj SUBQ SCH ×4 (07:44→22:00)
[2017-02-07] MEDS: predniSONE 20 mg Tablet PO SCH (07:45)
[2017-02-07] MEDS: Ascorbic Acid 500 mg Tablet PO SCH (07:45)
[2017-02-07 07:56] LABS: INR 2.12 ratio
[2017-02-07] MEDS: 0.9% Sodium Chloride 250 ML IV SCH (10:53)
[2017-02-07 14:52] VITALS: BP 148/73; PULSE 64; RESP 18; O2SAT 96
--- NOTE | 2017-02-07 15:56 | NUR ---
NUTRITION FOLLOW-UP: Assess: 86 YO male admitted with sepsis, pneumonia, bacteremia, hypotension, JESSE and aortic dissection after being found down at home. Pt diet has been advanced to dysphagia Mechanical with supplements on all trays. PO intake is 25-50%. PMHX:Cerebellar CVA, type 2 DM, A-fib, gout, polymyalgia rheumatica, GERD, HLD. DIET: Dysphagia Mechanical, Ensure all trays. PO intake now 25-50%. LABS: Reviewed. Alb 2.7. MEDICATIONS: Reviewed. GI: BM x 2 (02/06/17) SKIN: Left forearm presents with open area, large blister at his left pectoral area. ANTHROPOMETRICS: Wt 78.3 kg. Admit wt: 74.6 kg. ESTIMATED NEEDS: Calories: 2328-7078 kcal/day (25-30 kcal/kg BW) Protein: 64-120 g/day (0.8-1.5 g/kg BW) NUTRITION DIAGNOSIS: 1) Inadequate oral intake related to decreased ability to consume sufficient energy as evidenced by PO intake of 25-50% - PERSISTS. 2.) Chewing / swallowing difficulties related to motor causes as evidenced by current need for mechanically altered diet texture INTERVENTION: 1.) Continue to send ensure all trays. 2.) Diet advancement per speech therapy. MONITOR/EVALUATE: PO intake, labs, GI/nutrition status. Follow per moderate nutrition risk guidelines.
--- NOTE | 2017-02-07 16:00 | PCM.PHAPRO ---
Progress Found down at home. WARFARIN DOSING PER PHARMACY [facility] Date February 01-February 02-February 03-February 04-February 05-February 06-February 07-January INR 1.17 1.2 1.58 2.14 2.56 3.36 2.49 2.12 INR change 0.03 0.38 0.56 0.42 0.8 -0.87 -0.37 Warf Dose 5mg 5 MG 3.5 2 1 HOLD 0.5 3.5 A/P -Therapeutic INR following held and decreased doses past few days. Suspect effects of prior higher doses have worn off at this stage. -No acute s/s of bleeding noted. -Will increase back to home dose of warfarin 3.5mg this evening. Henrry Lance, PharmD Henrry Lance February 07, 2017 16:00
--- NOTE | 2017-02-07 18:05 | NUR ---
Activity Pt. stated, "I want to walk, I have been here." PT came. Pt. and PT ambulated in room and hallway. Pt. was assisted to sit on chair twice this shift. No pain. Pt. was forgetful at times. He was reorientated easily.
[2017-02-07 22:20] VITALS: BP 151/71; PULSE 65; RESP 20; O2SAT 95
[2017-02-07] MEDS: Insulin GLARgine 100 Unit/mL Syringe SUBQ SCH (23:07)
--- NOTE | 2017-02-07 23:10 | PCM.PNMED ---
Subjective Date of Service February 07, 2017 Subjective The patient has no new complaints. He is resting comfortably supine in bed. Exam Vital Signs Vital Sign - Last Date Time Temp Pulse Resp B/P Pulse Ox O2 Delivery O2 Flow Rate FiO2 02/07/17 22:20 36.8 65 20 151/71 95 Nasal Cannula 2.50 Intake and Output 02/06/17 02/06/17 02/07/17 Cumulative From/Thru 15:00 23:00 07:00 01/30/17 19:11 - 02/07/17 06:42 Intake Total 765 ml 142 ml 08719 ml Output Total 325 ml 950 ml 9050 ml Balance 440 ml -808 ml 6812 ml Intake Oral 390 ml 0 ml 1810 ml IV Total 375 ml 142 ml 16284 ml Packed Cells 620 ml Output Urine Total 325 ml 950 ml 9050 ml # Voids 6 # Bowel Movements 2 0 13 Exam General: Patient is resting comfortably supine in bed in no apparent distress. HEENT: Head is atraumatic and normocephalic. Eyes: Pupils are equally round and reactive to light and accommodation. Extraocular muscles are intact. Sclera are white, anicteric. Subconjunctival mucosa is pink. Ears and nose are unremarkable. Oropharynx: There is no mucosal lesions, there is no thrush, there is no pharyngitis. Neck: Is supple, there are no nodes, or masses or tenderness. Chest: Is to give consent for some scattered crackles at the bases. Heart: Rate, rhythm is regular. There is no murmur, rub or gallop. Abdomen: Good bowel sounds are present. Abdomen is soft, nontender, no organomegaly or masses were appreciated. Extremities: Are symmetrical and well perfused. There is no edema, there is no cellulitis, no rash. Neurologic: There are no focal neurological deficits. Cranial nerves II through XII are intact. There are no sensory or motor deficits. Psychiatric: Patients mood is calm and shows no sign of agitation. However, he is anxious to go home. Genital: Deferred Rectal: Deferred Lab and Diagnostics Result Diagram: 02/07/17 0630 02/07/17 0630 X-Rays, CTs and MRIs PROCEDURE: CT ABDOMEN AND PELVIS WITH CONTRAST IMPRESSION: 1. Right lower lobe consolidation consistent with pneumonia given clinical history. Consider followup x-ray to demonstrate resolution. 2. 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 Approved by: Jacob Mckeon M.D. on 01/30/2017 at 21:13 PROCEDURE: X-RAY CHEST ONE VIEW, PORTABLE IMPRESSION: 1. No acute traumatic abnormality. Approved by: Jacob Mckeon M.D. on 01/30/2017 at 19:51 PROCEDURE: CT BRAIN WITHOUT CONTRAST IMPRESSION: 1. No acute intracranial abnormality. 2. Mild chronic white matter small vessel ischemic changes and moderate cerebral volume loss. 3. Mild sinus mucosal disease. Approved by: Jacob Mckeon M.D. on 01/30/2017 at 20:03 PROCEDURE: X-RAY PELVIS, ONE OR TWO VIEWS IMPRESSION: 1. No definite fracture or dislocation, with evaluation of the right femoral neck slightly limited. If clinical concern persists, recommend further evaluation with CT. Approved by: Jacob Mckeon M.D. on 01/30/2017 at 20:50 PROCEDURE: X-RAY LEFT WRIST, TWO VIEWS IMPRESSION: No fracture Approved by: Joao Obrien M.D. on 01/31/2017 at 10:06 PROCEDURE: X-RAY LEFT SHOULDER, MINIMUM TWO VIEWS IMPRESSION: No fracture. Degenerative changes as above Approved by: Joao Obrien M.D. on 01/31/2017 at 10:04 PROCEDURE: X-RAY CHEST ONE VIEW, PORTABLE IMPRESSION: Bibasilar atelectasis versus aspiration or pneumonia. Correlate clinically. Approved by: Michelle Mancia MD, PhD on 02/01/2017 at 15:04 PROCEDURE: X-RAY CHEST ONE VIEW, PORTABLE IMPRESSION: 1. Placement right PICC and persistent biasilar patchy consolidative opacity, right greater than left suggestive of pneumonia. Approved by: Joao Obrien M.D. on 02/04/2017 at 14:28 Cardiac Echo Impressions Echocardiogram Report Interpretation Summary The left ventricle is normal in size, wall thickness, and systolic function without any focal wall motion abnormalities with the ejection fraction visually estimated to be 65-70%. Assessment of diastolic parameters indicates normal left ventricular diastolic function and normal filling pressures. There has been no significant change since the previous study. The right ventricle is normal in size and function and is unchanged compared to the previous study. The right ventricular systolic pressure is estimated at 30 mmHg assuming a right atrial pressure of 3 mm Hg. Comparison with the previous study is not possible because this was unable to be assessed on the previous study. The left atrium is mildly dilated and the right atrium is borderline dilated. Both atria have mildly increased in size since the prior echo exam. There is no significant valvular heart disease. There is trace mitral regurgitation that is less prominent compared to the previous study. Reading Physician:06: 01 PM Assessment & Plan Mr. Min Russell ([place]) is an 86 year old gentleman on Coumadin with a history of cerebellar CVA, diabetes, NSTEMI with angioplasty Aug 2016 to the RCA , atrial fibrillation and hyperlipidemia is brought to the ED via EMS due to being found down at home. Hospital day 3. Acute community acquired pneumonia or possible aspiration pneumonia, present on admission, Active. - CT Abdomen - Right lower lobe consolidation consistent with pneumonia. - Repeat CXR did not show significant change today - MRSA positive - Sputum cultures ordered. However, there is no specimen in the lab. Likely unable to be obtained. - Flu negative - Viral PCR negative - S. Pneumo / Legionella urine antigens negative - Procalcitonin - 0.75 initially and 0.38 today - Swallow study ordered and puree diet currently - Received Ceftriaxone In ED. Discontinued ceftriaxone on 02/03/17 and azithromycin on 02/04/17. Linezolid added 01/31/2017 and will continue for total of 10 days. IV Zosyn added on 02/03/17 for aspiration pneumonia coverage. Linezolid IV for MRSA coverage on 01/31/17. Please note that per ID recommendations, Zyvox can be switched to by mouth (has been today), and Zosyn stopped. We will need to see if patient and his will be able to afford outpatient oral Zyvox therapy prior to discharge. - Continue droplet precautions - Continue incentive spirometer and acapella Iron deficiency anemia, present on admission, stable. - Iron studies show low iron and low TIBC. - Hgb 9.1 initially - Typed and crossed. - CT abdomen as above - Stool Guaiac negative - Follow H&H - IV iron infusion 200 mg once has been given - Started PO ferrous 325 mg once daily with vitamin C 500 mg once daily on 02/05. We will continue - Scheduled Senna to prevent constipation from iron supplement - Blood transfusion of two units of PRBCs was given. Consent obtained from patient and verbal consent from patient's obtained over the phone at 12:31 PM on 02/05/2017. Transaminitis, acute, improving. - Liver function tests continue to normalize - Alk phos within normal limits - Patient had a previous cholecystectomy - Likely toxic hepatitis - Possibly secondary to Zosyn. However, this is unlikely - Pt does not have abdominal pain or abdominal tenderness on exam - Discuss with pharmacy other possible medications that could contribute - We will continue to Hold acetaminophen for now - Continue to monitor Orthostatic hypotension - Orthostatic vital signs showed BP taken in sitting 133/56, standing 99/46 during physical therapy on 02/05/17, which is at least a 20 mmHg fall in systolic pressure and at least a 10 mmHg fall in diastolic pressure - Continue to hold beta td at this time - Continue to encourage PO intake with supplements and snacks Status post possible ground level fall - Pt was found down on ground - Likely related to septic encephalopathy and orthostatic hypotension - CT brain without contrast did not show any intracranial hemorrhage - Chest, pelvic, left shoulder and left wrist x-rays did not show any fractures - Continue to monitor Acute encephalopathy, present on admission, improved. - Most likely septic encephalopathy due to pneumonia below in combination with chronic small vessel ischemic changes as seen on CT brain. Possible encephalitis. - Pelvis x-ray negative, reviewed on admission - CT brain - no acute intra-cranial process - Blood cultures are positive for gram positive cocci, probable coagulase negative Staph but repeat blood cultures show no growth to date - Antibiotics per infectious disease - Physical therapy to help with pt's weakness and mobility. Consider brain MRI if any focal neurological deficits noted with pt walking. - Continue to monitor Acute kidney failure, present on admission, resolved. - Cr 1.38 on admission, 1.01 today - Follow I/O's closely - Repeat AM labs - Discontinued Ramu Septic shock, acute, resolved. - Patient met criteria with fever, respiratory rate, and heart rate. Patient has positive blood cultures and pneumonia. - Patient was hypotensive on 01/31/17 in the evening and remained hypotensive until receiving 3 liters of fluid - Patient initially started on ceftriaxone and azithromycin both now discontinued. Linezolid was added (01/31/17) for MRSA coverage. Pt started on Zosyn and PO vancomycin to cover for aspiration pneumonia and possible C.difficile infection on 02/03/17. - Infectious disease consulted and following, their time and recommendations are appreciated. - Discontinued PO vancomycin because C.diff was negative times two Chronic polymyalgia rheumatica and giant cell arteritis - Patient was taking 5 mg prednisone daily detention. Possibly adrenal insufficiency contributing to above hypotension. - Pt started on stress dosing of steroids. Given 1 dose of methylprednisolone 125 mg IV once on 01/31/17 and then 40 mg IV every 12 hours. Started taper to prednisone 40 mg once daily, then prednisone 20 mg once daily on 02/05/17. 02/05 would be day 5 of a prednisone burst, consider decreasing to patient's baseline prednisone of 5 mg once daily tomorrow - Monitor patient's response to steroids and will adjust dose accordingly Bacteremia, acute, resolved. - Blood cultures showed gram positive cocci, probable coagulase negative Staph , which was likely a contaminant - HIV and hepatitis C screens ordered - Repeat blood cultures show no growth to date - Echocardiogram as above did not show any signs of endocarditis Rhabdomyolysis, present on admission, resolved. - CK 996, decreased to 192 on 02/03/17 - Initial UA yellow, protein 100, RBC 3-10, occult blood moderate - Discontinued normal saline Non insulin using type II Diabetes, present on admission, active - Swallow evaluation as above - HgbA1c 6.2%. - Hold home glipizide during hospital stay - Low dose correctional Lispro insulin scale with basal insulin Lantus 5 units once daily Possible left forearm cellulitis and left anterior chest blister, acute, improving. - Erythema and edema surrounding an abrasion on his left forearm. Pt also had a blister on his left upper chest. - Wound consulted and following. Their time and recommendations are appreciated. - Continue to monitor - Antibiotics as above Aortic dissection, present on admission, active. - CT Abdomen - Short segment dissection or penetrating atherosclerotic ulcer redemonstrated within the aorta with increased thrombus within the false lumen. Previous imaging 05/20/2008 Focal dissection versus ulcerated plaque involving the distal abdominal aorta - Monitor blood pressure Chronic anticoagulation, Subtherapeutic, present on admission, Active. - Per records, placed on Warfarin for Afib, currently sinus rhythm - INR 1.17 initially - Continue home warfarin, pharmacy to order - Hold Clopidgrel, Per Cardiology notes 3-6 mo of Clopidogrel from aug 2016, then d/c and restart ASA with warfarin. Low phosphorus level, acute, present on admission, resolved. - Phosphorous level 1.1 but increased to 2.7 - Replenished with IV phosphorous Other chronic conditions: Coronary artery disease - NSTEMI in 08/2016 with 1 drug eluting stent to the RCA - Pt was discharged on atorvastatin, metoprolol, and clopidogrel - Hold Clopidgrel, Per Cardiology notes 3-6 mo of Clopidogrel from aug 2016, then d/c and restart ASA with warfarin. - Hold metoprolol as heart rate is in the 60s - Consider starting an ACEI/ARB now that kidney function has returned to normal Gout - Hold home allopurinol due to possible acute kidney injury as above BPH - Hold home Flomax and monitor urine output and blood pressure for now and resume if blood pressure stable Chronic Atrial fibrillation - currently sinus rhythm - Hold home metoprolol and continue when appropriate Depression - Continue citalopram 10 mg once daily Acetaminophen for mild pain when necessary. Bowel regimen Senna and MiraLAX scheduled and PRN. Zofran when necessary for nausea and vomiting. Patient is admitted under inpatient status with expected length of stay greater than 2 midnights due to severity of presenting symptoms, risk of adverse event, and complexity of treatment plan. Disposition: Discharge to SNF for physical therapy and nursing support in the next 1-2 days pending continued improvement. Pain Evaluation: Adequate Pain Control VTE Prophylaxis: Theraputic Anticoag with Warfarin, SCDs VTE Mechanical Devices: Intermittant Pneumatic CD Resuscitation Status: CPR: Attempt Resuscitation Yves Kaur MD February 07, 2017 23:10
[2017-02-08] MEDS: Piper-Tazo 3.375 Gm/50 mL D5W Minibag Plus - Q8H over 4 hrs IV SCH ×4 (01:37→07:49)
[2017-02-08 06:12] VITALS: BP 169/66; PULSE 63; RESP 20; O2SAT 93
[2017-02-08 06:52] LABS: INR 1.83 ratio
[2017-02-08] MEDS: Insulin LISPRO 300 Unit/3 mL Inj SUBQ SCH ×4 (07:38→20:39)
[2017-02-08] MEDS: predniSONE 20 mg Tablet PO SCH (07:48)
[2017-02-08] MEDS: Ascorbic Acid 500 mg Tablet PO SCH (07:48)
[2017-02-08 09:28] LABS: BASOPHILS % (AUTO) 0.2 % (0-3); EOSINOPHILS % (AUTO) 0 % (0-5); MONOCYTES % (AUTO) 6.2 % (4-12); Mean Corpuscular Hemoglobin 24.5 pg (27.0-35.0); Mean Corpuscular Volume 78.1 fL (81-100); NEUTROPHILS % (AUTO) 78.6 % (40-74); Platelet Count 369 bil/L (150-400)
[2017-02-08] MEDS: 0.9% Sodium Chloride 250 ML IV SCH (09:58)
[2017-02-08 09:59] LABS: Magnesium 1.8 mg/dL (1.6-2.6)
--- NOTE | 2017-02-08 11:33 | DRSVH ---
PROCEDURE: X-RAY CHEST, TWO VIEWS ([id number]) INDICATIONS: Follow up for Pulmonary Infiltrates TECHNIQUE: 2 views of the chest were acquired. COMPARISON: [facility], CR, XR CHEST 1VW (PORTABLE), 02/04/2017, 8:44. FINDINGS: Surgical changes and devices: Right PICC tip projected over the lower SVC. Lungs and pleura: No pleural effusions or pneumothorax. Persistent airspace opacity present within the right lower lobe not significantly changed. Left lung is clear. Mediastinum: Mediastinal contours are normal. Heart size is normal. Bones and chest wall: No suspicious bony abnormalities. Soft tissues appear unremarkable. IMPRESSION: Persistent right lower lobe consolidation. Continued radiographic surveillance to resolut ion is recommended. Dictated by: Cleveland CHIRINOS Interpreted: Myesha Patel MD on 02/08/2017 at 11:32 Transcribed by: HERMINIA on 02/08/2017 at 11:33 Approved by: Myesha Patel M.D. on 02/09/2017 at 15:56
[2017-02-08 13:34] VITALS: BP 150/60; PULSE 64; RESP 18; O2SAT 96
[2017-02-08] MEDS ORDERED: Mupirocin 2% 22 Gm Ointment NASAL SCH (14:45)
--- NOTE | 2017-02-08 14:58 | NUR ---
BOB - Continued D/C planning Per MD pt has stated he plans to go home at discharge rather than to SNF. SW checked in with pt at bedside to confirm plan to go to [facility] at discharge. Pt stated SW should speak to his about this, as she is the one coordinating things. SW contacted Madai via phone [phone] and left voicemail. SW will continue to follow. ANGELA Gutierrez
[2017-02-08] MEDS: Mupirocin 2% 22 Gm Ointment NASAL SCH ×2 (15:32→20:47)
[2017-02-08] MEDS: Nystatin 100,000 Unit/mL 5 mL Suspension PO SCH ×2 (18:33→22:24)
[2017-02-08 19:35] VITALS: BP 125/50; PULSE 66; RESP 20; O2SAT 89
[2017-02-08] MEDS: Insulin GLARgine 100 Unit/mL Syringe SUBQ SCH (20:48)
--- NOTE | 2017-02-08 20:55 | NUR ---
Confusion Increasing confusion after dinner, c/o cold from "wind blowing through room" Offered another blanket. Resting peacefully bed down, locked, 3 side rails up, call light within reach.
--- NOTE | 2017-02-08 21:44 | PCM.PNMED ---
Subjective Date of Service February 08, 2017 Subjective Patient has no new complaints. He is sitting up in bed and appears comfortable. Exam Vital Signs Vital Sign - Last Date Time Temp Pulse Resp B/P Pulse Ox O2 Delivery O2 Flow Rate FiO2 02/08/17 19:35 36.1 66 20 125/50 89 Nasal Cannula 1.50 Intake and Output 02/07/17 02/07/17 02/08/17 Cumulative From/Thru 15:00 23:00 07:00 01/30/17 19:11 - 02/08/17 05:39 Intake Total 687 ml 159 ml 51708 ml Output Total 1000 ml 13859 ml Balance -313 ml 159 ml 6658 ml Intake Oral 500 ml 2310 ml IV Total 187 ml 159 ml 94841 ml Packed Cells 620 ml Output Urine Total 1000 ml 02489 ml # Voids 2 8 # Bowel Movements 1 14 Exam General: Patient is resting comfortably sitting up in bed and in no apparent distress. HEENT: Head is atraumatic and normocephalic. Eyes: Pupils are equally round and reactive to light and accommodation. Extraocular muscles are intact. Sclera are white, anicteric. Subconjunctival mucosa is pink. Ears and nose are unremarkable. Oropharynx: There is no mucosal lesions, there is thrush on the tongue, there is no pharyngitis. Neck: Is supple, there are no nodes, or masses or tenderness. Chest: Is significant for some scattered crackles at the bases. However, his lungs sound clearer today. Heart: Rate, rhythm is regular. There is no murmur, rub or gallop. Abdomen: Good bowel sounds are present. Abdomen is soft, nontender, no organomegaly or masses were appreciated. Extremities: Are symmetrical and well perfused. There is no edema, there is no cellulitis, no rash. Neurologic: There are no focal neurological deficits. Cranial nerves II through XII are intact. There are no sensory or motor deficits. Psychiatric: Patients mood is calm and shows no sign of agitation. Genital: Deferred Rectal: Deferred Lab and Diagnostics Result Diagram: 02/08/1791902/08/17 09 X-Rays, CTs and MRIs PROCEDURE: CT ABDOMEN AND PELVIS WITH CONTRAST IMPRESSION: 1. Right lower lobe consolidation consistent with pneumonia given clinical history. Consider followup x-ray to demonstrate resolution. 2. 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 Approved by: Jacob Mckeon M.D. on 01/30/2017 at 21:13 PROCEDURE: X-RAY CHEST ONE VIEW, PORTABLE IMPRESSION: 1. No acute traumatic abnormality. Approved by: Jacob Mckeon M.D. on 01/30/2017 at 19:51 PROCEDURE: CT BRAIN WITHOUT CONTRAST IMPRESSION: 1. No acute intracranial abnormality. 2. Mild chronic white matter small vessel ischemic changes and moderate cerebral volume loss. 3. Mild sinus mucosal disease. Approved by: Jacob Mckeon M.D. on 01/30/2017 at 20:03 PROCEDURE: X-RAY PELVIS, ONE OR TWO VIEWS IMPRESSION: 1. No definite fracture or dislocation, with evaluation of the right femoral neck slightly limited. If clinical concern persists, recommend further evaluation with CT. Approved by: Jacob Mckeon M.D. on 01/30/2017 at 20:50 PROCEDURE: X-RAY LEFT WRIST, TWO VIEWS IMPRESSION: No fracture Approved by: Joao Obrien M.D. on 01/31/2017 at 10:06 PROCEDURE: X-RAY LEFT SHOULDER, MINIMUM TWO VIEWS IMPRESSION: No fracture. Degenerative changes as above Approved by: Joao Obrien M.D. on 01/31/2017 at 10:04 PROCEDURE: X-RAY CHEST ONE VIEW, PORTABLE IMPRESSION: Bibasilar atelectasis versus aspiration or pneumonia. Correlate clinically. Approved by: Michelle Mancia MD, PhD on 02/01/2017 at 15:04 PROCEDURE: X-RAY CHEST ONE VIEW, PORTABLE IMPRESSION: 1. Placement right PICC and persistent biasilar patchy consolidative opacity, right greater than left suggestive of pneumonia. Approved by: Joao Obrien M.D. on 02/04/2017 at 14:28 Cardiac Echo Impressions Echocardiogram Report Interpretation Summary The left ventricle is normal in size, wall thickness, and systolic function without any focal wall motion abnormalities with the ejection fraction visually estimated to be 65-70%. Assessment of diastolic parameters indicates normal left ventricular diastolic function and normal filling pressures. There has been no significant change since the previous study. The right ventricle is normal in size and function and is unchanged compared to the previous study. The right ventricular systolic pressure is estimated at 30 mmHg assuming a right atrial pressure of 3 mm Hg. Comparison with the previous study is not possible because this was unable to be assessed on the previous study. The left atrium is mildly dilated and the right atrium is borderline dilated. Both atria have mildly increased in size since the prior echo exam. There is no significant valvular heart disease. There is trace mitral regurgitation that is less prominent compared to the previous study. Reading Physician:06: 01 PM Assessment & Plan Mr. Min Russell ([place]) is an 86 year old gentleman on Coumadin with a history of cerebellar CVA, diabetes, NSTEMI with angioplasty Aug 2016 to the RCA , atrial fibrillation and hyperlipidemia is brought to the ED via EMS due to being found down at home. Hospital day 3. Acute community acquired pneumonia or possible aspiration pneumonia, present on admission, Active. - CT Abdomen - Right lower lobe consolidation consistent with pneumonia. - Repeat CXR did not show significant change today - MRSA positive - Sputum cultures ordered. However, there is no specimen in the lab. Likely unable to be obtained. - Flu negative - Viral PCR negative - S. Pneumo / Legionella urine antigens negative - Procalcitonin - improved - Swallow study ordered and puree diet currently - Received Ceftriaxone In ED. Discontinued ceftriaxone on 02/03/17 and azithromycin on 02/04/17. Linezolid added 01/31/2017 and will continue for total of 10 days. IV Zosyn added on 02/03/17 for aspiration pneumonia coverage. Linezolid IV for MRSA coverage on 01/31/17. Please note that per ID recommendations, Zyvox can be switched to by mouth (has been today), and Zosyn stopped. We will need to see if patient and his will be able to afford outpatient oral Zyvox therapy prior to discharge. - Continue droplet precautions - Continue incentive spirometer and acapella Thrush - Likely a product of patient being on broad-spectrum antibiotics and prednisone and diabetes mellitus.. - Start nystatin swish and swallow Iron deficiency anemia, present on admission, stable. - Iron studies show low iron and low TIBC. - Hgb 9.1 initially - Typed and crossed. - CT abdomen as above - Stool Guaiac negative - Follow H&H - IV iron infusion 200 mg once has been given - Started PO ferrous 325 mg once daily with vitamin C 500 mg once daily on 02/05. We will continue - Scheduled Senna to prevent constipation from iron supplement - Blood transfusion of two units of PRBCs was given. Consent obtained from patient and verbal consent from patient's obtained over the phone at 12:31 PM on 02/05/2017. Transaminitis, acute, improving. - Liver function tests continue to normalize - Alk phos within normal limits - Patient had a previous cholecystectomy - Likely toxic hepatitis - Possibly secondary to Zosyn. However, this is unlikely - Pt does not have abdominal pain or abdominal tenderness on exam - Discuss with pharmacy other possible medications that could contribute - We will continue to Hold acetaminophen for now - Continue to monitor Orthostatic hypotension - Orthostatic vital signs showed BP taken in sitting 133/56, standing 99/46 during physical therapy on 02/05/17, which is at least a 20 mmHg fall in systolic pressure and at least a 10 mmHg fall in diastolic pressure - Continue to hold beta td at this time - Continue to encourage PO intake with supplements and snacks Status post possible ground level fall - Pt was found down on ground - Likely related to septic encephalopathy and orthostatic hypotension - CT brain without contrast did not show any intracranial hemorrhage - Chest, pelvic, left shoulder and left wrist x-rays did not show any fractures - Continue to monitor Acute encephalopathy, present on admission, improved. - Most likely septic encephalopathy due to pneumonia below in combination with chronic small vessel ischemic changes as seen on CT brain. Possible encephalitis. - Pelvis x-ray negative, reviewed on admission - CT brain - no acute intra-cranial process - Blood cultures are positive for coagulase negative Staph. This is most likely due to contamination as repeat blood cultures show no growth to date - Antibiotics per infectious disease - Physical therapy to help with pt's weakness and mobility. Consider brain MRI if any focal neurological deficits noted with pt walking. - Continue to monitor Acute kidney failure, present on admission, resolved. - Cr 1.38 on admission, and is now normalized - Follow I/O's closely - Repeat AM labs - Discontinued Gu[place]pa Septic shock, acute, resolved. - Patient met criteria with fever, respiratory rate, and heart rate. Patient has positive blood cultures and pneumonia. - Patient was hypotensive on 01/31/17 in the evening and remained hypotensive until receiving 3 liters of fluid - Patient initially started on ceftriaxone and azithromycin both now discontinued. Linezolid was added (01/31/17) for MRSA coverage. Pt started on Zosyn and PO vancomycin to cover for aspiration pneumonia and possible C.difficile infection on 02/03/17. - Infectious disease consulted and following, their time and recommendations are appreciated. 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 Possibly adrenal insufficiency contributing to above hypotension. - Pt started on stress dosing of steroids. Given 1 dose of methylprednisolone 125 mg IV once on 01/31/17 and then 40 mg IV every 12 hours. Started taper to prednisone 40 mg once daily, then prednisone 20 mg once daily on 02/05/17. 02/05 would be day 5 of a prednisone burst, we will taper slowly due to recent evidence of adrenal insufficiency. We will therefore decrease prednisone from 20 mg a day to 15 mg a day. - Monitor patient's response to steroids and will adjust dose accordingly Bacteremia, acute, resolved. - Blood cultures showed gram positive cocci, probable coagulase negative Staph , which was likely a contaminant - HIV and hepatitis C screens ordered - Repeat blood cultures show no growth to date - Echocardiogram as above did not show any signs of endocarditis Rhabdomyolysis, present on admission, resolved. - CK 996, decreased to 192 on 02/03/17 - Initial UA yellow, protein 100, RBC 3-10, occult blood moderate - Discontinued normal saline Non insulin using type II Diabetes, present on admission, active - Swallow evaluation as above - HgbA1c 6.2%. - Hold home glipizide during hospital stay - Low dose correctional Lispro insulin scale with basal insulin Lantus 5 units once daily Possible left forearm cellulitis and left anterior chest blister, acute, improving. - Erythema and edema surrounding an abrasion on his left forearm. Pt also had a blister on his left upper chest. - Wound consulted and following. Their time and recommendations are appreciated. - Continue to monitor - Antibiotics as above Aortic dissection, present on admission, active. - CT Abdomen - Short segment dissection or penetrating atherosclerotic ulcer redemonstrated within the aorta with increased thrombus within the false lumen. Previous imaging 05/20/2008 Focal dissection versus ulcerated plaque involving the distal abdominal aorta - Monitor blood pressure Chronic anticoagulation, Subtherapeutic, present on admission, Active. - Per records, placed on Warfarin for Afib, currently sinus rhythm - INR 1.17 initially - Continue home warfarin, pharmacy to order - Hold Clopidgrel, Per Cardiology notes 3-6 mo of Clopidogrel from aug 2016, then d/c and restart ASA with warfarin. Low phosphorus level, acute, present on admission, resolved. - Phosphorous level 1.1 but increased to 2.7 - Replenished with IV phosphorous Other chronic conditions: Coronary artery disease - NSTEMI in 08/2016 with 1 drug eluting stent to the RCA - Pt was discharged on atorvastatin, metoprolol, and clopidogrel - Hold Clopidgrel, Per Cardiology notes 3-6 mo of Clopidogrel from aug 2016, then d/c and restart ASA with warfarin. - Hold metoprolol as heart rate is in the 60s - Consider starting an ACEI/ARB now that kidney function has returned to normal Gout - Hold home allopurinol due to possible acute kidney injury as above BPH - Hold home Flomax and monitor urine output and blood pressure for now and resume if blood pressure stable Chronic Atrial fibrillation - currently sinus rhythm - Hold home metoprolol and continue when appropriate Depression - Continue citalopram 10 mg once daily Acetaminophen for mild pain when necessary. Bowel regimen Senna and MiraLAX scheduled and PRN. Zofran when necessary for nausea and vomiting. Disposition: Physical therapy is recommending discharge to SNF for physical therapy and nursing support. However, the patient states that the decision to send him to a [facility] facility should be a last resort and she would really like him to come home with her. Apparently they have 2 homes, one [place] the [place]. The patient's normally lives in the house in the country, while the patient lives in the house in the city. Will attempt to discharge the patient home in the next 24-48 hours in the care of the patient's in the [place]". Pain Evaluation: Adequate Pain Control VTE Prophylaxis: Theraputic Anticoag with Warfarin, SCDs VTE Mechanical Devices: Intermittant Pneumatic CD Resuscitation Status: CPR: Attempt Resuscitation Yves Kaur MD February 08, 2017 21:44
--- NOTE | 2017-02-09 05:01 | NUR ---
CONFUSION/ACTIVITY Patient continues to exhibit mild confusion and frustration with questions. Up to BSC, very weak with poor gait. Denies pain. Complaint with care.
[2017-02-09 05:37] LABS: BASOPHILS % (AUTO) 0.1 % (0-3); EOSINOPHILS % (AUTO) 0 % (0-5); MONOCYTES % (AUTO) 7.6 % (4-12); Mean Corpuscular Hemoglobin 24.3 pg (27.0-35.0); Mean Corpuscular Volume 78.8 fL (81-100); NEUTROPHILS % (AUTO) 69.1 % (40-74); Platelet Count 284 bil/L (150-400)
[2017-02-09 05:55] LABS: INR 1.81 ratio
[2017-02-09 06:02] VITALS: BP 159/65; PULSE 67; RESP 19; O2SAT 91
[2017-02-09] MEDS: Insulin LISPRO 300 Unit/3 mL Inj SUBQ SCH ×4 (08:00→22:00)
[2017-02-09] MEDS ORDERED: predniSONE 20 mg Tablet PO SCH (08:30)
[2017-02-09] MEDS: Ascorbic Acid 500 mg Tablet PO SCH (08:35)
[2017-02-09] MEDS: predniSONE 10 MG, predniSONE 5 MG PO SCH ×2 (08:35)
[2017-02-09] MEDS: Nystatin 100,000 Unit/mL 5 mL Suspension PO SCH ×4 (08:42→21:07)
[2017-02-09] MEDS: Mupirocin 2% 22 Gm Ointment NASAL SCH ×2 (10:59→22:50)
[2017-02-09] MEDS: 0.9% Sodium Chloride 250 ML IV SCH (11:06)
--- NOTE | 2017-02-09 12:05 | NUR ---
Social Work: Readiness for Discharge D: Pt is on day 10 of hospitalization for sepsis, pneumonia, aortic dissection. EMR reviewed. Pt discussed in am rounds and is possible to discharge tomorrow. PT had been recommending SNF and pt is accepted at [facility] SNF per MD orders and pt choice. SW spoke with pt's Madai in pt's room and she stated she would like the pt to go home at discharge if at all possible, and SNF is "last resort". PT reported that pt's ambulation is improving and they are now recommending home with HH PT. SW will provided choice list to pt after MD orders for HH PT are received. SW will communicate recommendation from PT to MD. Pt has already been accepted at [facility] with Dr. Llanos if SNF is indicated at discharge and MD orders from SNF are in. PPW and PASSR are completed. A: pt who is from [place] with his . P: Pt likley to discharge tomorrow home with HH PT pending orders from MD. Pt has been accepted at [facility] with Dr. Llanos to follow if SNf is indicated at discharge. No further needs assessed at this time. SW will continue to follow. Renetta Piña MSW
[2017-02-09 13:15] VITALS: BP 134/77; PULSE 63; RESP 20; O2SAT 92
--- NOTE | 2017-02-09 14:35 | NUR ---
APPETITE/PLAVIX Patient refuses breakfast and lunch stating he does not have an appetite and does not want to eat food until he takes his Plavix, otherwise he will have acid reflux symptoms. Plavix has been ordered and administered. Will contact speech therapy for swallow evaluation and will encourage intake. Patient resting with eyes closed, bed in lowest and locked position, call light within reach. Will continue to monitor.
[2017-02-09] MEDS: MeTOProlol XL 25 mg ER24 Tablet PO SCH ×2 (14:46→21:05)
--- NOTE | 2017-02-09 16:28 | PCM.PHAPRO ---
Progress Found down at home. WARFARIN MANAGEMENT PER PHARMACY [facility] MB DFF DFF DFF Date February 01-February 02-February 03-February 04-February 05-February 06-February 07-February 08-February 09-January INR 1.17 1.2 1.58 2.14 2.56 3.36 2.49 2.12 1.83 1.81 INR change 0.03 0.38 0.56 0.42 0.8 -0.87 -0.37 -0.29 -0.02 Warf Dose 5mg 5 MG 3.5 2 1 HOLD 0.5 3.5 3.5 4 A/P -Subtherapeutic INR with prior held doses attributing to this level. -Will make small adjustment to warfarin 4mg tonight but nothing higher given high levels with trial of 5mg previously Henrry Lance, PharmD Henrry Lance February 09, 2017 16:28
[2017-02-09 20:24] VITALS: BP 165/71; PULSE 65; RESP 19; O2SAT 93
[2017-02-09] MEDS ORDERED: Bacitracin Ointment Packet TOPICAL ONE (20:56)
[2017-02-09] MEDS: Insulin GLARgine 100 Unit/mL Syringe SUBQ SCH (22:03)
--- NOTE | 2017-02-09 23:25 | PCM.PNMED ---
Subjective Date of Service February 09, 2017 Subjective The patient had epigastric/chest pain overnight along with SVT this morning. The patient is feeling a little bit better today. He has no other new complaints. Exam Vital Signs Vital Sign - Last Date Time Temp Pulse Resp B/P Pulse Ox O2 Delivery O2 Flow Rate FiO2 02/09/17 20:24 36.4 65 19 165/71 93 Nasal Cannula 2.00 Intake and Output 02/08/17 02/08/17 02/09/17 Cumulative From/Thru 15:00 23:00 07:00 01/30/17 19:11 - 02/09/17 06:41 Intake Total 0 ml 718 ml 100 ml 54309 ml Output Total 550 ml 500 ml 300 ml 28255 ml Balance -550 ml 218 ml -200 ml 6126 ml Intake Oral 0 ml 718 ml 100 ml 3128 ml IV Total 74568 ml Packed Cells 620 ml Output Urine Total 550 ml 500 ml 57693 ml Urine/Stool Mix 300 ml 300 ml # Voids 2 10 # Bowel Movements 1 15 Exam General: Patient is resting comfortably sitting up in bed and in no apparent distress. HEENT: Head is atraumatic and normocephalic. Eyes: Pupils are equally round and reactive to light and accommodation. Extraocular muscles are intact. Sclera are white, anicteric. Subconjunctival mucosa is pink. Ears and nose are unremarkable. Oropharynx: There is no mucosal lesions, there is thrush on the tongue, there is no pharyngitis. Neck: Is supple, there are no nodes, or masses or tenderness. Chest: Is significant for some scattered crackles at the bases. However, his lungs sound clearer again today. Heart: Rate, rhythm is regular. There is no murmur, rub or gallop. Abdomen: Good bowel sounds are present. Abdomen is soft, nontender, no organomegaly or masses were appreciated. Extremities: Are symmetrical and well perfused. There is no edema, there is no cellulitis, no rash. Neurologic: There are no focal neurological deficits. Cranial nerves II through XII are intact. There are no sensory or motor deficits. Psychiatric: Patients mood is calm and shows no sign of agitation. Genital: Deferred Rectal: Deferred Lab and Diagnostics Result Diagram: 02/09/1751902/09/17519 Microbiology Name: BAO RUSSELL Age/Sex: 86/M Attend Dr: Lesli Amor Acct: [id number] Unit: [id number] Status: ADM IN Location: [facility] 2020-09 Re01/30/17 Disch: Specimen: [id number] Collected: 01/31/17 Status: COMP Req#: [id number] Received: 01/31/17 Source: NOSE Sp Desc : Subm Dr: HALI TEE DO Ordered: ANAY MRSA PCR Comments: Collected by Nurse/Unit? Y/N Y Procedure Result Verified Site Microbiology ANAY MRSA PCR Final 02/02/17 MRSA BY PCR DETECTED POSITIVE REFERENCE INTERVAL NOT DETECTED Organism 1 MRSA POSITIVE BY PCR SENSITIVITY COMMENTS MRSA confirmed by susceptiblity X-Rays, CTs and MRIs PROCEDURE: CT ABDOMEN AND PELVIS WITH CONTRAST IMPRESSION: 1. Right lower lobe consolidation consistent with pneumonia given clinical history. Consider followup x-ray to demonstrate resolution. 2. 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 Approved by: Jacob Mckeon M.D. on 01/30/2017 at 21:13 PROCEDURE: X-RAY CHEST ONE VIEW, PORTABLE IMPRESSION: 1. No acute traumatic abnormality. Approved by: Jacob Mckeon M.D. on 01/30/2017 at 19:51 PROCEDURE: CT BRAIN WITHOUT CONTRAST IMPRESSION: 1. No acute intracranial abnormality. 2. Mild chronic white matter small vessel ischemic changes and moderate cerebral volume loss. 3. Mild sinus mucosal disease. Approved by: Jacob Mckeon M.D. on 01/30/2017 at 20:03 PROCEDURE: X-RAY PELVIS, ONE OR TWO VIEWS IMPRESSION: 1. No definite fracture or dislocation, with evaluation of the right femoral neck slightly limited. If clinical concern persists, recommend further evaluation with CT. Approved by: Jacob Mckeon M.D. on 01/30/2017 at 20:50 PROCEDURE: X-RAY LEFT WRIST, TWO VIEWS IMPRESSION: No fracture Approved by: Joao Obrien M.D. on 01/31/2017 at 10:06 PROCEDURE: X-RAY LEFT SHOULDER, MINIMUM TWO VIEWS IMPRESSION: No fracture. Degenerative changes as above Approved by: Joao Obrien M.D. on 01/31/2017 at 10:04 PROCEDURE: X-RAY CHEST ONE VIEW, PORTABLE IMPRESSION: Bibasilar atelectasis versus aspiration or pneumonia. Correlate clinically. Approved by: Michelle Mancia MD, PhD on 02/01/2017 at 15:04 PROCEDURE: X-RAY CHEST ONE VIEW, PORTABLE IMPRESSION: 1. Placement right PICC and persistent biasilar patchy consolidative opacity, right greater than left suggestive of pneumonia. Approved by: Joao Obrien M.D. on 02/04/2017 at 14:28 Cardiac Echo Impressions Echocardiogram Report Interpretation Summary The left ventricle is normal in size, wall thickness, and systolic function without any focal wall motion abnormalities with the ejection fraction visually estimated to be 65-70%. Assessment of diastolic parameters indicates normal left ventricular diastolic function and normal filling pressures. There has been no significant change since the previous study. The right ventricle is normal in size and function and is unchanged compared to the previous study. The right ventricular systolic pressure is estimated at 30 mmHg assuming a right atrial pressure of 3 mm Hg. Comparison with the previous study is not possible because this was unable to be assessed on the previous study. The left atrium is mildly dilated and the right atrium is borderline dilated. Both atria have mildly increased in size since the prior echo exam. There is no significant valvular heart disease. There is trace mitral regurgitation that is less prominent compared to the previous study. Reading Physician:06: 01 PM Assessment & Plan Mr. Bao Russell ([place]) is an 86 year old gentleman on Coumadin with a history of cerebellar CVA, diabetes, NSTEMI with angioplasty Aug 2016 to the RCA , atrial fibrillation and hyperlipidemia is brought to the ED via EMS due to being found down at home. Hospital day 3. Acute community acquired pneumonia or possible aspiration pneumonia, present on admission, Active. - CT Abdomen - Right lower lobe consolidation consistent with pneumonia. - Repeat CXR did not show significant change today - MRSA positive - Sputum cultures ordered. However, there is no specimen in the lab. Likely unable to be obtained. - Flu negative - Viral PCR negative - S. Pneumo / Legionella urine antigens negative - Procalcitonin - improved - Swallow study ordered and puree diet currently - Received Ceftriaxone In ED. Discontinued ceftriaxone on 02/03/17 and azithromycin on 02/04/17. Linezolid added 01/31/2017 and will continue for total of 10 days. IV Zosyn added on 02/03/17 for aspiration pneumonia coverage. Linezolid IV for MRSA coverage on 01/31/17. Please note that per ID recommendations, Zyvox can be switched to by mouth (has been done), and Zosyn stopped. We may discontinue linezolid after doses on 02/10/2017. - Continue droplet precautions - Continue incentive spirometer and acapella Thrush - Likely a product of patient being on broad-spectrum antibiotics and prednisone and diabetes mellitus.. - Start nystatin swish and swallow - Begin to taper prednisone to 15 mg a day. Patient normally takes 5 mg a day to keep his polymyositis and temporal arteritis under control. Iron deficiency anemia, present on admission, stable. - Iron studies show low iron and low TIBC. - Hgb 9.1 initially - Typed and crossed. - CT abdomen as above - Stool Guaiac negative - Follow H&H - IV iron infusion 200 mg once has been given - Started PO ferrous 325 mg once daily with vitamin C 500 mg once daily on 02/05. We will continue - Scheduled Senna to prevent constipation from iron supplement - Blood transfusion of two units of PRBCs was given. Consent obtained from patient and verbal consent from patient's obtained over the phone at 12:31 PM on 02/05/2017. Transaminitis, acute, improving. - Liver function tests continue to normalize - Alk phos within normal limits - Patient had a previous cholecystectomy - Likely toxic hepatitis - Possibly secondary to Zosyn. However, this is unlikely - Pt does not have abdominal pain or abdominal tenderness on exam - Discuss with pharmacy other possible medications that could contribute - We will continue to Hold acetaminophen for now - Continue to monitor Orthostatic hypotension - Orthostatic vital signs showed BP taken in sitting 133/56, standing 99/46 during physical therapy on 02/05/17, which is at least a 20 mmHg fall in systolic pressure and at least a 10 mmHg fall in diastolic pressure - Continue to hold beta td at this time - Continue to encourage PO intake with supplements and snacks Status post possible ground level fall - Pt was found down on ground - Likely related to septic encephalopathy and orthostatic hypotension - CT brain without contrast did not show any intracranial hemorrhage - Chest, pelvic, left shoulder and left wrist x-rays did not show any fractures - Continue to monitor Acute encephalopathy, present on admission, improved. - Most likely septic encephalopathy due to pneumonia below in combination with chronic small vessel ischemic changes as seen on CT brain. Possible encephalitis. - Pelvis x-ray negative, reviewed on admission - CT brain - no acute intra-cranial process - Blood cultures are positive for coagulase negative Staph. This is most likely due to contamination as repeat blood cultures show no growth to date - Antibiotics per infectious disease - Physical therapy to help with pt's weakness and mobility. Consider brain MRI if any focal neurological deficits noted with pt walking. - Continue to monitor Acute kidney failure, present on admission, resolved. - Cr 1.38 on admission, and is now normalized - Follow I/O's closely - Repeat AM labs - Discontinued Guallpa Septic shock, acute, resolved. - Patient met criteria with fever, respiratory rate, and heart rate. Patient has positive blood cultures and pneumonia. - Patient was hypotensive on 01/31/17 in the evening and remained hypotensive until receiving 3 liters of fluid - Patient initially started on ceftriaxone and azithromycin both now discontinued. Linezolid was added (01/31/17) for MRSA coverage. Pt started on Zosyn and PO vancomycin to cover for aspiration pneumonia and possible C.difficile infection on 02/03/17. - Infectious disease consulted and following, their time and recommendations are appreciated. 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 Possibly adrenal insufficiency contributing to above hypotension. - Pt started on stress dosing of steroids. Given 1 dose of methylprednisolone 125 mg IV once on 01/31/17 and then 40 mg IV every 12 hours. Started taper to prednisone 40 mg once daily, then prednisone 20 mg once daily on 02/05/17. 02/05 would be day 5 of a prednisone burst, we will taper slowly due to recent evidence of adrenal insufficiency. We will therefore decrease prednisone from 20 mg a day to 15 mg a day. Would recommend discharging on 10 mg a day on Tuesday and further doses can be tapered back to his baseline by his primary care doctor. - Monitor patient's response to steroids and will adjust dose accordingly Bacteremia, acute, resolved. - Blood cultures showed gram positive cocci, probable coagulase negative Staph , which was likely a contaminant - HIV and hepatitis C screens ordered - Repeat blood cultures show no growth to date - Echocardiogram as above did not show any signs of endocarditis Rhabdomyolysis, present on admission, resolved. - CK 996, decreased to 192 on 02/03/17 - Initial UA yellow, protein 100, RBC 3-10, occult blood moderate - Discontinued normal saline Non insulin using type II Diabetes, present on admission, active - Swallow evaluation as above - HgbA1c 6.2%. - Hold home glipizide during hospital stay - Low dose correctional Lispro insulin scale with basal insulin Lantus 5 units once daily Possible left forearm cellulitis and left anterior chest blister, acute, improving. - Erythema and edema surrounding an abrasion on his left forearm. Pt also had a blister on his left upper chest. - Wound consulted and following. Their time and recommendations are appreciated. - Continue to monitor - Antibiotics as above Aortic dissection, present on admission, active. - CT Abdomen - Short segment dissection or penetrating atherosclerotic ulcer redemonstrated within the aorta with increased thrombus within the false lumen. Previous imaging 05/20/2008 Focal dissection versus ulcerated plaque involving the distal abdominal aorta - Monitor blood pressure Atrial fibrillation on Chronic anticoagulation, Subtherapeutic, present on admission, Active. - Restart metoprolol 12.5 mg by mouth twice a day - Continue Warfarin for Afib, currently sinus rhythm - INR 1.17 initially - Continue home warfarin, pharmacy to dose - Restart Clopidgrel, Low phosphorus level, acute, present on admission, resolved. - Phosphorous level 1.1 but increased to 2.7 - Replenished with IV phosphorous Coronary artery disease with chest pain last night - NSTEMI in 08/2016 with 1 drug eluting stent to the RCA - Pt was discharged on atorvastatin, metoprolol, and clopidogrel - Clopidgrel has been on hold. Discussed case with patient's triage register nurse Dr. Jackson today and he would like the patient to be on prednisone for an entire year after placement of his drug-eluting stent. Therefore the patient was restarted with 300 mg today and 75 mg by mouth daily thereafter. - Restart metoprolol 12.5 mg by mouth twice a day - Consider starting an ACEI/ARB now that kidney function has returned to normal Gout - Restart home allopurinol due to possible acute kidney injury as above BPH - Restart home Flomax and monitor urine output and blood pressure for now and resume if blood pressure stable Depression - Continue citalopram 10 mg once daily Acetaminophen for mild pain when necessary. Bowel regimen Senna and MiraLAX scheduled and PRN. Zofran when necessary for nausea and vomiting. Disposition: Physical therapy is recommending discharge to SNF for physical therapy and nursing support. However, the patient's states that the decision to send him to a jail facility should be a last resort and she would really like him to come home with her. Apparently they have 2 homes, one [place] the [place]. The patient's normally lives in the house in the country, while the patient lives in the house in the city. Will attempt to discharge the patient home in the next 24-48 hours in the care of the patient's in the [place]". Pain Evaluation: Adequate Pain Control VTE Prophylaxis: Theraputic Anticoag with Warfarin, SCDs VTE Mechanical Devices: Intermittant Pneumatic CD Resuscitation Status: CPR: Attempt Resuscitation OtoeYves MD February 09, 2017 23:25
[2017-02-10 05:48] VITALS: BP 156/76; PULSE 66; RESP 18; O2SAT 95
[2017-02-10 06:34] LABS: BASOPHILS % (AUTO) 0.1 % (0-3); EOSINOPHILS % (AUTO) 0 % (0-5); MONOCYTES % (AUTO) 5.9 % (4-12); Mean Corpuscular Hemoglobin 23.9 pg (27.0-35.0); Mean Corpuscular Volume 76.8 fL (81-100); NEUTROPHILS % (AUTO) 74.6 % (40-74); Platelet Count 277 bil/L (150-400)
[2017-02-10 07:01] LABS: Magnesium 2.3 mg/dL (1.6-2.6)
[2017-02-10 07:09] LABS: TROPONIN T < 0.010 ug/L (0.0-0.011)
[2017-02-10 07:41] LABS: INR 2.46 ratio
[2017-02-10] MEDS: Insulin LISPRO 300 Unit/3 mL Inj SUBQ SCH ×2 (08:00→12:00)
[2017-02-10] MEDS: Ascorbic Acid 500 mg Tablet PO SCH (08:24)
[2017-02-10] MEDS: Mupirocin 2% 22 Gm Ointment NASAL SCH (08:25)
[2017-02-10] MEDS: Nystatin 100,000 Unit/mL 5 mL Suspension PO SCH ×2 (08:25→13:00)
[2017-02-10] MEDS: predniSONE 10 MG, predniSONE 5 MG PO SCH ×2 (08:26)
[2017-02-10] MEDS: MeTOProlol XL 25 mg ER24 Tablet PO SCH (08:27)
[2017-02-10] MEDS: 0.9% Sodium Chloride 250 ML IV SCH (10:25)
[2017-02-10 10:46] VITALS: BP 151/58; PULSE 67; O2SAT 92
[2017-02-10 10:48] VITALS: BP 171/48; PULSE 73
[2017-02-10 10:49] VITALS: BP 124/61; PULSE 69
[2017-02-10] MEDS ORDERED: PRD5T PO (11:21)
--- NOTE | 2017-02-10 11:25 | PCM.DIMED ---
Discharge Instructions Date of Service February 10, 2017 Dates of Hospitalization January 30, 2017 at 21:57 Discharge Diagnosis Discharge Diagnosis Acute community acquired pneumonia or possible aspiration pneumonia, Oral Thrush with steroid use Transaminitis, probably medicine induced Orthostatic hypotension Status post possible ground level fall Acute encephalopathy, ost likely septic encephalopathy due to pneumonia Acute kidney failure Septic shock Rhabdomyolysis Medication Instructions Additional med instructions take 15mg of prednisone for one week, then 10mg for one week, then return to normal strength 5mg daily use Mupirocin ointment on bilateral nare for one more day Patient Instructions Patient Instructions You were hospitalized with aspiration pneumonia, treated with antibiotics. Your general condition was significantly improved. Please note that your steroid dosage was changed. Please follow up with your primary doctor in 2weeks Follow-up Provider: Favian Lao MD Follow-up with PCP in: 2 weeks Giuseppe Ferguson MD February 10, 2017 11:25
--- NOTE | 2017-02-10 11:40 | NUR ---
Social Work: Discharge Data: Pt is on day 11 of hospitalization. EMR reviewed. D/C orders are in. LINING BASTER ordered by to set up HH for PT, RN. LINING BASTER met with pt and spouse, HH CHOICE LIST GIVEN. No preference stated. LINING BASTER referred to rotating calendar, referred pt to [facility]. Access given. 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 No further d/c planning needs at this time. LINING BASTER will continue to follow if needs arise. Assessment: Pt who is independent at baseline. Plan: Pt will d/c home via POV with spouse today with [facility], RN and PT. No further d/c planning needs at this time. LINING BASTER will continue to follow if needs arise. ANGELA Casas
--- NOTE | 2017-02-10 13:46 | NUR ---
's behavior This RN overheard pt's , Madai, raising her voice to one of the [facility], intervened to see what the problem was. Pt's began to shout that the "doctor wrote the orders two hours ago, and we need to go! I have a coding educator and I will get a lawsuit!" when asked what the lawsuit would entail, and what we as an organization could do to make this better, her reply "NOTHING!! we have been waiting, and this is terrible service! and I am a class A Bitch! he's just passive that's what's wrong with him, but we're leaving, whether or not that PICC line is removed! and furthermore they took him off his heart medication!!" This RN explained that when the discharge paperwork was printed the only change to medication was the dose of the Prednisone. "But it was that Dr Kaur who did it and he JUST put it back!" Informed the that if she continued to [place] staff, security would be notified, her reply was "FINE! but I'm leaving with him!" Informed the pt and the that this RN as well as the corporate secretary had both called IV therapy and they indicated that would be up as soon as they could. Additionally, due to 's dissatisfaction, this RN offered to invite the yard warehouse worker up for the pt and , declined stating she "already had a coding educator to deal with all this poor service" While waiting outside the room with security, for IVT, approached this RN and indicated that "someone said that YOU had all the paperwork and when I went to the front you weren't even working on it! In a hospital this big there should be more than 1 person to take out these PICCs" Explained that there is more than 1 IVT nurse, but she may be in a more critical situation, she would be here as soon as possible. "Well then it's just going to be tomorrow or midnight before we leave." Attempted to reassure pt's , and indicated that IVT would be called again if they did not show up within 15 minutes.
--- NOTE | 2017-02-10 14:14 | PCM.PHAPRO ---
Progress Found down at home. WARFARIN MANAGEMENT PER PHARMACY [facility] MB DFF DFF DFF DFF Date February 01-February 02-February 03-February 04-February 05-February 06-February 07-February 08-February 09-February 10- January INR 1.17 1.2 1.58 2.14 2.56 3.36 2.49 2.12 1.83 1.81 2.46 INR change 0.03 0.38 0.56 0.42 0.8 -0.87 -0.37 -0.29 -0.02 0.65 Warf Dose 5mg 5 MG 3.5 2 1 HOLD 0.5 3.5 3.5 4 3 A/P -Thearapeutic INR but rapid increase. No s/s of bleed noted. -Will decrease dose to warfarin 3 mg this evening. Henrry Lance, PharmD Henrry Lance February 10, 2017 14:14
--- NOTE | 2017-02-10 14:31 | NUR ---
Discharge Pt discharged at this time, all belongings gathered and returned to pt. PICC line removed by IV therapy. VSS. Hard copy of new prescription given to pt to fill. No complains of increased pain or SOB at this time. Discharge packet printed and reviewed with pt and spouse. [place] [facility] to be driven home in private vehicle driven by spouse.
--- NOTE | 2017-02-10 17:14 | PCM.DC.MED ---
Discharge Summary Date of Service February 10, 2017 Dates of Hospitalization Date of Hospital Admission January 30, 2017 at 21:57 Date of Discharge: February 10, 2017 Providers: Admitting Physician: Lesli Amor DO Primary Care Physician: Favian Lao MD Attending Physician: Lesli Amor DO Diagnosis at Time of Discharge Diagnosis at Time of Discharge acute dx Acute community acquired pneumonia or possible aspiration pneumonia, Oral Thrush with steroid use Transaminitis, probably medicine induced Orthostatic hypotension Status post possible ground level fall Acute encephalopathy, ost likely septic encephalopathy due to pneumonia Acute kidney failure Septic shock Rhabdomyolysis chronic dx Chronic polymyalgia rheumatica and giant cell arteritis Bacteremia - Blood cultures showed gram positive cocci, probable coagulase negative Staph, which was likely a contaminant Non insulin using type II Diabetes, Possible left forearm cellulitis and left anterior chest blister Aortic dissection Atrial fibrillation on Chronic anticoagulation Coronary artery disease NSTEMI in 08/2016 with 1 drug eluting stent to the RCA Gout BPH Depression Consultations ID Procedures XRay, CTs & MRIs PROCEDURE: CT ABDOMEN AND PELVIS WITH CONTRAST IMPRESSION: 1. Right lower lobe consolidation consistent with pneumonia given clinical history. Consider followup x-ray to demonstrate resolution. 2. 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 Approved by: Jacob Mckeon M.D. on 01/30/2017 at 21:13 PROCEDURE: X-RAY CHEST ONE VIEW, PORTABLE IMPRESSION: 1. No acute traumatic abnormality. Approved by: Jacob Mckeon M.D. on 01/30/2017 at 19:51 PROCEDURE: CT BRAIN WITHOUT CONTRAST IMPRESSION: 1. No acute intracranial abnormality. 2. Mild chronic white matter small vessel ischemic changes and moderate cerebral volume loss. 3. Mild sinus mucosal disease. Approved by: Jacob Mckeon M.D. on 01/30/2017 at 20:03 PROCEDURE: X-RAY PELVIS, ONE OR TWO VIEWS IMPRESSION: 1. No definite fracture or dislocation, with evaluation of the right femoral neck slightly limited. If clinical concern persists, recommend further evaluation with CT. Approved by: Jacob Mckeon M.D. on 01/30/2017 at 20:50 PROCEDURE: X-RAY LEFT WRIST, TWO VIEWS IMPRESSION: No fracture Approved by: Joao Obrien M.D. on 01/31/2017 at 10:06 PROCEDURE: X-RAY LEFT SHOULDER, MINIMUM TWO VIEWS IMPRESSION: No fracture. Degenerative changes as above Approved by: Joao Obrien M.D. on 01/31/2017 at 10:04 PROCEDURE: X-RAY CHEST ONE VIEW, PORTABLE IMPRESSION: Bibasilar atelectasis versus aspiration or pneumonia. Correlate clinically. Approved by: Michelle Mancia MD, PhD on 02/01/2017 at 15:04 PROCEDURE: X-RAY CHEST ONE VIEW, PORTABLE IMPRESSION: 1. Placement right PICC and persistent biasilar patchy consolidative opacity, right greater than left suggestive of pneumonia. Approved by: Joao Obrien M.D. on 02/04/2017 at 14:28 Cardiac Echo Impression Echocardiogram Report Interpretation Summary The left ventricle is normal in size, wall thickness, and systolic function without any focal wall motion abnormalities with the ejection fraction visually estimated to be 65-70%. Assessment of diastolic parameters indicates normal left ventricular diastolic function and normal filling pressures. There has been no significant change since the previous study. The right ventricle is normal in size and function and is unchanged compared to the previous study. The right ventricular systolic pressure is estimated at 30 mmHg assuming a right atrial pressure of 3 mm Hg. Comparison with the previous study is not possible because this was unable to be assessed on the previous study. The left atrium is mildly dilated and the right atrium is borderline dilated. Both atria have mildly increased in size since the prior echo exam. There is no significant valvular heart disease. There is trace mitral regurgitation that is less prominent compared to the previous study. Reading Physician:06: 01 PM Brief History HPI obtained by on 01/30 Mr. Bao Russell (Ted) is an 86 year old gentleman on Coumadin with a history of cerebellar CVA, diabetes, NSTEMI with angioplasty 2016 to the RCA, atrial fibrillation and hyperlipidemia is brought to the ED via EMS due to being found down at home. The pt was found down in his bedroom by paramedics , laying face down on the floor. The pt's ex last spoke to him two days ago and states that he was acting normally at that time. She did not hear from him yesterday but did not think anything of it. She called the pt several times 5/13/17 without a reply, and asked the pt's grandson to check on him. The grandson found his car in the driveway but there was no reply when he knocked on the door. Paramedics were called and found the pt on the floor in his bedroom. He was febrile and disoriented with no recollection of the event. Upon interview on the [facility], patient was moderately alert, oriented to person and president (Trump) not time or place. Patient complains of no pain at this time nor has any other complaints when questioned. However on physical exam he has marked decreased strength and range of motion in his left shoulder and very tender to palpation on the anterior left shoulder. He has no recollection of events leading up to a possible fall or passing out. In the emergency department patient was febrile at 37.6, peak of 38.1 pulse remained around 90, respiratory rate 18, blood pressure 121/37 now stabilized at 142/60, 99% on 2 L nasal cannula. Initial labs white count 10.8, neutrophils 81%, lymphs 8.4, hemoglobin 9.1, electrolytes including calcium mag normal, creatinine 1.38, glucose 187, troponins negative TLT normal, phosphorus 1.7, lactic acid 1.9, CK 996 and pro calcitonin 0.75. Blood cultures 2 were taken and influenza screen was negative. Hospital Course Mr. Bao Russell ([place]) is an 86 year old gentleman on Coumadin with a history of cerebellar CVA, diabetes, NSTEMI with angioplasty Aug 2016 to the RCA , atrial fibrillation and hyperlipidemia is brought to the ED via EMS due to being found down at home. Brief hospital course: pt was admitted with probable aspiration pneumonia. CT showed RLL consolidation. patient received Rocephin and azithromycin, later zosyn and linezolid was added since MRSA swab was positive. Patient finished the course of abx as per ID recommendation. patient was clinically stable upon d/c with stable respiratory status. patient was discharged to home with home health and RN, PT. Acute community acquired pneumonia or possible aspiration pneumonia, present on admission, Active. - CT Abdomen - Right lower lobe consolidation consistent with pneumonia. - Repeat CXR did not show significant change today - MRSA positive - Sputum cultures ordered. However, there is no specimen in the lab. Likely unable to be obtained. - Flu negative - Viral PCR negative - S. Pneumo / Legionella urine antigens negative - Procalcitonin - improved - Swallow study ordered and puree diet currently - Received Ceftriaxone In ED. Discontinued ceftriaxone on 02/03/17 and azithromycin on 02/04/17. Linezolid added 01/31/2017 and will continue for total of 10 days. IV Zosyn added on 02/03/17 for aspiration pneumonia coverage. Linezolid IV for MRSA coverage on 01/31/17. Please note that per ID recommendations, Zyvox can be switched to by mouth (has been done), and Zosyn stopped. We may discontinue linezolid after doses on 02/10/2017. - Continue droplet precautions - Continue incentive spirometer and acapella Thrush - Likely a product of patient being on broad-spectrum antibiotics and prednisone and diabetes mellitus.. - Start nystatin swish and swallow - Begin to taper prednisone to 15 mg a day. Patient normally takes 5 mg a day to keep his polymyositis and temporal arteritis under control. Iron deficiency anemia, present on admission, stable. - Iron studies show low iron and low TIBC. - Hgb 9.1 initially - Typed and crossed. - CT abdomen as above - Stool Guaiac negative - Follow H&H - IV iron infusion 200 mg once has been given - Started PO ferrous 325 mg once daily with vitamin C 500 mg once daily on 02/05. We will continue - Scheduled Senna to prevent constipation from iron supplement - Blood transfusion of two units of PRBCs was given. Consent obtained from patient and verbal consent from patient's obtained over the phone at 12:31 PM on 02/05/2017. Transaminitis, acute, improving. - Liver function tests continue to normalize - Alk phos within normal limits - Patient had a previous cholecystectomy - Likely toxic hepatitis - Possibly secondary to Zosyn. However, this is unlikely - Pt does not have abdominal pain or abdominal tenderness on exam - Discuss with pharmacy other possible medications that could contribute - We will continue to Hold acetaminophen for now - Continue to monitor Orthostatic hypotension - Orthostatic vital signs showed BP taken in sitting 133/56, standing 99/46 during physical therapy on 02/05/17, which is at least a 20 mmHg fall in systolic pressure and at least a 10 mmHg fall in diastolic pressure - Continue to hold beta td at this time - Continue to encourage PO intake with supplements and snacks Status post possible ground level fall - Pt was found down on ground - Likely related to septic encephalopathy and orthostatic hypotension - CT brain without contrast did not show any intracranial hemorrhage - Chest, pelvic, left shoulder and left wrist x-rays did not show any fractures - Continue to monitor Acute encephalopathy, present on admission, improved. - Most likely septic encephalopathy due to pneumonia below in combination with chronic small vessel ischemic changes as seen on CT brain. Possible encephalitis. - Pelvis x-ray negative, reviewed on admission - CT brain - no acute intra-cranial process - Blood cultures are positive for coagulase negative Staph. This is most likely due to contamination as repeat blood cultures show no growth to date - Antibiotics per infectious disease - Physical therapy to help with pt's weakness and mobility. Consider brain MRI if any focal neurological deficits noted with pt walking. - Continue to monitor Acute kidney failure, present on admission, resolved. - Cr 1.38 on admission, and is now normalized - Follow I/O's closely - Repeat AM labs - Discontinued [place] Septic shock, acute, resolved. - Patient met criteria with fever, respiratory rate, and heart rate. Patient has positive blood cultures and pneumonia. - Patient was hypotensive on 01/31/17 in the evening and remained hypotensive until receiving 3 liters of fluid - Patient initially started on ceftriaxone and azithromycin both now discontinued. Linezolid was added (01/31/17) for MRSA coverage. Pt started on Zosyn and PO vancomycin to cover for aspiration pneumonia and possible C.difficile infection on 02/03/17. - Infectious disease consulted and following, their time and recommendations are appreciated. 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 Possibly adrenal insufficiency contributing to above hypotension. - Pt started on stress dosing of steroids. Given 1 dose of methylprednisolone 125 mg IV once on 01/31/17 and then 40 mg IV every 12 hours. Started taper to prednisone 40 mg once daily, then prednisone 20 mg once daily on 02/05/17. 02/05 would be day 5 of a prednisone burst, we will taper slowly due to recent evidence of adrenal insufficiency. We will therefore decrease prednisone from 20 mg a day to 15 mg a day. Would recommend discharging on 10 mg a day on Tuesday and further doses can be tapered back to his baseline by his primary care doctor. - Monitor patient's response to steroids and will adjust dose accordingly Bacteremia, acute, resolved. - Blood cultures showed gram positive cocci, probable coagulase negative Staph , which was likely a contaminant - HIV and hepatitis C screens ordered - Repeat blood cultures show no growth to date - Echocardiogram as above did not show any signs of endocarditis Rhabdomyolysis, present on admission, resolved. - CK 996, decreased to 192 on 02/03/17 - Initial UA yellow, protein 100, RBC 3-10, occult blood moderate - Discontinued normal saline Non insulin using type II Diabetes, present on admission, active - Swallow evaluation as above - HgbA1c 6.2%. - Hold home glipizide during hospital stay - Low dose correctional Lispro insulin scale with basal insulin Lantus 5 units once daily Possible left forearm cellulitis and left anterior chest blister, acute, improving. - Erythema and edema surrounding an abrasion on his left forearm. Pt also had a blister on his left upper chest. - Wound consulted and following. Their time and recommendations are appreciated. - Continue to monitor - Antibiotics as above Aortic dissection, present on admission, active. - CT Abdomen - Short segment dissection or penetrating atherosclerotic ulcer redemonstrated within the aorta with increased thrombus within the false lumen. Previous imaging 05/20/2008 Focal dissection versus ulcerated plaque involving the distal abdominal aorta - Monitor blood pressure Atrial fibrillation on Chronic anticoagulation, Subtherapeutic, present on admission, Active. - Restart metoprolol 12.5 mg by mouth twice a day - Continue Warfarin for Afib, currently sinus rhythm - INR 1.17 initially - Continue home warfarin, pharmacy to dose - Restart Clopidgrel, Low phosphorus level, acute, present on admission, resolved. - Phosphorous level 1.1 but increased to 2.7 - Replenished with IV phosphorous Coronary artery disease with chest pain last night - NSTEMI in 08/2016 with 1 drug eluting stent to the RCA - Pt was discharged on atorvastatin, metoprolol, and clopidogrel - Clopidgrel has been on hold. Discussed case with patient's inspector technician Dr. Jackson today and he would like the patient to be on prednisone for an entire year after placement of his drug-eluting stent. Therefore the patient was restarted with 300 mg today and 75 mg by mouth daily thereafter. - Restart metoprolol 12.5 mg by mouth twice a day - Consider starting an ACEI/ARB now that kidney function has returned to normal Gout - Restart home allopurinol due to possible acute kidney injury as above BPH - Restart home Flomax and monitor urine output and blood pressure for now and resume if blood pressure stable Depression - Continue citalopram 10 mg once daily Acetaminophen for mild pain when necessary. Bowel regimen Senna and MiraLAX scheduled and PRN. Zofran when necessary for nausea and vomiting. Exam Vital Signs (Last) Date Time Temp Pulse Resp B/P Pulse Ox O2 Delivery O2 Flow Rate FiO2 02/10/17 10:49 69 124/61 02/10/17 10:46 92 Nasal Cannula 2.00 02/10/17 05:48 36.7 18 Exam NAD RRR nl s1 s2 no mrg CTAB no W,C S,ND,NT<BS+ warm, no edema Test 01/30/17 19:10 01/30/17 20:30 01/31/17 06:00 02/01/17 01:34 Hemoglobin A1c 6.2% (4.8-5.6) Urine Color Yellow (YELLOW) Urine Appearance Clear (CLEAR,HAZY) Urine pH 5.5 (5.0-8.0) Urine Specific [place] 1.030 (1.003-1.035) Urine Protein 100mg/dL (NEG,TRACE) Urine Glucose (UA) Negativemg/dL (NEGATIVE) Urine Ketones 15mg/dL (NEGATIVE) Urine Occult Blood Moderate (NEGATIVE) Urine Nitrite Negative (NEGATIVE) Urine Bilirubin Negative (NEGATIVE) Urine Urobilinogen Normalmg/dL (NORMAL) Urine Leukocyte Esterase Negative (NEGATIVE) Urine RBC 3-10/hpf (0-2) Urine WBC 0-5/hpf (0-5) Urine Epithelial Cells None/hpf (NONE-MOD) Urine Crystals None seen (NONE SEEN) Urine Bacteria Few/hpf (NONE-FEW) Urine Hyaline Casts None/lpf (NONE) Urine Granular Casts None seen (NONE SEEN) Urine Waxy Casts None seen (NONE SEEN) Urine Red Blood Cell Casts None seen (NONE SEEN) Urine White Blood Cell Casts None seen (NONE SEEN) Urine Mucus None seen (None Seen) Urine Trichomonas None seen (NONE SEEN) Urine Yeast None (NONE SEEN) Urinalysis Comment None Urine Legionella pneumophilia Ag Negative (Negative) Lactic Acid Level 1.2mmol/L (0.4-2.0) Test 02/01/17 04:25 02/01/17 09:33 02/03/17 05:20 02/06/17 03:25 Iron Level 15ug/dL (35-150) Total Iron Binding Capacity 246ug/dL (250-450) Percent Iron Saturation 6%sat (15-50) Unsaturated Iron Binding 230.8ug/dL Ferritin 296ng/mL (30-400) Hold Ernst Top Tube Received (Received) HIV (1&2) Ag and Ab, 4th Generation Non reactive (Non Reactive) Total Creatine Kinase 192U/L (21-232) Band Neutrophils % 3% (1-5) Metamyelocytes % 2% (0-0) Nucleated Red Blood Cells 2/100 WBC (0-24) Test 02/07/17 06:30 02/09/17 05:20 02/10/17 06:15 Phosphorus Level 2.7mg/dL (2.5-4.9) Procalcitonin 0.10ng/mL (0.00-0.08) White Blood Count 9.6th/mm3 (3.8-10.1) Red Blood Count 4.61mil/mm3 (4.40-5.80) Hemoglobin 11.0g/dL (13.8-17.2) Hematocrit 35.4% (41.0-50.0) Mean Corpuscular Volume 76.8fL (81-100) Mean Corpuscular Hemoglobin 23.9pg (27.0-35.0) Mean Corpuscular Hemoglobin Concent 31.1% (32.0-37.0) Red Cell Distribution Width 20.7% (12.3-15.4) Platelet Count 277bil/L (150-400) Neutrophils (%) (Auto) 74.6% (40-74) Lymphocytes (%) (Auto) 18.6% (14-46) Monocytes (%) (Auto) 5.9% (4-12) Eosinophils (%) (Auto) 0% (0-5) Basophils (%) (Auto) 0.1% (0-3) Prothrombin Time 26.8sec (8.1-12.5) Prothromb Time International Ratio 2.46ratio Sodium Level 140mEq/L (134-144) Potassium Level 3.9mEq/L (3.5-5.2) Chloride Level 104mEq/L (97-108) Carbon Dioxide Level 24mmol/L (18-29) Blood Urea Nitrogen 14mg/dL (8-27) Creatinine 0.95mg/dL (0.76-1.27) Estimat Glomerular Filtration Rate 80mL/min (>59) Glucose Level 102mg/dL (60-99) Calcium Level 7.9mg/dL (8.5-10.1) Magnesium Level 2.3mg/dL (1.6-2.6) Total Bilirubin 0.5mg/dL (0.0-1.2) Aspartate Amino Transf (AST/SGOT) 24U/L (0-50) Alanine Aminotransferase (ALT/SGPT) 45U/L (0-44) Alkaline Phosphatase 67U/L (25-160) Troponin T < 0.010ug/L (0.0-0.011) Total Protein 5.4g/dL (6.4-8.4) Albumin 2.9g/dL (3.4-5.0) Microbiology Results Name: MENABAO Age/Sex: 86/M Attend Dr: Lesli Amor Acct: [id number] Unit: [id number] Status: ADM IN Location: [facility] 2020-09 Re01/30/17 Disch: Specimen: [id number] Collected: 01/31/17 Status: LIZETTE Reoneal#: [id number] Received: 01/31/17 Source: NOSE Sp Desc : Subm Dr: HALI TEE DO Ordered: ANAY MRSA PCR Comments: Collected by Nurse/Unit? Y/N Y Procedure Result Verified Site Microbiology ANAY MRSA PCR Final 02/02/17 MRSA BY PCR DETECTED POSITIVE REFERENCE INTERVAL NOT DETECTED Organism 1 MRSA POSITIVE BY PCR SENSITIVITY COMMENTS MRSA confirmed by susceptiblity Discharge Medications Discharge Medications Citalopram (Citalopram) 10 Mg Tablet 10 MG PO DAILY (Reported) Clopidogrel (Clopidogrel) 75 Mg Tablet 75 MG PO DAILY Prescribed by: GIUSEPPE DURON MD Metoprolol Tartrate (Metoprolol Tartrate) 25 Mg Tablet 12.5 MG PO BID Prescribed by: GIUSEPPE DURON MD Prednisone (PredniSONE) 5 Mg Tab 15 MG PO DAILY Prescribed by: GIUSEPPE DURON MD Tamsulosin (Flomax) 0.4 Mg Capsule 0.4 MG PO DAILY (Reported) Warfarin Sodium (Warfarin Sodium) 1 Mg Tablet 3.5 MG PO HS (Reported) Additional med instructions take 15mg of prednisone for one week, then 10mg for one week, then return to normal strength 5mg daily use Mupirocin ointment on bilateral nare for one more day Followup Plan Disposition: home with home health Patient Instructions You were hospitalized with aspiration pneumonia, treated with antibiotics. Your general condition was significantly improved. Please note that your steroid dosage was changed. Please follow up with your primary doctor in 2weeks Follow-up Provider: Favian Lao MD Follow-up with PCP in: 2 weeks Time spent 65min Giuseppe Duron MD February 10, 2017 14:39
== END 2017-02-10 14:41 | disposition home health service (06) | DRG 871 ==
LOC: EDBD 18:55 → SED 18:55 → PCC 21:57 → CCU 02-01 00:31 → PCC 02-01 20:57 → MPC 02-06 23:29
PROVIDERS: ADMIT Internal Medicine; ATTEND Internal Medicine
PROC: 4A033R1 Measurement of Arterial Saturation, Peripheral, Percutaneous Approach (ICD-10-PCS; principal; 2017-02-01)
PROC: 30233N1 Transfusion of Nonautologous Red Blood Cells into Peripheral Vein, Percutaneous Approach (ICD-10-PCS; 2017-02-05)
DX: A41.9 Sepsis, unspecified organism (principal); R65.21 Severe sepsis with septic shock; J69.0 Pneumonitis due to inhalation of food and vomit; G93.41 Metabolic encephalopathy; N17.9 Acute kidney failure, unspecified; M62.82 Rhabdomyolysis; B37.0 Candidal stomatitis; E11.9 Type 2 diabetes mellitus without complications; Z79.01 Long term (current) use of anticoagulants; I25.10 Atherosclerotic heart disease of native coronary artery without angina pectoris; N40.0 Benign prostatic hyperplasia without lower urinary tract symptoms; F32.9 Major depressive disorder, single episode, unspecified; M31.5 Giant cell arteritis with polymyalgia rheumatica; M10.9 Gout, unspecified; K21.9 Gastro-esophageal reflux disease without esophagitis; E78.5 Hyperlipidemia, unspecified; W18.30XA Fall on same level, unspecified, initial encounter; Y92.013 Bedroom of single-family (private) house as the place of occurrence of the external cause; I48.2 Chronic atrial fibrillation; D64.9 Anemia, unspecified; E83.39 Other disorders of phosphorus metabolism; Z79.52 Long term (current) use of systemic steroids; B95.62 Methicillin resistant Staphylococcus aureus infection as the cause of diseases classified elsewhere